=== PATIENT | female | born 1970 | race Caucasian/White ===

== ENCOUNTER 2018-03-29 09:56 | Inpatient (IN) | payer SELFPAY ==
[~2018-03-29] VITALS: Ht 162.6 cm; Wt 135.3 kg
[2018-03-29 11:10] VITALS: BP 153/59
[2018-03-29] MEDS ORDERED: DOCUSATE SODIUM 100 MG CAPSULE. PO PRN (12:00)
[2018-03-29] MEDS ORDERED: ONDANSETRON PF 4 MG/2 ML VIAL. IV PRN (12:00)
[2018-03-29] MEDS ORDERED: ACETAMINOPHEN 325 MG TABLET. PO PRN (12:00)
[2018-03-29] MEDS ORDERED: MORPHINE SULFATE 2 MG/ML VIAL. IV PRN (12:00)
[2018-03-29] MEDS ORDERED: traMADol 50 MG TABLET PO PRN (12:00)
[2018-03-29] MEDS ORDERED: LIDO700A39 TP (12:09)
[2018-03-29] MEDS ORDERED: CLON1PAT TD (12:09)
[2018-03-29] MEDS ORDERED: DIPH25CA58 PO (12:09)
[2018-03-29] MEDS ORDERED: LOSA50TA7 PO (12:09)
[2018-03-29] MEDS ORDERED: FERR325T14 PO (12:09)
[2018-03-29] MEDS ORDERED: L. R1CAP2 PO (12:09)
[2018-03-29] MEDS ORDERED: ONDA4TAB12 PO (12:09)
[2018-03-29] MEDS ORDERED: LACT1CAP19 PO (12:09)
[2018-03-29 12:53] LABS: BASO # 0.1 x10^3/uL (0.0-0.2); BASO % 1 % (0-3); EOS # 0.2 x10^3/uL (0.0-0.7); EOS % 1 % (0-3); HEMATOCRIT 30.6 % (36.0-47.0); HEMOGLOBIN 10.2 g/dL (12.0-15.5); LYMPH # 1.9 x10^3/uL (1.0-4.8); LYMPH % 18 % (24-48); MEAN CORPUSCULAR HEMOGLOBIN 26 pg (25-35); MEAN CORPUSCULAR HGB CONC 33 g/dL (31-37); MEAN CORPUSCULAR VOLUME 77 fL (79-100); MONO # 0.7 x10^3/uL (0.0-1.1); MONO % 7 % (0-9); NEUT # 7.6 x10^3uL (1.8-7.7); NEUT % 72 % (31-73); PLATELET COUNT 245 x10^3/uL (140-400); RED BLOOD COUNT 3.98 x10^6/uL (3.50-5.40); RED CELL DISTRIBUTION WIDTH 18.2 % (11.5-14.5); WHITE BLOOD COUNT 10.5 x10^3/uL (4.0-11.0)
[2018-03-29] MEDS ORDERED: VANCOMYCIN 2 GM in IV NORMAL SALINE 500ML BAG 500 ML IV SCH (13:00)
[2018-03-29] MEDS ORDERED: PIP/TAZO PER PHARMACY MC PRN (13:00)
[2018-03-29] MEDS ORDERED: DEXTROSE 50% 25 GM / 50ML DISP.SYRIN. IV PRN (13:00)
[2018-03-29] MEDS ORDERED: VANCOMYCIN PER PHARMACY MC PRN (13:00)
[2018-03-29] MEDS ORDERED: LABETALOL 20 MG/4 ML DISP.SYRIN. IVP PRN (13:00)
[2018-03-29] MEDS ORDERED: ALBUTEROL SULFATE 2.5 MG/3 ML NEBU. NEB PRN (13:00)
--- NOTE | 2018-03-29 13:01 | PDOC1 ---
History and Physical Date of Admission Date of Admission 03/29/18 Identification/Chief Complaint Chief Complaint AMS Source Source: Chart review, Patient History of Present Illness History of Present Illness 47yO f, WITH dm2, was transferred from [facility] for possible stroke or seizure. Pt is a poor historian. She said she lives a lone, walks ok, not on insulin for dm2. Last , she fell off her bed, could not get up for 5 hours 2/2 weakness. Her sister came to check her that day and called EMS. pt was sent to [facility], was found DKA, bl lower lobe PE, started insulin and lovenox bid. yesterday, as per nurse from [facility], pt became unresponsive, eyes rolling up. But pt doesnot remember and cannot tell me anything. She denies ext weakness or numbness, but during PE pt could not move left leg much. BL hands strengh ok, can move rt leg a little bit, but also very weak. PT DENIEs stroke history, CT showed chronic stroke. She also said she had sob, denies chest pain, fever, chill, cough. She also said low po intake for the past week in [facility], had N/V. [facility] doc didnot tell me that she had PE, i was told by nurse and found + bcx on the transfer paper. Past Medical History Endocrine: Diabetes Past Surgical History Past Surgical History: Hernia Repair Family History Family History: Hypertension Social History Smoke: No ALCOHOL: none Drugs: None Current Medications Current Medications Current Medications Medications (Trade) Dose Ordered Sig/Emmy Start Time Stop Time Status Last Admin Dose Admin Acetaminophen (Tylenol) 650 mg PRN Q6HRS PRN 03/29/18 12:00 UNV Docusate Sodium (Colace) 100 mg PRN DAILY PRN 03/29/18 12:00 UNV Morphine Sulfate (Morphine Sulfate) 2 mg PRN Q2HR PRN 03/29/18 12:00 UNV Ondansetron HCl (Zofran) 4 mg PRN Q6HRS PRN 03/29/18 12:00 UNV Tramadol HCl (Ultram) 50 mg PRN Q6HRS PRN 03/29/18 12:00 UNV ROS Review of System CONSTITUTIONAL: No fever or chills EYES: No recent changes SKIN: No rash or itching CARDIOVASCULAR: No chest pain, syncope, palpitations, or edema RESPIRATORY: No SOB or cough GASTROINTESTINAL: No nausea, vomiting or abdominal pain NEUROLOGICAL: No headaches or weakness ENDOCRINE: No cold or heat intolerance GENITOURINARY: No urgency or frequency of urination MUSCULOSKELETAL: No back pain or joint pain LYMPHATICS: No enlarged lymph nodes PSYCHIATRIC: No anxiety or depression Physical Exam Physical Exam GEN.: No apparent distress. Alert and oriented. forgetful. HEENT: Head is normocephalic, atraumatic NECK: Supple. LUNGS: Clear to auscultation. HEART: RRR, S1, S2 present. Peripheral pulses intact ABDOMEN: Soft, nontender. Positive bowel sounds. ventral hernia reducible no tenderness. EXTREMITIES: Without any cyanosis. bl hands strength 5/5. rt leg strength 3 /5, left leg 2/5. NEUROLOGIC: Normal speech, normal tone PSYCHIATRIC: Normal affect, normal mood. SKIN: No ulcerations Vitals Vitals Vital Signs Date Time Temp Pulse Resp B/P (MAP) Pulse Ox O2 Delivery O2 Flow Rate FiO2 03/29/18 11:10 96.6 61 18 153/59 (90) 96 Room Air 96.6 VTE Prophylaxis Ordered VTE Prophylaxis Devices: Yes VTE Pharmacological Prophylaxi: No Assessment/Plan Assessment/Plan AMS, unresponsiveness at [facility], possible seizure DKA RESOlved BL lower lobe PE bacteremia dm2 uncontrolled, Hba1c >9 morbid obesity ventral hernia LAZARO generalized weakness plan: neuro, id, pulm consult brain MRI cont some home meds, ssi for now ivf ada diet if can tolerate check bcx, add vanco, zosyn for now, asked nurse to see if can get bcx at [facility] PTOT add eliquis bid for PE sw pt may need to go to rehab MARICHUY ESCALERA MD Mar 29, 2018 13:01
[2018-03-29 13:04] LABS: CALCIUM 8.6 mg/dL (8.5-10.1); CREATININE 0.7 mg/dL (0.6-1.0); GFR 89.7; POTASSIUM 3.4 mmol/L (3.5-5.1)
--- NOTE | 2018-03-29 13:43 | RAD ---
EXAM: Chest, single view. HISTORY: Pulmonary embolism. COMPARISON: CT angiogram dated 03/25/2018. FINDINGS: A frontal view of the chest obtained. There is bilateral lower lobe atelectasis or interstitial infiltrate with suspected trace to small pleural effusions. There is a prominent cardiac silhouette. There is no pneumothorax. There is a left PICC with the tip near the junction of the left brachiocephalic vein and superior vena cava. IMPRESSION: 1. Left greater than right lower lobe atelectasis or infiltrate with suspected trace to small pleural effusions. 2. Left PICC with the tip overlying the junction of the left brachiocephalic vein and superior vena cava. Electronically signed by: Blossom Boo MD (03/29/2018 1:39 PM) [place] [id number]
[2018-03-29 14:00] LABS: % BANDS 4 % (0-9); % EOS 2 % (0-5); % LYMPHS 20 % (24-48); % METAS 3 % (0-0); % MONOS 6 % (0-10); % MYELOS 1 % (0-0); % SEGS 64 % (35-66); ANISOCYTOSIS SLIGHT; PLT ESTIMATE ADEQUATE (ADEQUATE)
--- NOTE | 2018-03-29 14:22 | PDOC ---
Provider Note Provider Note pt seen examined [id number] SEBASTIAN NAIDU MD Mar 29, 2018 14:22
[2018-03-29 15:00] VITALS: BP 165/78
[2018-03-29] MEDS: IV NORMAL SALINE 1000ML BAG 1,000 ML IV SCH (15:44)
[2018-03-29] MEDS: PIPERACILLIN/TAZOBACTAM 4.5 GM in IV NORMAL SALINE 100ML 100 ML IV SCH ×2 (15:44→20:05)
[2018-03-29] MEDS: LIDOCAINE (700MG/PATCH) PATCH. TD SCH (15:50)
[2018-03-29] MEDS: INSULIN LISPRO 300 UNITS/3 ML INSULN.PEN. SQ SCH (17:00)
--- NOTE | 2018-03-29 17:33 | RAD ---
MRI Brain without contrast History: Left leg weakness Technique: Multiplanar, multisequential noncontrast MR imaging was performed of the brain. Contrast: None Comparison: None Findings: There 5 foci of restricted diffusion on the right involving the right frontal white matter as well as the right oh radiata and basal ganglia as well as right extreme capsule and insula. There is associated T2 and FLAIR hyperintense signal. There are other old lacunar infarcts of the bilateral basal ganglia and oh radiata and also the right frontal parietal deep white matter. There is degree of exvacuo dilatation of the left lateral ventricle. There is mild generalized supratentorial involutional change. There is other scattered mild T2 and FLAIR hyperintense abnormality of the supratentorial white matter. There is focus of old microhemorrhage along the cortical surface left frontal lobe, also mild hemosiderin deposition associated with dominant old left basal ganglia lacunar infarct. There is preservation of the major arterial intracranial flow voids at the skull base. Cerebellar tonsils are normal in location. There is nonspecific heterogeneous signal of the clivus. Impression: 1. There are foci of recent subacute infarcts on the right involving the right frontal white matter, oh radiata and basal ganglia as well as right extreme capsule and insula. There are several old lacunar infarcts bilaterally as stated. FOR INTERNAL CODING PURPOSES Critical result: Findings discussed with patient's nurse Kayla at 03/29/2018 5:27 PM. RESULT CODE: (C) Electronically signed by: Gautam Kaur MD (03/29/2018 5:30 PM) [id number]
--- NOTE | 2018-03-29 18:22 | CONS ---
DATE OF CONSULTATION: REFERRING PHYSICIAN: Dr. Martinez. REASON FOR CONSULTATION: Gram-positive cocci bacteremia. HISTORY OF PRESENT ILLNESS: A 47-year-old female with history of diabetes mellitus type 2, was transferred from [facility] where she presented on with complaints of not feeling well. The patient has a history of diabetes mellitus, noncompliance. She said that she had not taken her medications for quite some time. She lives alone. She was found on the floor for more than 4 hours per family. Glucose reading by paramedics was high. The patient was found to be in DKA. She had blood cultures done, which are reported 1 out of 2 bottles positive for gram-positive cocci. ID and MALGORZATA is pending from [facility]. She had leukocytosis. Working diagnosis was DKA, sepsis, likely urosepsis. She was given ceftriaxone. She also had elevated BUN and creatinine, dehydration, hyponatremia from DKA, elevated lactate at 5.3, elevated CK from rhabdo, morbid obesity, mental status changes. She had a CT, which did not show any acute changes, but she has a history of previous bibasilar ganglia infarcts, probably chronic. She also had metabolic abnormalities with hypokalemia, which was thought to be from diabetic ketoacidosis with abnormal LFTs, generalized weakness, deconditioning, iron deficiency anemia and protein-calorie malnutrition. She was started on empiric ceftriaxone. She had a CTA, which showed bilateral PE. Today, the patient is not able to tell us anything. She is more alert and awake, answers a few questions, does say that she lives alone at home. Denies any fevers, chills, sore throat, difficulty swallowing, nausea, vomiting, diarrhea, abdominal pain. The patient had sustained a history of fall and has some superficial abrasions. The patient has been started on empiric IV vancomycin and Zosyn here and ID consult has been requested for antibiotic management. PAST MEDICAL HISTORY: Diabetes, noncompliance, history of previous infarct, morbid obesity, DKA at [facility], hypokalemia, hyponatremia, elevated CK, possible UTI, mental status changes. PAST SURGICAL HISTORY: Hernia repair. FAMILY HISTORY: As per HPI. SOCIAL HISTORY: Denies smoking, ETOH or illicit drug use. Lives alone at home. CURRENT MEDICATIONS: IV vancomycin and Zosyn. REVIEW OF SYSTEMS: Limited, but essentially as above in the HPI. PHYSICAL EXAMINATION: VITAL SIGNS: Temperature 96.6, pulse 61, respiratory rate 18, blood pressure 153/59, oxygen saturation 96% on room air. GENERAL: Alert, awake, somewhat confused female in no acute distress, cooperative, answers a few questions in yes and no. HEENT: Normocephalic, atraumatic, anicteric. No thrush. NECK: Supple. LUNGS: Clear bilaterally. HEART: S1, S2. ABDOMEN: Soft, obese. Bowel sounds present. Ventral hernia reducible. No tenderness. EXTREMITIES: No cyanosis, no clubbing. NEUROLOGIC: Alert, awake. Normal speech. PSYCHIATRIC: Normal affect. Cooperative. DERMATOLOGIC: No generalized rash. LABORATORY DATA: WBC 10.5, hemoglobin 10.2, hematocrit 30.6, platelets 245, neutrophils 72. Sodium 142, potassium 3.4, chloride 104, bicarbonate 30, BUN 23, creatinine 0.7, glucose 172, calcium 8.6. MICROBIOLOGY: Blood culture from [facility] on 03/23/2018, 1 out of 2 bottles positive for methicillin-sensitive Staphylococcus epidermidis, oxacillin sensitive. IMPRESSION: 1. Altered mental status, likely from diabetic ketoacidosis, improving. 2. Diabetic ketoacidosis, resolved. 3. Bilateral lower pulmonary embolism. 4. Staphylococcus epidermidis, methicillin-sensitive, Staphylococcus bacteremia, 1 out of 2 bottles on 03/23/2018, likely contaminant. 5. Morbid obesity. 6. Diabetes mellitus 2, uncontrolled. 7. Ventral hernia, stable, reducible 8. Obstructive sleep apnea. 9. Generalized weakness. 10. Rhabdomyolysis. 11. History of urinary tract infection at outside hospital. I do not have the details on the same. RECOMMENDATIONS: 1. We will discontinue IV vancomycin. 2. Continue empiric Zosyn for now. 3. Follow up blood culture results. 4. Continue supportive care. 5. Follow up labs in the a.m. and cultures. Thank you, Dr. Martinez for consulting Infectious Disease to participate in this patient's care. If you have any questions, do not hesitate to contact me. SEBASTIAN NAIDU MD DR: SAV/camille JOB#: [id number] / [id number]
--- NOTE | 2018-03-29 18:53 | PDOC2 ---
NEUROLOGY CONSULT Date of Admission Date of Admission DATE: 03/29/18 TIME: 18:36 Reason for Consult Reason for Consult: IMPRESSION: Subacute right frontal WM, oh radiata, BG, insular, and external capsule infracts, embolic etiology. Metabolic encephalopathy. PE. Hyperglycemia, glucose 573. DKA. DM, poorly controlled. UTI. Lactic acidosis. Old bilateral hemisphere lacunar infarcts. Morbid obesity. RECOMMENDATIONS/PLAN: Continue Eliquis. Carotid A US + Doppler. Echo + bubble study. Lab: see orders, including fasting lipids panel. Treat medical diseases. Control hyperglycemia. OT/PT. Weight reduction. HISTORY OF THE PRESENT ILLNESS: 47-y-old patient with above medical diseases fell over the bed and was unable to get up. She was on the floor for about 5 hours until her sister went to her place to check on her. She was brought to the ER of [facility] by EMS, and was eventually transferred to [facility]. Her glucose level was 473. She had confusional episodes, so neurology was requested for consultation. PAST MEDICAL HISTORY: Diabetes, noncompliance. Stroke. Morbid obesity. DKA at [facility], hypokalemia, hyponatremia, elevated CK, possible UTI , mental status changes. PAST SURGICAL HISTORY: Hernia repair. ALLERGY: Reviewed. MEDICATIONS: Refer to [facility] FAMILY HISTORY: Unknown. SOCIAL HISTORY: Lives alone. Denies current smoking, drinking, and illicit drug use. REVIEW OF SYSTEMS: Constitutional: Morbid obesity. Head: No traumatic brain or head injury. Skin: No edema, or rash. Ear: No infection. Eyes: No vision loss or color blindness. Nose: No bleeding or purulent discharges. Hearing: No hearing decrease. Neck: No injury. Breast: No history of cancer, masses,or discharges. Cardiac: No ND, arrhythmia. Pulmonary: No COPD. GI: No GI ulcer, GI bleeding. Urinary/genital: UTI. Endocrinologic: Diabetes Mellitus, morbid obesity. Skeletomuscular: No muscular atrophy, deformity. Neurological: see HP. Psychiatric: Denies drug use/abuse. Otherwise, not [id number] review of systems. PHYSICAL EXAMINATION: General appearance is in subacute distress. HEENT: Normocephalic and nontraumatic. Eyes, nose, ears, and throat are unremarkable. Neck is supple. No lymphadenopathy. No crepitus. Cardiovascular: S1, S2, regular rate and rhythm. Pulmonary: Clear to auscultation bilaterally. Abdomen: Bowel sounds are positive. Extremities: No rash, lesions, or edema. No restriction of range of motion NEUROLOGICAL EXAMINATION: Awake. Not oriented to time, but knew place and person. PERRL. EOMI. CN: no focal findings. Muscle tone: decreased. Muscle strength: 4+ UE, 3- LE? DTR: 0-1 due to obesity. Plantar reflex: Flexor response bilaterally Gait: Not able to walk. Sensory exam: no acute abnormal findings. No cerebellar signs elicited. F-T-N test fine. Current Medications Current Medications Current Medications Acetaminophen (Tylenol) 650 mg PRN Q6HRS PRN PO FEVER; Start 03/29/18 at 12:00 Ondansetron HCl (Zofran) 4 mg PRN Q6HRS PRN IV NAUSEA/VOMITING; Start 03/29/18 at 12:00 Morphine Sulfate (Morphine Sulfate) 2 mg PRN Q2HR PRN IV MODERATE TO SEVERE PAIN; Start 03/29/18 at 12:00 Tramadol HCl (Ultram) 50 mg PRN Q6HRS PRN PO MILD TO MODERATE PAIN; Start 03/29 at 12:00 Docusate Sodium (Colace) 100 mg PRN DAILY PRN PO CONSTIPATION; Start 03/29/18 at 12:00 Clonidine HCl (Catapres Tts-1) 1 patch We TD ; Start 04/04/18 at 09:00 Ferrous Sulfate (Feosol) 325 mg DAILY08 PO ; Start 03/30/18 at 08:00 Losartan Potassium (Cozaar) 50 mg DAILY PO ; Start 03/30/18 at 09:00 Lidocaine (Lidoderm) 1 patch DAILY TD Last administered on 03/29/18at 15:50; Start 03/29/18 at 15:00 Vancomycin HCl (Vanco Per Pharmacy) 1 each PRN DAILY PRN MC SEE COMMENTS; Start 03/29/18 at 13:00; Stop 03/29/18 at 14:23; Status DC Vancomycin HCl 2 gm/Sodium Chloride 500 ml @ 250 mls/hr Q12H IV ; Start at 13:00; Stop 03/29/18 at 14:23; Status DC Piperacillin Sod/ Tazobactam Sod 4.5 gm/Sodium Chloride 100 ml @ 200 mls/hr Q6HRS IV Last administered on 03/29/18at 15:44; Start 03/29/18 at 15:00 Piperacillin Sod/ Tazobactam Sod (Zosyn Per Pharmacy) 1 each PRN DAILY PRN MC SEE COMMENTS; Start 03/29/18 at 13:00 Apixaban (Eliquis) 10 mg BID PO ; Start 03/29/18 at 21:00 Insulin Human Lispro (HumaLOG) 0-9 UNITS TIDWMEALS SQ ; Start 03/29/18 at 17:00 Dextrose (Dextrose 50%-Water Syringe) 12.5 gm PRN Q15MIN PRN IV SEE COMMENTS; Start 03/29/18 at 13:00 Sodium Chloride 1,000 ml @ 75 mls/hr [id number] IV Last administered on at 15:44; Start 03/29/18 at 13:00 Albuterol Sulfate (Ventolin Neb Soln) 2.5 mg PRN Q4HRS PRN NEB SHORTNESS OF BREATH; Start 03/29/18 at 13:00 Labetalol HCl (Normodyne Iv Push) 20 mg PRN Q2HR PRN IVP HYPERTENSION, SEE COMMENTS; Start 03/29/18 at 13:00 Active Scripts Active Reported Benadryl (Diphenhydramine Hcl) 25 Mg Capsule 50 Mg PO HS Clonidine Tts-1 (Clonidine) 1 Each Patch.tdwk 1 Patch TD WEEKLY Ondansetron Odt (Ondansetron) 4 Mg Tab.rapdis 4 Mg PO BID PRN Losartan Potassium 50 Mg Tablet 50 Mg PO DAILY Lidocaine 1 Each Adh..patch 1 Each TP DAILY Culturelle (Lactobacillus Rhamnosus Gg) 1 Each Cap.sprink 1 Each PO BID Culturelle Capsule (L. Rhamnosus GG/Inulin) 1 Each Cap.sprink 1 Each PO Ferrous Sulfate 325 Mg Tablet 1 Tab PO DAILY Allergies Allergies: Allergies Coded Allergies Type Severity Reaction Last Updated Verified No Known Drug Allergies 03/29/18 No ROS Review of System The patient denies any associated fevers, chills, headache, ear pain, rhinorrhea , sore throat, stiff neck, productive cough, chest pain, shortness of breath, back or flank pain, abdominal pain, nausea, vomiting, diarrhea, constipation, dysuria, rash, numbness, weakness, tingling, incontinence, difficulty ambulating, or diaphoresis. Physical Exam Physical Exam General: Well developed, well nourished, no acute distress, well appearing HEENT: Pupils equally round and reactive to light, EOMI, no discharge, normal conjunctiva Neck: Supple, no nuchal rigidity, no JVD, trachea midline, no tenderness Cardiac: RRR, no murmurs, no gallops, no rubs Chest/Lungs: CTAB, no wheeze, no rhonchi, no crackles Abdomen: soft, non-distended, no guarding, no peritoneal signs, non-tender Back: No tenderness Extremities: no edema, pulses intact, non-tender,capillary refill <3 sec bilateral upper and lower extremities, Neuro: Alert and oriented x 4, no focal deficits, normal speech Vitals Vitals: Vital Signs Date Time Temp Pulse Resp B/P (MAP) Pulse Ox O2 Delivery O2 Flow Rate FiO2 03/29/18 15:00 98.5 80 18 165/78 (107) 96 Room Air 98.5 Labs Labs Laboratory Tests Test 03/29/18 12:40 03/29/18 17:36 White Blood Count 10.5 x10^3/uL (4.0-11.0) Red Blood Count 3.98 x10^6/uL (3.50-5.40) Hemoglobin 10.2 g/dL (12.0-15.5) Hematocrit 30.6 % (36.0-47.0) Mean Corpuscular Volume 77 fL (79-100) Mean Corpuscular Hemoglobin 26 pg (25-35) Mean Corpuscular Hemoglobin Concent 33 g/dL (31-37) Red Cell Distribution Width 18.2 % (11.5-14.5) Platelet Count 245 x10^3/uL (140-400) Neutrophils (%) (Auto) 72 % (31-73) Lymphocytes (%) (Auto) 18 % (24-48) Monocytes (%) (Auto) 7 % (0-9) Eosinophils (%) (Auto) 1 % (0-3) Basophils (%) (Auto) 1 % (0-3) Neutrophils # (Auto) 7.6 x10^3uL (1.8-7.7) Lymphocytes # (Auto) 1.9 x10^3/uL (1.0-4.8) Monocytes # (Auto) 0.7 x10^3/uL (0.0-1.1) Eosinophils # (Auto) 0.2 x10^3/uL (0.0-0.7) Basophils # (Auto) 0.1 x10^3/uL (0.0-0.2) Segmented Neutrophils % 64 % (35-66) Band Neutrophils % 4 % (0-9) Lymphocytes % 20 % (24-48) Monocytes % 6 % (0-10) Eosinophils % 2 % (0-5) Metamyelocytes % 3 % (0-0) Myelocytes % 1 % (0-0) Platelet Estimate Adequate (ADEQUATE) Giant Platelets Occ Anisocytosis Slight Sodium Level 142 mmol/L (136-145) Potassium Level 3.4 mmol/L (3.5-5.1) Chloride Level 104 mmol/L (98-107) Carbon Dioxide Level 30 mmol/L (21-32) Anion Gap 8 (6-14) Blood Urea Nitrogen 23 mg/dL (7-20) Creatinine 0.7 mg/dL (0.6-1.0) Estimated GFR (Cockcroft-Gault) 89.7 Glucose Level 172 mg/dL (70-99) Calcium Level 8.6 mg/dL (8.5-10.1) Glucose (Fingerstick) 156 mg/dL (70-99) Laboratory Tests Test 03/29/18 12:40 03/29/18 17:36 White Blood Count 10.5 x10^3/uL (4.0-11.0) Red Blood Count 3.98 x10^6/uL (3.50-5.40) Hemoglobin 10.2 g/dL (12.0-15.5) Hematocrit 30.6 % (36.0-47.0) Mean Corpuscular Volume 77 fL (79-100) Mean Corpuscular Hemoglobin 26 pg (25-35) Mean Corpuscular Hemoglobin Concent 33 g/dL (31-37) Red Cell Distribution Width 18.2 % (11.5-14.5) Platelet Count 245 x10^3/uL (140-400) Neutrophils (%) (Auto) 72 % (31-73) Lymphocytes (%) (Auto) 18 % (24-48) Monocytes (%) (Auto) 7 % (0-9) Eosinophils (%) (Auto) 1 % (0-3) Basophils (%) (Auto) 1 % (0-3) Neutrophils # (Auto) 7.6 x10^3uL (1.8-7.7) Lymphocytes # (Auto) 1.9 x10^3/uL (1.0-4.8) Monocytes # (Auto) 0.7 x10^3/uL (0.0-1.1) Eosinophils # (Auto) 0.2 x10^3/uL (0.0-0.7) Basophils # (Auto) 0.1 x10^3/uL (0.0-0.2) Segmented Neutrophils % 64 % (35-66) Band Neutrophils % 4 % (0-9) Lymphocytes % 20 % (24-48) Monocytes % 6 % (0-10) Eosinophils % 2 % (0-5) Metamyelocytes % 3 % (0-0) Myelocytes % 1 % (0-0) Platelet Estimate Adequate (ADEQUATE) Giant Platelets Occ Anisocytosis Slight Sodium Level 142 mmol/L (136-145) Potassium Level 3.4 mmol/L (3.5-5.1) Chloride Level 104 mmol/L (98-107) Carbon Dioxide Level 30 mmol/L (21-32) Anion Gap 8 (6-14) Blood Urea Nitrogen 23 mg/dL (7-20) Creatinine 0.7 mg/dL (0.6-1.0) Estimated GFR (Cockcroft-Gault) 89.7 Glucose Level 172 mg/dL (70-99) Calcium Level 8.6 mg/dL (8.5-10.1) Glucose (Fingerstick) 156 mg/dL (70-99) GOVIND DUMONT MD Mar 29, 2018 18:52
[2018-03-29 19:00] VITALS: BP 171/83
[2018-03-29] MEDS ORDERED: APIXABAN 5 MG TABLET. PO SCH (21:00)
[2018-03-29 23:00] VITALS: BP 170/83
[2018-03-30] MEDS: PIPERACILLIN/TAZOBACTAM 4.5 GM in IV NORMAL SALINE 100ML 100 ML IV SCH ×2 (00:18→05:09)
[2018-03-30] MEDS: IV NORMAL SALINE 1000ML BAG 1,000 ML IV SCH ×2 (02:20→15:33)
[2018-03-30 03:00] VITALS: BP 149/74
[2018-03-30 04:45] LABS: BASO # 0.1 x10^3/uL (0.0-0.2); BASO % 1 % (0-3); EOS # 0.2 x10^3/uL (0.0-0.7); EOS % 2 % (0-3); HEMATOCRIT 30.3 % (36.0-47.0); HEMOGLOBIN 9.6 g/dL (12.0-15.5); LYMPH # 1.6 x10^3/uL (1.0-4.8); LYMPH % 17 % (24-48); MEAN CORPUSCULAR HEMOGLOBIN 25 pg (25-35); MEAN CORPUSCULAR HGB CONC 32 g/dL (31-37); MEAN CORPUSCULAR VOLUME 80 fL (79-100); MONO # 0.7 x10^3/uL (0.0-1.1); MONO % 8 % (0-9); NEUT # 7.1 x10^3uL (1.8-7.7); NEUT % 73 % (31-73); PLATELET COUNT 199 x10^3/uL (140-400); RED BLOOD COUNT 3.78 x10^6/uL (3.50-5.40); WHITE BLOOD COUNT 9.8 x10^3/uL (4.0-11.0)
[2018-03-30 05:35] LABS: CALCIUM 8.2 mg/dL (8.5-10.1); CREATININE 0.8 mg/dL (0.6-1.0); GFR 76.9; POTASSIUM 3.6 mmol/L (3.5-5.1)
[2018-03-30 06:23] LABS: CHOLESTEROL/HDL RATIO 8.5
[2018-03-30 07:00] VITALS: BP 160/50
--- NOTE | 2018-03-30 08:23 | RAD ---
Carotid ultrasound, 03/29/2018: HISTORY: CVA, left-sided weakness, diabetes Duplex evaluation of the carotid arteries and neck was performed including grayscale, color-flow and spectral Doppler analysis. There is mild intimal thickening bilaterally. No prominent plaque formation is seen. The peak systolic velocity in the proximal right common carotid artery is 170 cm/s and on the left is 186 cm/s at this level. These relatively high velocities may be related to hypertension. No stenosis is seen. The peak systolic velocity in the right internal carotid artery is 68 cm per sec with an end-diastolic velocity of 26 cm/s. The peak systolic velocity in the left internal carotid artery is 84 cm per sec with an end-diastolic velocity of 34 cm/s. These Doppler findings do not suggest significant stenosis. Antegrade flow is present in both vertebral arteries in the neck. IMPRESSION: No duplex evidence of a significant stenosis at either carotid bifurcation. Note: Stenosis calculations for CT, MRA and conventional angiography are based upon determination of the distal ICA diameter in accordance with the NASCET methodology. Stenosis calculations for Doppler studies are derived from validated velocity criteria which are known to correlate with NASCET methodology of determining stenosis. Electronically signed by: Chriss Neri MD (03/30/2018 8:20 AM) [facility]
--- NOTE | 2018-03-30 10:00 | CONS ---
DATE OF CONSULTATION: ATTENDING PHYSICIAN: Dr. Martinez. REASON FOR CONSULTATION: Pulmonary embolism. HISTORY OF PRESENT ILLNESS: The patient is a 47-year-old female who is obese with a BMI of 51.8. The patient lives alone, and she is not fully active, but does ambulate. She has diabetes as well. She says that she fell off her bed. She could not get up for 5 hours and had weakness. Her sister who came to check on her called EMS. She went to [facility], she was found to be in DKA and also had a CT angiogram which was reviewed by me and had bilateral lower lobe pulmonary embolism and no central pulmonary emboli seen. She was started on Lovenox and yesterday she became unresponsive and could not remember what happened. The patient's venous Dopplers were negative. She was transferred for further evaluation. Neurology saw the patient. The patient underwent MRI of the brain and was found to have foci of recent subacute infarcts involving the right frontal matter as well as a basal ganglia and oh radiata. There are also several lacunar infarcts seen. I have been asked to see her for further evaluation. The patient denies any history of malignancy. Denies any history of hypercoagulable disorders. She has been on Eliquis. PAST MEDICAL HISTORY: Significant for history of diabetes. No significant history of tobacco use. No prior history of pulmonary embolism. PAST SURGICAL HISTORY: Hernia repair. FAMILY HISTORY: Hypertension. No hypercoagulable state in the family. SOCIAL HISTORY: Nonsmoker, nonalcoholic. ALLERGIES: None. MEDICATIONS: All reviewed as listed in the MRAD including Eliquis and antibiotics. PHYSICAL EXAMINATION: GENERAL: She is awake, in no obvious respiratory distress. VITAL SIGNS: Reviewed. Blood pressure on the high side 160/50, afebrile, pulse ox 93% on room air. NECK: Supple. LUNGS: With diminished breath sounds. CARDIOVASCULAR: Regular rate and rhythm. ABDOMEN: Soft. She has a large inguinal hernia. EXTREMITIES: Nonpitting edema. LABORATORY DATA: Reviewed. White cell count 9.8, hemoglobin 9.6 and platelets of 199. BUN 19, creatinine 0.8. Echocardiogram has been ordered and pending. Venous Dopplers were negative. IMPRESSION: 1. Acute pulmonary embolism in a patient who is morbidly obese with a BMI of 51.8 and fell off her bed last week. Her morbid obesity and immobilization appeared to be likely risk factors. However, she should be ruled out for hypercoagulable state. Venous Dopplers were negative. The patient should also be ruled out for any intracardiac shunt as she has developed embolic lacunar infarcts. 2. Recent encephalopathy and brain MRI showing recent subacute infarcts as well as several old lacunar infarcts. 3. No significant history of tobacco use. 4. No known malignancy and no known hypercoagulable state. RECOMMENDATIONS: 1. From a pulmonary standpoint, she is hemodynamically stable and currently on room air. I will continue with Eliquis for a minimum of 3-6 months. 2. Obtain hypercoagulable panel. 3. Obtain echocardiogram to rule out any right to left shunt. 4. Antibiotics per Infectious Disease. 5. She will have a repeat CT angiogram in 6 weeks. BANDAR BENOIT MD DR: CARLINE/camille JOB#: [id number] / [id number]
[2018-03-30 11:00] VITALS: BP 133/86
--- NOTE | 2018-03-30 11:00 | CARD ---
MR#: [id number] Date of Study: 03/30/2018 Ordering Physician: GOVIND DUMONT, Referring Physician: MARICHUY ESCALERA Tech: Petty Rashid RDCS APPROVED REPORT EXAM: Two-dimensional and M-mode echocardiogram with Doppler and color Doppler. Other Information Quality : Good INDICATION CVA/TIA Echo Enhancing Agent Agent/Amount Used: Agitated Saline 24mL 2D DIMENSIONS RVDd2.7 (2.9-3.5cm)Left Atrium(2D)4.2 (1.6-4.0cm) IVSd1.6 (0.7-1.1cm)Aortic Root(2D)3.2 (2.0-3.7cm) LVDd4.8 (3.9-5.9cm)LVOT Diameter2.4 (1.8-2.4cm) PWd1.5 (0.7-1.1cm)LVDs2.6 (2.5-4.0cm) FS (%) 30.0 %SV82.1 ml LVEF(%)60.0 (>50%) Aortic Valve AoV Peak Danilo.164.8cm/sAoV VTI30.7cm AO Peak GR.10.9mmHgLVOT VTI 23.02cm AO Mean GR.6mmHgAVA (VTI)3.30cm2 AI P 1/2 [id number] Mitral Valve MV E Xyomrluq28.3cm/sMV DECEL [id number] MV A Uorihjuc83.2cm/sE/A Ratio1.1 TDI Lateral E' P. V8.04cm/sMedial E' P. V7.21cm/s E/Lateral E'10.9E/Medial E'12.1 Pulmonary Vein S1 Wmqnpegj32.7cm/sS2 Bvetkvqc85.72cm/s D2 Dyprbihh11.7cm/s LEFT VENTRICLE The left ventricle is normal size. There is mild to moderate concentric left ventricular hypertrophy. The left ventricular systolic function is normal . The Ejection Fraction is 60-65%. There is normal LV segmental wall motion. The left ventricular diastolic function and filling is normal for age. RIGHT VENTRICLE The right ventricle is normal size. The right ventricular systolic function is normal. ATRIA The left atrium is mildly dilated. The right atrium is mildly dilated. The interatrial septum is inta ct with no evidence for an atrial septal defect or patent foramen ovale as noted on 2-D or Doppler im aging. Injection of bubbles documented no interatrial shunt. AORTIC VALVE The aortic valve is calcified but opens well. Doppler and Color Flow revealed trace aortic regurgitat ion. There is no significant aortic valvular stenosis. MITRAL VALVE The mitral valve is normal in structure and function. There is no evidence of mitral valve prolapse. There is no mitral valve stenosis. Doppler and Color-flow revealed trace mitral regurgitation. TRICUSPID VALVE The tricuspid valve is normal in structure and function. Doppler and Color Flow revealed no tricuspid valve regurgitation noted. There is no tricuspid valve stenosis. PULMONIC VALVE The pulmonic valve is not well visualized. Doppler and Color Flow revealed mild pulmonic valvular reg urgitation. There is no pulmonic valvular stenosis. GREAT VESSELS The aortic root is normal in size. The ascending aorta is mildly dilated at 3.7 cm. The IVC is dilate d and collapses >50% with inspiration. PERICARDIAL EFFUSION There is no evidence of significant pericardial effusion. Critical Notification Critical Value: No <Conclusion> The left ventricular systolic function is normal . The Ejection Fraction is 60-65%. There is normal LV segmental wall motion. Doppler and Color-flow revealed trace mitral regurgitation. There is no evidence of significant pericardial effusion. Injection of bubbles documented no interatrial shunt. Signed by : Fred Amato, Electronically Approved : 03/30/2018 10:59:47
[2018-03-30] MEDS: INSULIN LISPRO 300 UNITS/3 ML INSULN.PEN. SQ SCH ×3 (12:30→17:00)
[2018-03-30] MEDS: FERROUS SULFATE 325 MG TABLET. PO SCH (12:32)
[2018-03-30] MEDS: LOSARTAN POTASSIUM 50 MG TABLET. PO SCH (12:32)
[2018-03-30] MEDS: LIDOCAINE (700MG/PATCH) PATCH. TD SCH (12:33)
--- NOTE | 2018-03-30 12:33 | PDOC ---
PROGRESS NOTES Chief Complaint Chief Complaint Subacute right frontal stroke Obesity, BMI 52 Negative carotids Left-sided weakness Huge abd hernia, chronic History of Present Illness History of Present Illness sHe came for left-sided weakness and some difficulty swallowing-but did pass TIME [employer] on regular diet Left-side still weak Unfortunately self-pay Does have subacute stroke on MRI Claims was not any blood thinners at home CArotids neg Plan: Echo, start aspirin if not yet on aspirin Lipid panel PT OT while here Self-pay neuro consulted Vitals Vitals Vital Signs Date Time Temp Pulse Resp B/P (MAP) Pulse Ox O2 Delivery O2 Flow Rate FiO2 03/30/18 07:00 96.6 77 18 160/50 (86) 93 Room Air 96.6 Physical Exam General: Oriented X3, Cooperative, No acute distress, Other (no dysarthria appreciable) Heart: Regular rate, Normal S1, Normal S2 Lungs: Clear Abdomen: Normal bowel sounds, Soft Extremities: No clubbing, No cyanosis Skin: No rashes, No breakdown Labs LABS Laboratory Tests Test 03/29/18 12:40 03/29/18 17:36 03/29/18 20:57 03/30/18 04:15 White Blood Count 10.5 x10^3/uL (4.0-11.0) 9.8 x10^3/uL (4.0-11.0) Red Blood Count 3.98 x10^6/uL (3.50-5.40) 3.78 x10^6/uL (3.50-5.40) Hemoglobin 10.2 g/dL (12.0-15.5) 9.6 g/dL (12.0-15.5) Hematocrit 30.6 % (36.0-47.0) 30.3 % (36.0-47.0) Mean Corpuscular Volume 77 fL (79-100) 80 fL (79-100) Mean Corpuscular Hemoglobin 26 pg (25-35) 25 pg (25-35) Mean Corpuscular Hemoglobin Concent 33 g/dL (31-37) 32 g/dL (31-37) Red Cell Distribution Width 18.2 % (11.5-14.5) 18.0 % (11.5-14.5) Platelet Count 245 x10^3/uL (140-400) 199 x10^3/uL (140-400) Neutrophils (%) (Auto) 72 % (31-73) 73 % (31-73) Lymphocytes (%) (Auto) 18 % (24-48) 17 % (24-48) Monocytes (%) (Auto) 7 % (0-9) 8 % (0-9) Eosinophils (%) (Auto) 1 % (0-3) 2 % (0-3) Basophils (%) (Auto) 1 % (0-3) 1 % (0-3) Neutrophils # (Auto) 7.6 x10^3uL (1.8-7.7) 7.1 x10^3uL (1.8-7.7) Lymphocytes # (Auto) 1.9 x10^3/uL (1.0-4.8) 1.6 x10^3/uL (1.0-4.8) Monocytes # (Auto) 0.7 x10^3/uL (0.0-1.1) 0.7 x10^3/uL (0.0-1.1) Eosinophils # (Auto) 0.2 x10^3/uL (0.0-0.7) 0.2 x10^3/uL (0.0-0.7) Basophils # (Auto) 0.1 x10^3/uL (0.0-0.2) 0.1 x10^3/uL (0.0-0.2) Segmented Neutrophils % 64 % (35-66) Band Neutrophils % 4 % (0-9) Lymphocytes % 20 % (24-48) Monocytes % 6 % (0-10) Eosinophils % 2 % (0-5) Metamyelocytes % 3 % (0-0) Myelocytes % 1 % (0-0) Platelet Estimate Adequate (ADEQUATE) Giant Platelets Occ Anisocytosis Slight Sodium Level 142 mmol/L (136-145) 142 mmol/L (136-145) Potassium Level 3.4 mmol/L (3.5-5.1) 3.6 mmol/L (3.5-5.1) Chloride Level 104 mmol/L (98-107) 105 mmol/L (98-107) Carbon Dioxide Level 30 mmol/L (21-32) 24 mmol/L (21-32) Anion Gap 8 (6-14) 13 (6-14) Blood Urea Nitrogen 23 mg/dL (7-20) 19 mg/dL (7-20) Creatinine 0.7 mg/dL (0.6-1.0) 0.8 mg/dL (0.6-1.0) Estimated GFR (Cockcroft-Gault) 89.7 76.9 Glucose Level 172 mg/dL (70-99) 201 mg/dL (70-99) Calcium Level 8.6 mg/dL (8.5-10.1) 8.2 mg/dL (8.5-10.1) Glucose (Fingerstick) 156 mg/dL (70-99) 231 mg/dL (70-99) Triglycerides Level 288 mg/dL (0-150) Cholesterol Level 195 mg/dL (0-200) LDL Cholesterol, Calculated 114 mg/dL (0-100) VLDL Cholesterol, Calculated 58 mg/dL (0-40) Non-HDL Cholesterol Calculated 172 mg/dL (0-129) HDL Cholesterol 23 mg/dL (40-60) Cholesterol/HDL Ratio 8.5 Test 03/30/18 08:04 03/30/18 11:22 Glucose (Fingerstick) 204 mg/dL (70-99) 242 mg/dL (70-99) Review of Systems Review of Systems As per history of present illness, the rest of ROS 14 point negative Comment Review of Relevant I have reviewed the following items rex (where applicable) has been applied. Labs Laboratory Tests Test 03/29/18 12:40 03/29/18 17:36 03/29/18 20:57 03/30/18 04:15 White Blood Count 10.5 x10^3/uL (4.0-11.0) 9.8 x10^3/uL (4.0-11.0) Red Blood Count 3.98 x10^6/uL (3.50-5.40) 3.78 x10^6/uL (3.50-5.40) Hemoglobin 10.2 g/dL (12.0-15.5) 9.6 g/dL (12.0-15.5) Hematocrit 30.6 % (36.0-47.0) 30.3 % (36.0-47.0) Mean Corpuscular Volume 77 fL (79-100) 80 fL (79-100) Mean Corpuscular Hemoglobin 26 pg (25-35) 25 pg (25-35) Mean Corpuscular Hemoglobin Concent 33 g/dL (31-37) 32 g/dL (31-37) Red Cell Distribution Width 18.2 % (11.5-14.5) 18.0 % (11.5-14.5) Platelet Count 245 x10^3/uL (140-400) 199 x10^3/uL (140-400) Neutrophils (%) (Auto) 72 % (31-73) 73 % (31-73) Lymphocytes (%) (Auto) 18 % (24-48) 17 % (24-48) Monocytes (%) (Auto) 7 % (0-9) 8 % (0-9) Eosinophils (%) (Auto) 1 % (0-3) 2 % (0-3) Basophils (%) (Auto) 1 % (0-3) 1 % (0-3) Neutrophils # (Auto) 7.6 x10^3uL (1.8-7.7) 7.1 x10^3uL (1.8-7.7) Lymphocytes # (Auto) 1.9 x10^3/uL (1.0-4.8) 1.6 x10^3/uL (1.0-4.8) Monocytes # (Auto) 0.7 x10^3/uL (0.0-1.1) 0.7 x10^3/uL (0.0-1.1) Eosinophils # (Auto) 0.2 x10^3/uL (0.0-0.7) 0.2 x10^3/uL (0.0-0.7) Basophils # (Auto) 0.1 x10^3/uL (0.0-0.2) 0.1 x10^3/uL (0.0-0.2) Segmented Neutrophils % 64 % (35-66) Band Neutrophils % 4 % (0-9) Lymphocytes % 20 % (24-48) Monocytes % 6 % (0-10) Eosinophils % 2 % (0-5) Metamyelocytes % 3 % (0-0) Myelocytes % 1 % (0-0) Platelet Estimate Adequate (ADEQUATE) Giant Platelets Occ Anisocytosis Slight Sodium Level 142 mmol/L (136-145) 142 mmol/L (136-145) Potassium Level 3.4 mmol/L (3.5-5.1) 3.6 mmol/L (3.5-5.1) Chloride Level 104 mmol/L (98-107) 105 mmol/L (98-107) Carbon Dioxide Level 30 mmol/L (21-32) 24 mmol/L (21-32) Anion Gap 8 (6-14) 13 (6-14) Blood Urea Nitrogen 23 mg/dL (7-20) 19 mg/dL (7-20) Creatinine 0.7 mg/dL (0.6-1.0) 0.8 mg/dL (0.6-1.0) Estimated GFR (Cockcroft-Gault) 89.7 76.9 Glucose Level 172 mg/dL (70-99) 201 mg/dL (70-99) Calcium Level 8.6 mg/dL (8.5-10.1) 8.2 mg/dL (8.5-10.1) Glucose (Fingerstick) 156 mg/dL (70-99) 231 mg/dL (70-99) Triglycerides Level 288 mg/dL (0-150) Cholesterol Level 195 mg/dL (0-200) LDL Cholesterol, Calculated 114 mg/dL (0-100) VLDL Cholesterol, Calculated 58 mg/dL (0-40) Non-HDL Cholesterol Calculated 172 mg/dL (0-129) HDL Cholesterol 23 mg/dL (40-60) Cholesterol/HDL Ratio 8.5 Test 03/30/18 08:04 03/30/18 11:22 Glucose (Fingerstick) 204 mg/dL (70-99) 242 mg/dL (70-99) Laboratory Tests Test 03/29/18 12:40 03/29/18 17:36 03/29/18 20:57 03/30/18 04:15 White Blood Count 10.5 x10^3/uL (4.0-11.0) 9.8 x10^3/uL (4.0-11.0) Red Blood Count 3.98 x10^6/uL (3.50-5.40) 3.78 x10^6/uL (3.50-5.40) Hemoglobin 10.2 g/dL (12.0-15.5) 9.6 g/dL (12.0-15.5) Hematocrit 30.6 % (36.0-47.0) 30.3 % (36.0-47.0) Mean Corpuscular Volume 77 fL (79-100) 80 fL (79-100) Mean Corpuscular Hemoglobin 26 pg (25-35) 25 pg (25-35) Mean Corpuscular Hemoglobin Concent 33 g/dL (31-37) 32 g/dL (31-37) Red Cell Distribution Width 18.2 % (11.5-14.5) 18.0 % (11.5-14.5) Platelet Count 245 x10^3/uL (140-400) 199 x10^3/uL (140-400) Neutrophils (%) (Auto) 72 % (31-73) 73 % (31-73) Lymphocytes (%) (Auto) 18 % (24-48) 17 % (24-48) Monocytes (%) (Auto) 7 % (0-9) 8 % (0-9) Eosinophils (%) (Auto) 1 % (0-3) 2 % (0-3) Basophils (%) (Auto) 1 % (0-3) 1 % (0-3) Neutrophils # (Auto) 7.6 x10^3uL (1.8-7.7) 7.1 x10^3uL (1.8-7.7) Lymphocytes # (Auto) 1.9 x10^3/uL (1.0-4.8) 1.6 x10^3/uL (1.0-4.8) Monocytes # (Auto) 0.7 x10^3/uL (0.0-1.1) 0.7 x10^3/uL (0.0-1.1) Eosinophils # (Auto) 0.2 x10^3/uL (0.0-0.7) 0.2 x10^3/uL (0.0-0.7) Basophils # (Auto) 0.1 x10^3/uL (0.0-0.2) 0.1 x10^3/uL (0.0-0.2) Segmented Neutrophils % 64 % (35-66) Band Neutrophils % 4 % (0-9) Lymphocytes % 20 % (24-48) Monocytes % 6 % (0-10) Eosinophils % 2 % (0-5) Metamyelocytes % 3 % (0-0) Myelocytes % 1 % (0-0) Platelet Estimate Adequate (ADEQUATE) Giant Platelets Occ Anisocytosis Slight Sodium Level 142 mmol/L (136-145) 142 mmol/L (136-145) Potassium Level 3.4 mmol/L (3.5-5.1) 3.6 mmol/L (3.5-5.1) Chloride Level 104 mmol/L (98-107) 105 mmol/L (98-107) Carbon Dioxide Level 30 mmol/L (21-32) 24 mmol/L (21-32) Anion Gap 8 (6-14) 13 (6-14) Blood Urea Nitrogen 23 mg/dL (7-20) 19 mg/dL (7-20) Creatinine 0.7 mg/dL (0.6-1.0) 0.8 mg/dL (0.6-1.0) Estimated GFR (Cockcroft-Gault) 89.7 76.9 Glucose Level 172 mg/dL (70-99) 201 mg/dL (70-99) Calcium Level 8.6 mg/dL (8.5-10.1) 8.2 mg/dL (8.5-10.1) Glucose (Fingerstick) 156 mg/dL (70-99) 231 mg/dL (70-99) Triglycerides Level 288 mg/dL (0-150) Cholesterol Level 195 mg/dL (0-200) LDL Cholesterol, Calculated 114 mg/dL (0-100) VLDL Cholesterol, Calculated 58 mg/dL (0-40) Non-HDL Cholesterol Calculated 172 mg/dL (0-129) HDL Cholesterol 23 mg/dL (40-60) Cholesterol/HDL Ratio 8.5 Test 03/30/18 08:04 03/30/18 11:22 Glucose (Fingerstick) 204 mg/dL (70-99) 242 mg/dL (70-99) Medications Current Medications Acetaminophen (Tylenol) 650 mg PRN Q6HRS PRN PO FEVER; Start 03/29/18 at 12:00 Ondansetron HCl (Zofran) 4 mg PRN Q6HRS PRN IV NAUSEA/VOMITING; Start 03/29/18 at 12:00 Morphine Sulfate (Morphine Sulfate) 2 mg PRN Q2HR PRN IV MODERATE TO SEVERE PAIN; Start 03/29/18 at 12:00 Tramadol HCl (Ultram) 50 mg PRN Q6HRS PRN PO MILD TO MODERATE PAIN; Start 03/29 at 12:00 Docusate Sodium (Colace) 100 mg PRN DAILY PRN PO CONSTIPATION; Start 03/29/18 at 12:00 Clonidine HCl (Catapres Tts-1) 1 patch We TD ; Start 04/04/18 at 09:00 Ferrous Sulfate (Feosol) 325 mg DAILY08 PO ; Start 03/30/18 at 08:00 Losartan Potassium (Cozaar) 50 mg DAILY PO ; Start 03/30/18 at 09:00 Lidocaine (Lidoderm) 1 patch DAILY TD Last administered on 03/29/18at 15:50; Start 03/29/18 at 15:00 Vancomycin HCl (Vanco Per Pharmacy) 1 each PRN DAILY PRN MC SEE COMMENTS; Start 03/29/18 at 13:00; Stop 03/29/18 at 14:23; Status DC Vancomycin HCl 2 gm/Sodium Chloride 500 ml @ 250 mls/hr Q12H IV ; Start at 13:00; Stop 03/29/18 at 14:23; Status DC Piperacillin Sod/ Tazobactam Sod 4.5 gm/Sodium Chloride 100 ml @ 200 mls/hr Q6HRS IV Last administered on 03/30/18at 05:09; Start 03/29/18 at 15:00 Piperacillin Sod/ Tazobactam Sod (Zosyn Per Pharmacy) 1 each PRN DAILY PRN MC SEE COMMENTS; Start 03/29/18 at 13:00 Apixaban (Eliquis) 10 mg BID PO Last administered on 03/29/18at 21:35; Start at 21:00 Insulin Human Lispro (HumaLOG) 0-9 UNITS TIDWMEALS SQ ; Start 03/29/18 at 17:00 Dextrose (Dextrose 50%-Water Syringe) 12.5 gm PRN Q15MIN PRN IV SEE COMMENTS; Start 03/29/18 at 13:00 Sodium Chloride 1,000 ml @ 75 mls/hr [id number] IV Last administered on at 15:44; Start 03/29/18 at 13:00 Albuterol Sulfate (Ventolin Neb Soln) 2.5 mg PRN Q4HRS PRN NEB SHORTNESS OF BREATH; Start 03/29/18 at 13:00 Labetalol HCl (Normodyne Iv Push) 20 mg PRN Q2HR PRN IVP HYPERTENSION, SEE COMMENTS; Start 03/29/18 at 13:00 Atorvastatin Calcium (Lipitor) 40 mg QHS PO ; Start 03/30/18 at 21:00 Active Scripts Active Reported Benadryl (Diphenhydramine Hcl) 25 Mg Capsule 50 Mg PO HS Clonidine Tts-1 (Clonidine) 1 Each Patch.tdwk 1 Patch TD WEEKLY Ondansetron Odt (Ondansetron) 4 Mg Tab.rapdis 4 Mg PO BID PRN Losartan Potassium 50 Mg Tablet 50 Mg PO DAILY Lidocaine 1 Each Adh..patch 1 Each TP DAILY Culturelle (Lactobacillus Rhamnosus Gg) 1 Each Cap.sprink 1 Each PO BID Culturelle Capsule (L. Rhamnosus GG/Inulin) 1 Each Cap.sprink 1 Each PO Ferrous Sulfate 325 Mg Tablet 1 Tab PO DAILY Vitals/I & O Vital Sign - Last 24 Hours 03/29/18 03/29/18 03/29/18 03/29/18 15:00 19:00 20:00 23:00 Temp 98.5 97.9 98.1 98.5 97.9 98.1 Pulse 80 83 85 Resp 18 18 18 B/P (MAP) 165/78 (107) 171/83 (112) 170/83 (112) Pulse Ox 96 94 94 O2 Delivery Room Air Room Air Room Air Room Air 03/30/18 03/30/18 03:00 07:00 Temp 98.4 96.6 98.4 96.6 Pulse 80 77 Resp 16 18 B/P (MAP) 149/74 (99) 160/50 (86) Pulse Ox 93 93 O2 Delivery Room Air Room Air Intake and Output 03/29/18 03/29/18 03/30/18 15:00 23:00 07:00 Intake Total 720 ml 480 ml Output Total 2 ml Balance 718 ml 480 ml RADHA MIRANDA MD Mar 30, 2018 12:33
--- NOTE | 2018-03-30 13:11 | PDOC ---
Infectious Disease Note Subjective: Subjective Pt says feels ok lethargic no pain no headache ROS: ROS Negative except for above. Vital Signs: Vital Signs Vital Signs Date Time Temp Pulse Resp B/P (MAP) Pulse Ox O2 Delivery O2 Flow Rate FiO2 03/30/18 12:32 77 160/50 03/30/18 11:00 98.2 16 94 Room Air 98.2 Physical Exam: PHYSICAL EXAM GENERAL: Alert, awake, somewhat confused female in no acute distress, cooperative, answers a few questions in yes and no. HEENT: Normocephalic, atraumatic, anicteric. No thrush. NECK: Supple. LUNGS: Clear bilaterally. HEART: S1, S2. ABDOMEN: Soft, obese. Bowel sounds present. Ventral hernia reducible. No tenderness. EXTREMITIES: No cyanosis, no clubbing. NEUROLOGIC: Alert, awake. Normal speech. PSYCHIATRIC: Normal affect. Cooperative. DERMATOLOGIC: No generalized rash. Medications: Inpatient Meds: Current Medications Medications (Trade) Dose Ordered Sig/Emmy Start Time Stop Time Status Last Admin Dose Admin Acetaminophen (Tylenol) 650 mg PRN Q6HRS PRN 03/29/18 12:00 Albuterol Sulfate (Ventolin Neb Soln) 2.5 mg PRN Q4HRS PRN 03/29/18 13:00 Apixaban (Eliquis) 10 mg BID 03/29/18 21:00 03/30/18 12:37 DC 03/29/18 21:35 10 MG Aspirin (Ecotrin) 325 mg [id number] 03/30/18 13:00 Atorvastatin Calcium (Lipitor) 40 mg QHS 03/30/18 21:00 Clonidine HCl (Catapres Tts-1) 1 patch We 04/04/18 09:00 Dextrose (Dextrose 50%-Water Syringe) 12.5 gm PRN Q15MIN PRN 03/29/18 13:00 Docusate Sodium (Colace) 100 mg PRN DAILY PRN 03/29/18 12:00 Ferrous Sulfate (Feosol) 325 mg DAILY08 03/30/18 08:00 03/30/18 12:32 325 MG Insulin Human Lispro (HumaLOG) 0-9 UNITS TIDWMEALS 03/29/18 17:00 03/30/18 12:39 5 UNITS Labetalol HCl (Normodyne Iv Push) 20 mg PRN Q2HR PRN 03/29/18 13:00 Lidocaine (Lidoderm) 1 patch DAILY 03/29/18 15:00 03/30/18 12:33 1 PATCH Losartan Potassium (Cozaar) 50 mg DAILY 03/30/18 09:00 03/30/18 12:32 50 MG Morphine Sulfate (Morphine Sulfate) 2 mg PRN Q2HR PRN 03/29/18 12:00 Ondansetron HCl (Zofran) 4 mg PRN Q6HRS PRN 03/29/18 12:00 Piperacillin Sod/ Tazobactam Sod (Zosyn Per Pharmacy) 1 each PRN DAILY PRN 03/29/18 13:00 03/30/18 12:36 DC Piperacillin Sod/ Tazobactam Sod 4.5 gm/Sodium Chloride 100 ml @ 200 mls/hr Q6HRS 03/29/18 15:00 03/30/18 12:35 DC 03/30/18 05:09 200 MLS/HR Sodium Chloride 1,000 ml @ 75 mls/hr [id number] 03/29/18 13:00 03/29/18 15:44 75 MLS/HR Tramadol HCl (Ultram) 50 mg PRN Q6HRS PRN 03/29/18 12:00 Vancomycin HCl (Vanco Per Pharmacy) 1 each PRN DAILY PRN 03/29/18 13:00 03/29/18 14:23 DC Vancomycin HCl 2 gm/Sodium Chloride 500 ml @ 250 mls/hr Q12H 03/29/18 13:00 03/29/18 14:23 DC Labs: Lab Laboratory Tests Test 03/29/18 17:36 03/29/18 20:57 03/30/18 04:15 03/30/18 08:04 Glucose (Fingerstick) 156 mg/dL (70-99) 231 mg/dL (70-99) 204 mg/dL (70-99) White Blood Count 9.8 x10^3/uL (4.0-11.0) Red Blood Count 3.78 x10^6/uL (3.50-5.40) Hemoglobin 9.6 g/dL (12.0-15.5) Hematocrit 30.3 % (36.0-47.0) Mean Corpuscular Volume 80 fL (79-100) Mean Corpuscular Hemoglobin 25 pg (25-35) Mean Corpuscular Hemoglobin Concent 32 g/dL (31-37) Red Cell Distribution Width 18.0 % (11.5-14.5) Platelet Count 199 x10^3/uL (140-400) Neutrophils (%) (Auto) 73 % (31-73) Lymphocytes (%) (Auto) 17 % (24-48) Monocytes (%) (Auto) 8 % (0-9) Eosinophils (%) (Auto) 2 % (0-3) Basophils (%) (Auto) 1 % (0-3) Neutrophils # (Auto) 7.1 x10^3uL (1.8-7.7) Lymphocytes # (Auto) 1.6 x10^3/uL (1.0-4.8) Monocytes # (Auto) 0.7 x10^3/uL (0.0-1.1) Eosinophils # (Auto) 0.2 x10^3/uL (0.0-0.7) Basophils # (Auto) 0.1 x10^3/uL (0.0-0.2) Sodium Level 142 mmol/L (136-145) Potassium Level 3.6 mmol/L (3.5-5.1) Chloride Level 105 mmol/L (98-107) Carbon Dioxide Level 24 mmol/L (21-32) Anion Gap 13 (6-14) Blood Urea Nitrogen 19 mg/dL (7-20) Creatinine 0.8 mg/dL (0.6-1.0) Estimated GFR (Cockcroft-Gault) 76.9 Glucose Level 201 mg/dL (70-99) Calcium Level 8.2 mg/dL (8.5-10.1) Triglycerides Level 288 mg/dL (0-150) Cholesterol Level 195 mg/dL (0-200) LDL Cholesterol, Calculated 114 mg/dL (0-100) VLDL Cholesterol, Calculated 58 mg/dL (0-40) Non-HDL Cholesterol Calculated 172 mg/dL (0-129) HDL Cholesterol 23 mg/dL (40-60) Cholesterol/HDL Ratio 8.5 Test 03/30/18 11:22 Glucose (Fingerstick) 242 mg/dL (70-99) Objective: Assessment: 1. Altered mental status, likely from diabetic ketoacidosis, improving. 2. Diabetic ketoacidosis, resolved. 3. Bilateral lower pulmonary embolism. 4. Staphylococcus epidermidis, methicillin-sensitive, Staphylococcus bacteremia, 1 out of 2 bottles on 03/23/2018, likely contaminant. 5. Morbid obesity. 6. Diabetes mellitus 2, uncontrolled. 7. Ventral hernia, stable, reducible 8. Obstructive sleep apnea. 9. Generalized weakness. 10. Rhabdomyolysis. 11. History of urinary tract infection at outside hospital. I do not have the details on the same. Plan: Plan of Care Continue empiric Zosyn for now. Follow up blood culture results. Continue supportive care. Follow up labs in the a.m. and cultures. SEBASTIAN NAIDU MD Mar 30, 2018 13:11
[2018-03-30 15:00] VITALS: BP 161/50
[2018-03-30] MEDS: ASPIRIN ENTERIC COATED 325 MG TABLET.DR. PO SCH (15:33)
--- NOTE | 2018-03-30 18:25 | PDOC ---
PROGRESS NOTES Assessment Assessment Subacute right frontal WM, oh radiata, BG, insular, and external capsule infracts, embolic etiology. Metabolic encephalopathy. PE. Hyperglycemia, glucose 573. DKA. DM, poorly controlled. HLD. UTI. Lactic acidosis. Old bilateral hemisphere lacunar infarcts. Morbid obesity. RECOMMENDATIONS/PLAN: Continue Eliquis. Lipitor 40 mg HS. Treat medical diseases. Control hyperglycemia. OT/PT. Weight reduction. Carotid A US + Doppler: No high grade stenosis. Echo + Bubble study: Unremarkable. HISTORY OF THE PRESENT ILLNESS: 47-y-old patient with above medical diseases fell over the bed and was unable to get up. She was on the floor for about 5 hours until her sister went to her place to check on her. She was brought to the ER of [facility] by EMS, and was eventually transferred to [facility]. Her glucose level was 473. She had confusional episodes, so neurology was requested for consultation. PAST MEDICAL HISTORY: Diabetes, noncompliance. Stroke. Morbid obesity. DKA at [facility], hypokalemia, hyponatremia, elevated CK, possible UTI , mental status changes. PAST SURGICAL HISTORY: Hernia repair. ALLERGY: Reviewed. MEDICATIONS: Refer to [facility] FAMILY HISTORY: Unknown. SOCIAL HISTORY: Lives alone. Denies current smoking, drinking, and illicit drug use. REVIEW OF SYSTEMS: Constitutional: Morbid obesity. Head: No traumatic brain or head injury. Skin: No edema, or rash. Ear: No infection. Eyes: No vision loss or color blindness. Nose: No bleeding or purulent discharges. Hearing: No hearing decrease. Neck: No injury. Breast: No history of cancer, masses,or discharges. Cardiac: No MA, arrhythmia. Pulmonary: No COPD. GI: No GI ulcer, GI bleeding. Urinary/genital: UTI. Endocrinologic: Diabetes Mellitus, morbid obesity. Skeletomuscular: No muscular atrophy, deformity. Neurological: see HP. Psychiatric: Denies drug use/abuse. Otherwise, not [id number] review of systems. PHYSICAL EXAMINATION: General appearance is in subacute distress. HEENT: Normocephalic and nontraumatic. Eyes, nose, ears, and throat are unremarkable. Neck is supple. No lymphadenopathy. No crepitus. Cardiovascular: S1, S2, regular rate and rhythm. Pulmonary: Clear to auscultation bilaterally. Abdomen: Bowel sounds are positive. Extremities: No rash, lesions, or edema. No restriction of range of motion NEUROLOGICAL EXAMINATION: Awake. Not oriented to time, but knew place and person. PERRL. EOMI. CN: no focal findings. Muscle tone: decreased. Muscle strength: 4+ UE, 3- LE DTR: 0-1 due to obesity. Plantar reflex: Flexor response bilaterally Gait: Not able to walk. Sensory exam: no acute abnormal findings. No cerebellar signs elicited. F-T-N test fine. Objective Objective Vital Signs Date Time Temp Pulse Resp B/P (MAP) Pulse Ox O2 Delivery O2 Flow Rate FiO2 03/30/18 15:00 97.1 91 18 161/50 (87) 93 Room Air 97.1 Intake and Output 03/30/18 07:00 Intake Total 1200 ml Output Total 2 ml Balance 1198 ml Intake Oral 1200 ml Output Urine Total 2 ml # Voids 4 Vitals Signs Vitals VS - Last 72 Hours, by Label Date Time Temp Pulse Resp B/P (MAP) Pulse Ox O2 Delivery O2 Flow Rate FiO2 03/30/18 15:00 97.1 91 18 161/50 (87) 93 Room Air 97.1 03/30/18 12:32 77 160/50 03/30/18 11:00 98.2 90 16 133/86 (102) 94 Room Air 98.2 03/30/18 08:00 Room Air 03/30/18 07:00 96.6 77 18 160/50 (86) 93 Room Air 96.6 03/30/18 03:00 98.4 80 16 149/74 (99) 93 Room Air 98.4 03/29/18 23:00 98.1 85 18 170/83 (112) 94 Room Air 98.1 03/29/18 20:00 Room Air 03/29/18 19:00 97.9 83 18 171/83 (112) 94 Room Air 97.9 03/29/18 15:00 98.5 80 18 165/78 (107) 96 Room Air 98.5 03/29/18 12:00 Room Air 03/29/18 11:10 96.6 61 18 153/59 (90) 96 Room Air 96.6 Laboratory Laboratory Laboratory Tests Test 03/29/18 20:57 03/30/18 04:15 03/30/18 08:04 03/30/18 11:22 Glucose (Fingerstick) 231 mg/dL (70-99) 204 mg/dL (70-99) 242 mg/dL (70-99) White Blood Count 9.8 x10^3/uL (4.0-11.0) Red Blood Count 3.78 x10^6/uL (3.50-5.40) Hemoglobin 9.6 g/dL (12.0-15.5) Hematocrit 30.3 % (36.0-47.0) Mean Corpuscular Volume 80 fL (79-100) Mean Corpuscular Hemoglobin 25 pg (25-35) Mean Corpuscular Hemoglobin Concent 32 g/dL (31-37) Red Cell Distribution Width 18.0 % (11.5-14.5) Platelet Count 199 x10^3/uL (140-400) Neutrophils (%) (Auto) 73 % (31-73) Lymphocytes (%) (Auto) 17 % (24-48) Monocytes (%) (Auto) 8 % (0-9) Eosinophils (%) (Auto) 2 % (0-3) Basophils (%) (Auto) 1 % (0-3) Neutrophils # (Auto) 7.1 x10^3uL (1.8-7.7) Lymphocytes # (Auto) 1.6 x10^3/uL (1.0-4.8) Monocytes # (Auto) 0.7 x10^3/uL (0.0-1.1) Eosinophils # (Auto) 0.2 x10^3/uL (0.0-0.7) Basophils # (Auto) 0.1 x10^3/uL (0.0-0.2) Sodium Level 142 mmol/L (136-145) Potassium Level 3.6 mmol/L (3.5-5.1) Chloride Level 105 mmol/L (98-107) Carbon Dioxide Level 24 mmol/L (21-32) Anion Gap 13 (6-14) Blood Urea Nitrogen 19 mg/dL (7-20) Creatinine 0.8 mg/dL (0.6-1.0) Estimated GFR (Cockcroft-Gault) 76.9 Glucose Level 201 mg/dL (70-99) Calcium Level 8.2 mg/dL (8.5-10.1) Triglycerides Level 288 mg/dL (0-150) Cholesterol Level 195 mg/dL (0-200) LDL Cholesterol, Calculated 114 mg/dL (0-100) VLDL Cholesterol, Calculated 58 mg/dL (0-40) Non-HDL Cholesterol Calculated 172 mg/dL (0-129) HDL Cholesterol 23 mg/dL (40-60) Cholesterol/HDL Ratio 8.5 Test 03/30/18 16:48 Glucose (Fingerstick) 152 mg/dL (70-99) Microbiology 03/29/18 Blood Culture - Preliminary, Resulted NO GROWTH AFTER 1 DAY Medication Medications Current Medications Apixaban (Eliquis) 10 mg BID PO Last administered on 03/29/18at 21:35; Start at 21:00; Stop 03/30/18 at 12:37; Status DC Aspirin (Ecotrin) 325 mg DAILYWBKFT PO Last administered on 03/30/18at 15:33; Start 03/30/18 at 13:00 Atorvastatin Calcium (Lipitor) 40 mg QHS PO ; Start 03/30/18 at 21:00 Clonidine HCl (Catapres Tts-1) 1 patch We TD ; Start 04/04/18 at 09:00 Ferrous Sulfate (Feosol) 325 mg DAILY08 PO Last administered on 03/30/18at 12:32 ; Start 03/30/18 at 08:00 Losartan Potassium (Cozaar) 50 mg DAILY PO Last administered on 03/30/18at 12:32 ; Start 03/30/18 at 09:00 Comment Review of Relevant I have reviewed the following items rex (where applicable) has been applied. GOVIND DUMONT MD Mar 30, 2018 18:25
[2018-03-30 19:00] VITALS: BP 186/80
[2018-03-30] MEDS: ATORVASTATIN CALCIUM 40 MG TABLET. PO SCH (21:05)
[2018-03-30 23:00] VITALS: BP 161/78
[2018-03-31 03:00] VITALS: BP 158/70
[2018-03-31] MEDS: IV NORMAL SALINE 1000ML BAG 1,000 ML IV SCH ×2 (04:38→16:43)
[2018-03-31 07:00] VITALS: BP 184/74
[2018-03-31] MEDS: ASPIRIN ENTERIC COATED 325 MG TABLET.DR. PO SCH (08:28)
[2018-03-31] MEDS: FERROUS SULFATE 325 MG TABLET. PO SCH (08:28)
[2018-03-31] MEDS: INSULIN LISPRO 300 UNITS/3 ML INSULN.PEN. SQ SCH ×3 (08:30→16:45)
[2018-03-31] MEDS: LIDOCAINE (700MG/PATCH) PATCH. TD SCH (08:57)
[2018-03-31] MEDS: LOSARTAN POTASSIUM 50 MG TABLET. PO SCH (08:57)
--- NOTE | 2018-03-31 09:02 | PDOC ---
Infectious Disease Note Subjective: Subjective Pt without complaints ROS: ROS Negative except for above. Vital Signs: Vital Signs Vital Signs Date Time Temp Pulse Resp B/P (MAP) Pulse Ox O2 Delivery O2 Flow Rate FiO2 03/31/18 08:57 70 184/74 03/31/18 07:00 99.1 18 96 High Flow Nasal Cannula 2.0 99.1 Physical Exam: PHYSICAL EXAM GENERAL: Alert, awake, somewhat confused female in no acute distress, cooperative, answers a few questions in yes and no. HEENT: Normocephalic, atraumatic, anicteric. No thrush. NECK: Supple. LUNGS: Clear bilaterally. HEART: S1, S2. ABDOMEN: Soft, obese. Bowel sounds present. Ventral hernia reducible. No tenderness. EXTREMITIES: No cyanosis, no clubbing. NEUROLOGIC: Alert, awake. Normal speech. PSYCHIATRIC: Normal affect. Cooperative. DERMATOLOGIC: No generalized rash. Medications: Inpatient Meds: Current Medications Medications (Trade) Dose Ordered Sig/Emmy Start Time Stop Time Status Last Admin Dose Admin Acetaminophen (Tylenol) 650 mg PRN Q6HRS PRN 03/29/18 12:00 Albuterol Sulfate (Ventolin Neb Soln) 2.5 mg PRN Q4HRS PRN 03/29/18 13:00 Apixaban (Eliquis) 10 mg BID 03/31/18 09:00 UNV Aspirin (Ecotrin) 325 mg DAILYWBKFT 03/30/18 13:00 03/31/18 08:28 325 MG Atorvastatin Calcium (Lipitor) 40 mg QHS 03/30/18 21:00 03/30/18 21:05 40 MG Clonidine HCl (Catapres Tts-1) 1 patch We 04/04/18 09:00 Dextrose (Dextrose 50%-Water Syringe) 12.5 gm PRN Q15MIN PRN 03/29/18 13:00 Docusate Sodium (Colace) 100 mg PRN DAILY PRN 03/29/18 12:00 Ferrous Sulfate (Feosol) 325 mg DAILY08 03/30/18 08:00 03/31/18 08:28 325 MG Insulin Human Lispro (HumaLOG) 0-9 UNITS TIDWMEALS 03/29/18 17:00 03/31/18 08:30 4 UNITS Labetalol HCl (Normodyne Iv Push) 20 mg PRN Q2HR PRN 03/29/18 13:00 03/30/18 21:05 20 MG Lidocaine (Lidoderm) 1 patch DAILY 03/29/18 15:00 03/31/18 08:57 1 PATCH Losartan Potassium (Cozaar) 50 mg DAILY 03/30/18 09:00 03/31/18 08:57 50 MG Morphine Sulfate (Morphine Sulfate) 2 mg PRN Q2HR PRN 03/29/18 12:00 Ondansetron HCl (Zofran) 4 mg PRN Q6HRS PRN 03/29/18 12:00 Piperacillin Sod/ Tazobactam Sod (Zosyn Per Pharmacy) 1 each PRN DAILY PRN 03/29/18 13:00 03/30/18 12:36 DC Piperacillin Sod/ Tazobactam Sod 4.5 gm/Sodium Chloride 100 ml @ 200 mls/hr Q6HRS 03/29/18 15:00 03/30/18 12:35 DC 03/30/18 05:09 200 MLS/HR Sodium Chloride 1,000 ml @ 75 mls/hr [id number] 03/29/18 13:00 03/31/18 04:38 75 MLS/HR Tramadol HCl (Ultram) 50 mg PRN Q6HRS PRN 03/29/18 12:00 Vancomycin HCl (Vanco Per Pharmacy) 1 each PRN DAILY PRN 03/29/18 13:00 03/29/18 14:23 DC Vancomycin HCl 2 gm/Sodium Chloride 500 ml @ 250 mls/hr Q12H 03/29/18 13:00 03/29/18 14:23 DC Labs: Lab Laboratory Tests Test 03/30/18 11:22 03/30/18 16:48 03/30/18 20:32 03/31/18 07:35 Glucose (Fingerstick) 242 mg/dL (70-99) 152 mg/dL (70-99) 193 mg/dL (70-99) 167 mg/dL (70-99) Objective: Assessment: 1. Altered mental status, likely from diabetic ketoacidosis, resolved 2. Diabetic ketoacidosis, resolved. 3. Bilateral lower pulmonary embolism. 4. Staphylococcus epidermidis, methicillin-sensitive, Staphylococcus bacteremia, 1 out of 2 bottles on 03/23/2018, likely contaminant. 5. Morbid obesity. 6. Diabetes mellitus 2, uncontrolled. 7. Ventral hernia, stable, reducible 8. Obstructive sleep apnea. 9. Generalized weakness. 10. Rhabdomyolysis. 11. History of urinary tract infection at outside hospital. I do not have the details on the same. Plan: Plan of Care monitor off zosyn Continue supportive care. SEBASTIAN NAIDU MD Mar 31, 2018 09:02
[2018-03-31] MEDS: APIXABAN 5 MG TABLET. PO SCH ×2 (09:33→20:48)
--- NOTE | 2018-03-31 10:03 | PDOC ---
PROGRESS NOTES Chief Complaint Chief Complaint Subacute right frontal stroke morbid Obesity, BMI 52 Pulmonary embolism Left-sided weakness, CVA syndrome, large abd hernia, chronic SIRS, was treated as sepsis syndrome, will wean off abx, no source found DM2, with ketoacidosis on admit, History of Present Illness History of Present Illness left sided hemiplegia, improving subacute stroke on MRI, mult areas noted on neuro noted Plan: Echo, start aspirin if not yet on aspirin Lipid panel PT OT - pt improving, but cannot transfer without assit, Vitals Vitals Vital Signs Date Time Temp Pulse Resp B/P (MAP) Pulse Ox O2 Delivery O2 Flow Rate FiO2 03/31/18 08:57 70 184/74 03/31/18 07:00 99.1 18 96 High Flow Nasal Cannula 2.0 99.1 Physical Exam Physical Exam GENERAL: Alert, awake, somewhat confused female in no acute distress, cooperative, answers a few questions in yes and no. HEENT: Normocephalic, atraumatic, anicteric. No thrush. NECK: Supple. LUNGS: Clear bilaterally. HEART: S1, S2. ABDOMEN: Soft, obese. Bowel sounds present. Ventral hernia reducible. No tenderness. EXTREMITIES: No cyanosis, no clubbing. NEUROLOGIC: Alert, awake. Normal speech. PSYCHIATRIC: Normal affect. Cooperative. DERMATOLOGIC: No generalized rash. General: Oriented X3, Cooperative, No acute distress, Other (no dysarthria appreciable) Heart: Regular rate, Normal S1, Normal S2 Lungs: Clear Abdomen: Normal bowel sounds, Soft Extremities: No clubbing, No cyanosis Skin: No rashes, No breakdown Labs LABS Laboratory Tests Test 03/30/18 11:22 03/30/18 16:48 03/30/18 20:32 03/31/18 07:35 Glucose (Fingerstick) 242 mg/dL (70-99) 152 mg/dL (70-99) 193 mg/dL (70-99) 167 mg/dL (70-99) Review of Systems Review of Systems weakness, no n.v/d slept OK will need some rehab support, Comment Review of Relevant I have reviewed the following items rex (where applicable) has been applied. Labs Laboratory Tests Test 03/29/18 12:40 03/29/18 17:36 03/29/18 20:57 9/21/18 04:15 White Blood Count 10.5 x10^3/uL (4.0-11.0) 9.8 x10^3/uL (4.0-11.0) Red Blood Count 3.98 x10^6/uL (3.50-5.40) 3.78 x10^6/uL (3.50-5.40) Hemoglobin 10.2 g/dL (12.0-15.5) 9.6 g/dL (12.0-15.5) Hematocrit 30.6 % (36.0-47.0) 30.3 % (36.0-47.0) Mean Corpuscular Volume 77 fL (79-100) 80 fL (79-100) Mean Corpuscular Hemoglobin 26 pg (25-35) 25 pg (25-35) Mean Corpuscular Hemoglobin Concent 33 g/dL (31-37) 32 g/dL (31-37) Red Cell Distribution Width 18.2 % (11.5-14.5) 18.0 % (11.5-14.5) Platelet Count 245 x10^3/uL (140-400) 199 x10^3/uL (140-400) Neutrophils (%) (Auto) 72 % (31-73) 73 % (31-73) Lymphocytes (%) (Auto) 18 % (24-48) 17 % (24-48) Monocytes (%) (Auto) 7 % (0-9) 8 % (0-9) Eosinophils (%) (Auto) 1 % (0-3) 2 % (0-3) Basophils (%) (Auto) 1 % (0-3) 1 % (0-3) Neutrophils # (Auto) 7.6 x10^3uL (1.8-7.7) 7.1 x10^3uL (1.8-7.7) Lymphocytes # (Auto) 1.9 x10^3/uL (1.0-4.8) 1.6 x10^3/uL (1.0-4.8) Monocytes # (Auto) 0.7 x10^3/uL (0.0-1.1) 0.7 x10^3/uL (0.0-1.1) Eosinophils # (Auto) 0.2 x10^3/uL (0.0-0.7) 0.2 x10^3/uL (0.0-0.7) Basophils # (Auto) 0.1 x10^3/uL (0.0-0.2) 0.1 x10^3/uL (0.0-0.2) Segmented Neutrophils % 64 % (35-66) Band Neutrophils % 4 % (0-9) Lymphocytes % 20 % (24-48) Monocytes % 6 % (0-10) Eosinophils % 2 % (0-5) Metamyelocytes % 3 % (0-0) Myelocytes % 1 % (0-0) Platelet Estimate Adequate (ADEQUATE) Giant Platelets Occ Anisocytosis Slight Sodium Level 142 mmol/L (136-145) 142 mmol/L (136-145) Potassium Level 3.4 mmol/L (3.5-5.1) 3.6 mmol/L (3.5-5.1) Chloride Level 104 mmol/L (98-107) 105 mmol/L (98-107) Carbon Dioxide Level 30 mmol/L (21-32) 24 mmol/L (21-32) Anion Gap 8 (6-14) 13 (6-14) Blood Urea Nitrogen 23 mg/dL (7-20) 19 mg/dL (7-20) Creatinine 0.7 mg/dL (0.6-1.0) 0.8 mg/dL (0.6-1.0) Estimated GFR (Cockcroft-Gault) 89.7 76.9 Glucose Level 172 mg/dL (70-99) 201 mg/dL (70-99) Calcium Level 8.6 mg/dL (8.5-10.1) 8.2 mg/dL (8.5-10.1) Glucose (Fingerstick) 156 mg/dL (70-99) 231 mg/dL (70-99) Triglycerides Level 288 mg/dL (0-150) Cholesterol Level 195 mg/dL (0-200) LDL Cholesterol, Calculated 114 mg/dL (0-100) VLDL Cholesterol, Calculated 58 mg/dL (0-40) Non-HDL Cholesterol Calculated 172 mg/dL (0-129) HDL Cholesterol 23 mg/dL (40-60) Cholesterol/HDL Ratio 8.5 Test 03/30/18 08:04 03/30/18 11:22 03/30/18 16:48 03/30/18 20:32 Glucose (Fingerstick) 204 mg/dL (70-99) 242 mg/dL (70-99) 152 mg/dL (70-99) 193 mg/dL (70-99) Test 03/31/18 07:35 Glucose (Fingerstick) 167 mg/dL (70-99) Laboratory Tests Test 03/30/18 11:22 03/30/18 16:48 03/30/18 20:32 03/31/18 07:35 Glucose (Fingerstick) 242 mg/dL (70-99) 152 mg/dL (70-99) 193 mg/dL (70-99) 167 mg/dL (70-99) Microbiology 03/29/18 Blood Culture - Preliminary, Resulted NO GROWTH AFTER 1 DAY Medications Current Medications Acetaminophen (Tylenol) 650 mg PRN Q6HRS PRN PO FEVER; Start 03/29/18 at 12:00 Ondansetron HCl (Zofran) 4 mg PRN Q6HRS PRN IV NAUSEA/VOMITING; Start 03/29/18 at 12:00 Morphine Sulfate (Morphine Sulfate) 2 mg PRN Q2HR PRN IV MODERATE TO SEVERE PAIN; Start 03/29/18 at 12:00 Tramadol HCl (Ultram) 50 mg PRN Q6HRS PRN PO MILD TO MODERATE PAIN; Start 03/29 at 12:00 Docusate Sodium (Colace) 100 mg PRN DAILY PRN PO CONSTIPATION; Start 03/29/18 at 12:00 Clonidine HCl (Catapres Tts-1) 1 patch We TD ; Start 04/04/18 at 09:00 Ferrous Sulfate (Feosol) 325 mg DAILY08 PO Last administered on 03/31/18at 08:28 ; Start 03/30/18 at 08:00 Losartan Potassium (Cozaar) 50 mg DAILY PO Last administered on 03/31/18at 08:57 ; Start 03/30/18 at 09:00 Lidocaine (Lidoderm) 1 patch DAILY TD Last administered on 03/31/18at 08:57; Start 03/29/18 at 15:00 Vancomycin HCl (Vanco Per Pharmacy) 1 each PRN DAILY PRN MC SEE COMMENTS; Start 03/29/18 at 13:00; Stop 03/29/18 at 14:23; Status DC Vancomycin HCl 2 gm/Sodium Chloride 500 ml @ 250 mls/hr Q12H IV ; Start at 13:00; Stop 03/29/18 at 14:23; Status DC Piperacillin Sod/ Tazobactam Sod 4.5 gm/Sodium Chloride 100 ml @ 200 mls/hr Q6HRS IV Last administered on 03/30/18at 05:09; Start 03/29/18 at 15:00; Stop at 12:35; Status DC Piperacillin Sod/ Tazobactam Sod (Zosyn Per Pharmacy) 1 each PRN DAILY PRN MC SEE COMMENTS; Start 03/29/18 at 13:00; Stop 03/30/18 at 12:36; Status DC Apixaban (Eliquis) 10 mg BID PO Last administered on 03/29/18at 21:35; Start at 21:00; Stop 03/30/18 at 12:37; Status DC Insulin Human Lispro (HumaLOG) 0-9 UNITS TIDWMEALS SQ Last administered on 03/31at 08:30; Start 03/29/18 at 17:00 Dextrose (Dextrose 50%-Water Syringe) 12.5 gm PRN Q15MIN PRN IV SEE COMMENTS; Start 03/29/18 at 13:00 Sodium Chloride 1,000 ml @ 75 mls/hr [id number] IV Last administered on at 04:38; Start 03/29/18 at 13:00 Albuterol Sulfate (Ventolin Neb Soln) 2.5 mg PRN Q4HRS PRN NEB SHORTNESS OF BREATH; Start 03/29/18 at 13:00 Labetalol HCl (Normodyne Iv Push) 20 mg PRN Q2HR PRN IVP HYPERTENSION, SEE COMMENTS Last administered on 03/30/18at 21:05; Start 03/29/18 at 13:00 Atorvastatin Calcium (Lipitor) 40 mg QHS PO Last administered on 03/30/18at 21: 05; Start 03/30/18 at 21:00 Aspirin (Ecotrin) 325 mg DAILYWBKFT PO Last administered on 03/31/18at 08:28; Start 03/30/18 at 13:00 Apixaban (Eliquis) 10 mg BID PO Last administered on 03/31/18at 09:33; Start at 09:00 Amlodipine Besylate (Norvasc) 2.5 mg DAILY PO ; Start 04/01/18 at 09:00; Status UNV Active Scripts Active Reported Benadryl (Diphenhydramine Hcl) 25 Mg Capsule 50 Mg PO HS Clonidine Tts-1 (Clonidine) 1 Each Patch.tdwk 1 Patch TD WEEKLY Ondansetron Odt (Ondansetron) 4 Mg Tab.rapdis 4 Mg PO BID PRN Losartan Potassium 50 Mg Tablet 50 Mg PO DAILY Lidocaine 1 Each Adh..patch 1 Each TP DAILY Culturelle (Lactobacillus Rhamnosus Gg) 1 Each Cap.sprink 1 Each PO BID Culturelle Capsule (L. Rhamnosus GG/Inulin) 1 Each Cap.sprink 1 Each PO Ferrous Sulfate 325 Mg Tablet 1 Tab PO DAILY Vitals/I & O Vital Sign - Last 24 Hours 03/30/18 03/30/18 03/30/18 03/30/18 11:00 12:32 15:00 19:00 Temp 98.2 97.1 97.5 98.2 97.1 97.5 Pulse 90 77 91 77 Resp 16 18 17 B/P (MAP) 133/86 (102) 160/50 161/50 (87) 186/80 (115) Pulse Ox 94 93 93 O2 Delivery Room Air Room Air Room Air 03/30/18 03/30/18 03/30/18 03/31/18 21:00 21:05 23:00 03:00 Temp 97.5 97.1 97.5 97.1 Pulse 77 76 66 Resp 18 17 B/P (MAP) 186/80 161/78 (105) 158/70 (99) Pulse Ox 94 93 O2 Delivery Room Air Room Air Room Air 03/31/18 03/31/18 07:00 08:57 Temp 99.1 99.1 Pulse 70 70 Resp 18 B/P (MAP) 184/74 (110) 184/74 Pulse Ox 96 O2 Delivery High Flow Nasal Cannula O2 Flow Rate 2.0 Intake and Output 03/30/18 03/30/18 03/31/18 15:00 23:00 07:00 Intake Total 300 ml 2580 ml Output Total 25 ml Balance 275 ml 2580 ml TEO RYDER MD Mar 31, 2018 10:03
--- NOTE | 2018-03-31 10:05 | PDOC ---
PULMONARY PROGRESS NOTES Subjective no soa Vitals Vital Signs Date Time Temp Pulse Resp B/P (MAP) Pulse Ox O2 Delivery O2 Flow Rate FiO2 03/31/18 08:57 70 184/74 03/31/18 07:00 99.1 18 96 High Flow Nasal Cannula 2.0 99.1 General: Alert, No acute distress Lungs: Clear Cardiovascular: S1 Abdomen: Soft, Other (obese) Extremities: Other (1+edema) Labs Laboratory Tests Test 03/29/18 12:40 03/29/18 17:36 03/29/18 20:57 03/30/18 04:15 White Blood Count 10.5 x10^3/uL (4.0-11.0) 9.8 x10^3/uL (4.0-11.0) Red Blood Count 3.98 x10^6/uL (3.50-5.40) 3.78 x10^6/uL (3.50-5.40) Hemoglobin 10.2 g/dL (12.0-15.5) 9.6 g/dL (12.0-15.5) Hematocrit 30.6 % (36.0-47.0) 30.3 % (36.0-47.0) Mean Corpuscular Volume 77 fL (79-100) 80 fL (79-100) Mean Corpuscular Hemoglobin 26 pg (25-35) 25 pg (25-35) Mean Corpuscular Hemoglobin Concent 33 g/dL (31-37) 32 g/dL (31-37) Red Cell Distribution Width 18.2 % (11.5-14.5) 18.0 % (11.5-14.5) Platelet Count 245 x10^3/uL (140-400) 199 x10^3/uL (140-400) Neutrophils (%) (Auto) 72 % (31-73) 73 % (31-73) Lymphocytes (%) (Auto) 18 % (24-48) 17 % (24-48) Monocytes (%) (Auto) 7 % (0-9) 8 % (0-9) Eosinophils (%) (Auto) 1 % (0-3) 2 % (0-3) Basophils (%) (Auto) 1 % (0-3) 1 % (0-3) Neutrophils # (Auto) 7.6 x10^3uL (1.8-7.7) 7.1 x10^3uL (1.8-7.7) Lymphocytes # (Auto) 1.9 x10^3/uL (1.0-4.8) 1.6 x10^3/uL (1.0-4.8) Monocytes # (Auto) 0.7 x10^3/uL (0.0-1.1) 0.7 x10^3/uL (0.0-1.1) Eosinophils # (Auto) 0.2 x10^3/uL (0.0-0.7) 0.2 x10^3/uL (0.0-0.7) Basophils # (Auto) 0.1 x10^3/uL (0.0-0.2) 0.1 x10^3/uL (0.0-0.2) Segmented Neutrophils % 64 % (35-66) Band Neutrophils % 4 % (0-9) Lymphocytes % 20 % (24-48) Monocytes % 6 % (0-10) Eosinophils % 2 % (0-5) Metamyelocytes % 3 % (0-0) Myelocytes % 1 % (0-0) Platelet Estimate Adequate (ADEQUATE) Giant Platelets Occ Anisocytosis Slight Sodium Level 142 mmol/L (136-145) 142 mmol/L (136-145) Potassium Level 3.4 mmol/L (3.5-5.1) 3.6 mmol/L (3.5-5.1) Chloride Level 104 mmol/L (98-107) 105 mmol/L (98-107) Carbon Dioxide Level 30 mmol/L (21-32) 24 mmol/L (21-32) Anion Gap 8 (6-14) 13 (6-14) Blood Urea Nitrogen 23 mg/dL (7-20) 19 mg/dL (7-20) Creatinine 0.7 mg/dL (0.6-1.0) 0.8 mg/dL (0.6-1.0) Estimated GFR (Cockcroft-Gault) 89.7 76.9 Glucose Level 172 mg/dL (70-99) 201 mg/dL (70-99) Calcium Level 8.6 mg/dL (8.5-10.1) 8.2 mg/dL (8.5-10.1) Glucose (Fingerstick) 156 mg/dL (70-99) 231 mg/dL (70-99) Triglycerides Level 288 mg/dL (0-150) Cholesterol Level 195 mg/dL (0-200) LDL Cholesterol, Calculated 114 mg/dL (0-100) VLDL Cholesterol, Calculated 58 mg/dL (0-40) Non-HDL Cholesterol Calculated 172 mg/dL (0-129) HDL Cholesterol 23 mg/dL (40-60) Cholesterol/HDL Ratio 8.5 Test 03/30/18 08:04 03/30/18 11:22 03/30/18 16:48 03/30/18 20:32 Glucose (Fingerstick) 204 mg/dL (70-99) 242 mg/dL (70-99) 152 mg/dL (70-99) 193 mg/dL (70-99) Test 03/31/18 07:35 Glucose (Fingerstick) 167 mg/dL (70-99) Laboratory Tests Test 03/30/18 11:22 03/30/18 16:48 03/30/18 20:32 03/31/18 07:35 Glucose (Fingerstick) 242 mg/dL (70-99) 152 mg/dL (70-99) 193 mg/dL (70-99) 167 mg/dL (70-99) Medications Active Scripts Medications Dose Route/Sig Max Daily Dose Days Date Category Benadryl (Diphenhydramine Hcl) 25 Mg Capsule 50 Mg PO HS 03/29/18 Reported Clonidine Tts-1 (Clonidine) 1 Each Patch.tdwk 1 Patch TD WEEKLY 03/29/18 Reported Ondansetron Odt (Ondansetron) 4 Mg Tab.rapdis 4 Mg PO BID PRN 03/29/18 Reported Losartan Potassium 50 Mg Tablet 50 Mg PO DAILY 03/29/18 Reported Lidocaine 1 Each Adh..patch 1 Each TP DAILY 03/29/18 Reported Culturelle (Lactobacillus Rhamnosus Gg) 1 Each Cap.sprink 1 Each PO BID 03/29/18 Reported Culturelle Capsule (L. Rhamnosus GG/Inulin) 1 Each Cap.sprink 1 Each PO 03/29/18 Reported Ferrous Sulfate 325 Mg Tablet 1 Tab PO DAILY 03/29/18 Reported Impression . 1. Acute pulmonary embolism in a patient who is morbidly obese with a BMI of 51.8 and fell off her bed last week. Her morbid obesity and immobilization appeared to be likely risk factors. However, she should be ruled out for hypercoagulable state. Venous Dopplers were negative. The patient should also be ruled out for any intracardiac shunt as she has developed embolic lacunar infarcts. 2. Recent encephalopathy and brain MRI showing recent subacute infarcts as well as several old lacunar infarcts. 3. No significant history of tobacco use. 4. No known malignancy and no known hypercoagulable state. Plan . 1. From a pulmonary standpoint, she is hemodynamically stable and currently on room air. I will continue with Eliquis for a minimum of 3-6 months. 2. hypercoagulable panel. 3. echocardiogram with no intra cardiac shunt. 4. Antibiotics per Infectious Disease. 5. She will have a repeat CT angiogram in 6 weeks. BANDAR BENOIT MD Mar 31, 2018 10:05
[2018-03-31 11:37] VITALS: BP 189/66
[2018-03-31] MEDS: amLODIPine BESYLATE 2.5 MG TABLET PO SCH (11:48)
--- NOTE | 2018-03-31 14:15 | PDOC ---
PROGRESS NOTES Assessment Assessment Subacute right frontal WM, oh radiata, BG, insular, and external capsule infracts, embolic etiology. Metabolic encephalopathy. PE. Hyperglycemia, glucose 573. DKA. DM, poorly controlled. HLD. UTI. Lactic acidosis. Old bilateral hemisphere lacunar infarcts. Morbid obesity. RECOMMENDATIONS/PLAN: Continue Eliquis. Continue Lipitor 40 mg HS. Treat medical diseases. Control hyperglycemia. OT/PT. Weight reduction. Carotid A US + Doppler: No high grade stenosis. Echo + Bubble study: Unremarkable. HISTORY OF THE PRESENT ILLNESS: 47-y-old patient with above medical diseases fell over the bed and was unable to get up. She was on the floor for about 5 hours until her sister went to her place to check on her. She was brought to the ER of [facility] by EMS, and was eventually transferred to [facility]. Her glucose level was 473. She had confusional episodes, so neurology was requested for consultation. PAST MEDICAL HISTORY: Diabetes, noncompliance. Stroke. Morbid obesity. DKA at [facility], hypokalemia, hyponatremia, elevated CK, possible UTI , mental status changes. PAST SURGICAL HISTORY: Hernia repair. ALLERGY: Reviewed. MEDICATIONS: Refer to [facility] FAMILY HISTORY: Unknown. SOCIAL HISTORY: Lives alone. Denies current smoking, drinking, and illicit drug use. REVIEW OF SYSTEMS: Constitutional: Morbid obesity. Head: No traumatic brain or head injury. Skin: No edema, or rash. Ear: No infection. Eyes: No vision loss or color blindness. Nose: No bleeding or purulent discharges. Hearing: No hearing decrease. Neck: No injury. Breast: No history of cancer, masses,or discharges. Cardiac: No CA, arrhythmia. Pulmonary: No COPD. GI: No GI ulcer, GI bleeding. Urinary/genital: UTI. Endocrinologic: Diabetes Mellitus, morbid obesity. Skeletomuscular: No muscular atrophy, deformity. Neurological: see HP. Psychiatric: Denies drug use/abuse. Otherwise, not [id number] review of systems. PHYSICAL EXAMINATION: General appearance is in subacute distress. HEENT: Normocephalic and nontraumatic. Eyes, nose, ears, and throat are unremarkable. Neck is supple. No lymphadenopathy. No crepitus. Cardiovascular: S1, S2, regular rate and rhythm. Pulmonary: Clear to auscultation bilaterally. Abdomen: Bowel sounds are positive. Extremities: No rash, lesions, or edema. No restriction of range of motion NEUROLOGICAL EXAMINATION: Awake. Not oriented to time, but knew place and person. PERRL. EOMI. CN: no focal findings. Muscle tone: decreased. Muscle strength: 4 DTR: 0-1 due to obesity. Plantar reflex: Flexor response bilaterally Gait: Not able to walk. Sensory exam: no acute abnormal findings. No cerebellar signs elicited. F-T-N test fine. Objective Objective Vital Signs Date Time Temp Pulse Resp B/P (MAP) Pulse Ox O2 Delivery O2 Flow Rate FiO2 03/31/18 11:48 68 189/66 03/31/18 11:37 97.7 18 94 Room Air 97.7 03/31/18 07:00 2.0 Intake and Output 03/31/18 07:00 Intake Total 2880 ml Output Total 25 ml Balance 2855 ml Intake Oral 280 ml IV Total 2600 ml Emesis 25 ml # Voids 7 Vitals Signs Vitals VS - Last 72 Hours, by Label Date Time Temp Pulse Resp B/P (MAP) Pulse Ox O2 Delivery O2 Flow Rate FiO2 03/31/18 11:48 68 189/66 03/31/18 11:37 97.7 68 18 189/66 (107) 94 Room Air 97.7 03/31/18 08:57 70 184/74 03/31/18 08:00 Room Air 03/31/18 07:00 99.1 70 18 184/74 (110) 96 High Flow Nasal Cannula 2.0 99.1 03/31/18 03:00 97.1 66 17 158/70 (99) 93 Room Air 97.1 03/30/18 23:00 97.5 76 18 161/78 (105) 94 Room Air 97.5 03/30/18 21:05 77 186/80 03/30/18 21:00 Room Air 03/30/18 19:00 97.5 77 17 186/80 (115) 93 Room Air 97.5 03/30/18 15:00 97.1 91 18 161/50 (87) 93 Room Air 97.1 03/30/18 12:32 77 160/50 03/30/18 11:00 98.2 90 16 133/86 (102) 94 Room Air 98.2 03/30/18 08:00 Room Air 03/30/18 07:00 96.6 77 18 160/50 (86) 93 Room Air 96.6 Laboratory Laboratory Laboratory Tests Test 03/30/18 16:48 03/30/18 20:32 03/31/18 07:35 03/31/18 11:17 Glucose (Fingerstick) 152 mg/dL (70-99) 193 mg/dL (70-99) 167 mg/dL (70-99) 203 mg/dL (70-99) Microbiology 03/29/18 Blood Culture - Preliminary, Resulted NO GROWTH AFTER 2 DAYS Medication Medications Current Medications Amlodipine Besylate (Norvasc) 2.5 mg DAILY PO Last administered on 03/31/18at 11 :48; Start 03/31/18 at 10:00 Apixaban (Eliquis) 10 mg BID PO Last administered on 03/31/18at 09:33; Start at 09:00 Atorvastatin Calcium (Lipitor) 40 mg QHS PO Last administered on 03/30/18at 21: 05; Start 03/30/18 at 21:00 Clonidine HCl (Catapres Tts-1) 1 patch We TD ; Start 04/04/18 at 09:00 Comment Review of Relevant I have reviewed the following items rex (where applicable) has been applied. GOVIND DUMONT MD Mar 31, 2018 14:15
[2018-03-31 15:33] VITALS: BP 174/66
[2018-03-31 19:00] VITALS: BP 169/78
[2018-03-31] MEDS: ATORVASTATIN CALCIUM 40 MG TABLET. PO SCH (20:48)
[2018-03-31 23:00] VITALS: BP 168/82
[2018-04-01] VITALS (7 sets, daily range): BP systolic 171–193; BP diastolic 69–87
[2018-04-01] MEDS: IV NORMAL SALINE 1000ML BAG 1,000 ML IV SCH (05:16)
[2018-04-01] MEDS: INSULIN LISPRO 300 UNITS/3 ML INSULN.PEN. SQ SCH ×3 (07:51→17:07)
[2018-04-01] MEDS: FERROUS SULFATE 325 MG TABLET. PO SCH (07:51)
[2018-04-01] MEDS: ASPIRIN ENTERIC COATED 325 MG TABLET.DR. PO SCH (07:52)
[2018-04-01] MEDS: APIXABAN 5 MG TABLET. PO SCH ×2 (08:17→20:36)
[2018-04-01] MEDS: amLODIPine BESYLATE 2.5 MG TABLET PO SCH (08:18)
[2018-04-01] MEDS: LIDOCAINE (700MG/PATCH) PATCH. TD SCH (08:19)
[2018-04-01] MEDS: LOSARTAN POTASSIUM 50 MG TABLET. PO SCH (08:19)
--- NOTE | 2018-04-01 08:22 | PDOC ---
Infectious Disease Note Subjective: Subjective Pt without complaints appears lethargic denies any f/c/n/v/d/abdo pain or sob ROS: ROS Negative except for above. Vital Signs: Vital Signs Vital Signs Date Time Temp Pulse Resp B/P (MAP) Pulse Ox O2 Delivery O2 Flow Rate FiO2 04/01/18 03:00 98.7 77 18 180/87 (118) 94 98.7 03/31/18 19:15 Room Air 03/31/18 15:33 2.0 Physical Exam: PHYSICAL EXAM GENERAL: Alert, awake, somewhat confused female in no acute distress, cooperative, answers a few questions in yes and no. HEENT: Normocephalic, atraumatic, anicteric. No thrush. NECK: Supple. LUNGS: Clear bilaterally. HEART: S1, S2. ABDOMEN: Soft, obese. Bowel sounds present. Ventral hernia reducible. No tenderness. EXTREMITIES: No cyanosis, no clubbing. NEUROLOGIC: Alert, awake. Normal speech. PSYCHIATRIC: Normal affect. Cooperative. DERMATOLOGIC: No generalized rash. Medications: Inpatient Meds: Current Medications Medications (Trade) Dose Ordered Sig/Emmy Start Time Stop Time Status Last Admin Dose Admin Acetaminophen (Tylenol) 650 mg PRN Q6HRS PRN 03/29/18 12:00 Albuterol Sulfate (Ventolin Neb Soln) 2.5 mg PRN Q4HRS PRN 03/29/18 13:00 Amlodipine Besylate (Norvasc) 2.5 mg DAILY 03/31/18 10:00 03/31/18 11:48 2.5 MG Apixaban (Eliquis) 10 mg BID 03/31/18 09:00 03/31/18 20:48 10 MG Aspirin (Ecotrin) 325 mg DAILYWBKFT 03/30/18 13:00 04/01/18 07:52 325 MG Atorvastatin Calcium (Lipitor) 40 mg QHS 03/30/18 21:00 03/31/18 20:48 40 MG Clonidine HCl (Catapres Tts-1) 1 patch We 04/04/18 09:00 Dextrose (Dextrose 50%-Water Syringe) 12.5 gm PRN Q15MIN PRN 03/29/18 13:00 Docusate Sodium (Colace) 100 mg PRN DAILY PRN 03/29/18 12:00 Ferrous Sulfate (Feosol) 325 mg DAILY08 03/30/18 08:00 04/01/18 07:51 325 MG Insulin Human Lispro (HumaLOG) 0-9 UNITS TIDWMEALS 03/29/18 17:00 04/01/18 07:51 4 UNITS Labetalol HCl (Normodyne Iv Push) 20 mg PRN Q2HR PRN 03/29/18 13:00 03/30/18 21:05 20 MG Lidocaine (Lidoderm) 1 patch DAILY 03/29/18 15:00 03/31/18 08:57 1 PATCH Losartan Potassium (Cozaar) 50 mg DAILY 03/30/18 09:00 03/31/18 08:57 50 MG Morphine Sulfate (Morphine Sulfate) 2 mg PRN Q2HR PRN 03/29/18 12:00 Ondansetron HCl (Zofran) 4 mg PRN Q6HRS PRN 03/29/18 12:00 Piperacillin Sod/ Tazobactam Sod (Zosyn Per Pharmacy) 1 each PRN DAILY PRN 03/29/18 13:00 03/30/18 12:36 DC Piperacillin Sod/ Tazobactam Sod 4.5 gm/Sodium Chloride 100 ml @ 200 mls/hr Q6HRS 03/29/18 15:00 03/30/18 12:35 DC 03/30/18 05:09 200 MLS/HR Sodium Chloride 1,000 ml @ 75 mls/hr [id number] 03/29/18 13:00 04/01/18 05:16 75 MLS/HR Tramadol HCl (Ultram) 50 mg PRN Q6HRS PRN 03/29/18 12:00 Vancomycin HCl (Vanco Per Pharmacy) 1 each PRN DAILY PRN 03/29/18 13:00 03/29/18 14:23 DC Vancomycin HCl 2 gm/Sodium Chloride 500 ml @ 250 mls/hr Q12H 03/29/18 13:00 03/29/18 14:23 DC Labs: Lab Laboratory Tests Test 03/31/18 11:17 03/31/18 16:28 03/31/18 21:11 04/01/18 07:45 Glucose (Fingerstick) 203 mg/dL (70-99) 212 mg/dL (70-99) 216 mg/dL (70-99) 194 mg/dL (70-99) Objective: Assessment: 1. Altered mental status, likely from diabetic ketoacidosis, resolved 2. Diabetic ketoacidosis, resolved. 3. Bilateral lower pulmonary embolism. 4. Staphylococcus epidermidis, methicillin-sensitive, Staphylococcus bacteremia, 1 out of 2 bottles on 03/23/2018, likely contaminant. 5. Morbid obesity. 6. Diabetes mellitus 2, uncontrolled. 7. Ventral hernia, stable, reducible 8. Obstructive sleep apnea. 9. Generalized weakness. 10. Rhabdomyolysis. 11. History of urinary tract infection at outside hospital. I do not have the details on the same. Plan: Plan of Care monitor off zosyn Continue supportive care. SEBASTIAN NAIDU MD Apr 01, 2018 08:22
--- NOTE | 2018-04-01 10:29 | PDOC ---
PULMONARY PROGRESS NOTES Subjective no soa Vitals Vital Signs Date Time Temp Pulse Resp B/P (MAP) Pulse Ox O2 Delivery O2 Flow Rate FiO2 04/01/18 08:19 74 178/78 04/01/18 08:00 Room Air 04/01/18 07:00 97.5 18 91 97.5 03/31/18 15:33 2.0 General: Alert, No acute distress Lungs: Clear Cardiovascular: S1 Abdomen: Soft, Other (obese) Extremities: Other (1+edema) Labs Laboratory Tests Test 03/30/18 11:22 03/30/18 16:48 03/30/18 20:32 03/31/18 07:35 Glucose (Fingerstick) 242 mg/dL (70-99) 152 mg/dL (70-99) 193 mg/dL (70-99) 167 mg/dL (70-99) Test 03/31/18 11:17 03/31/18 16:28 03/31/18 21:11 04/01/18 07:45 Glucose (Fingerstick) 203 mg/dL (70-99) 212 mg/dL (70-99) 216 mg/dL (70-99) 194 mg/dL (70-99) Laboratory Tests Test 03/31/18 11:17 03/31/18 16:28 03/31/18 21:11 04/01/18 07:45 Glucose (Fingerstick) 203 mg/dL (70-99) 212 mg/dL (70-99) 216 mg/dL (70-99) 194 mg/dL (70-99) Medications Active Scripts Medications Dose Route/Sig Max Daily Dose Days Date Category Benadryl (Diphenhydramine Hcl) 25 Mg Capsule 50 Mg PO HS 03/29/18 Reported Clonidine Tts-1 (Clonidine) 1 Each Patch.tdwk 1 Patch TD WEEKLY 03/29/18 Reported Ondansetron Odt (Ondansetron) 4 Mg Tab.rapdis 4 Mg PO BID PRN 03/29/18 Reported Losartan Potassium 50 Mg Tablet 50 Mg PO DAILY 03/29/18 Reported Lidocaine 1 Each Adh..patch 1 Each TP DAILY 03/29/18 Reported Culturelle (Lactobacillus Rhamnosus Gg) 1 Each Cap.sprink 1 Each PO BID 03/29/18 Reported Culturelle Capsule (L. Rhamnosus GG/Inulin) 1 Each Cap.sprink 1 Each PO 03/29/18 Reported Ferrous Sulfate 325 Mg Tablet 1 Tab PO DAILY 03/29/18 Reported Impression . 1. Acute pulmonary embolism in a patient who is morbidly obese with a BMI of 51.8 and fell off her bed last week. Her morbid obesity and immobilization appeared to be likely risk factors. However, she should be ruled out for hypercoagulable state. Venous Dopplers were negative. The patient should also be ruled out for any intracardiac shunt as she has developed embolic lacunar infarcts. 2. Recent encephalopathy and brain MRI showing recent subacute infarcts as well as several old lacunar infarcts. 3. No significant history of tobacco use. 4. No known malignancy and no known hypercoagulable state. Plan . 1. From a pulmonary standpoint, she is doing well and on room air. I will continue with Eliquis for a minimum of 3-6 months. 2. hypercoagulable panel. 3. echocardiogram with no intra cardiac shunt. 4. Antibiotics per Infectious Disease. 5. She will have a repeat CT angiogram in 6 weeks. BANDAR BENOIT MD Apr 01, 2018 10:29
[2018-04-01] MEDS ORDERED: amLODIPine BESYLATE 2.5 MG TABLET PO SCH (12:45)
[2018-04-01] MEDS ORDERED: amLODIPine BESYLATE 5 MG TABLET PO ONE (12:45)
--- NOTE | 2018-04-01 12:58 | PDOC ---
PROGRESS NOTES Chief Complaint Chief Complaint Subacute right frontal stroke w weakness, CVA syndrome, confusion yesterday, better today morbid Obesity, BMI 52 Pulmonary embolism Left-sided weakness, CVA syndrome, large abd hernia, chronic SIRS, was treated as sepsis syndrome, will wean off abx, no source found DM2, with ketoacidosis on admit, History of Present Illness History of Present Illness left sided hemiplegia, improving subacute stroke on MRI, mult areas noted on neuro noted PT OT - pt improving, Vitals Vitals Vital Signs Date Time Temp Pulse Resp B/P (MAP) Pulse Ox O2 Delivery O2 Flow Rate FiO2 04/01/18 12:52 76 193/69 04/01/18 11:55 98.1 18 92 Room Air 98.1 03/31/18 15:33 2.0 Physical Exam Physical Exam GENERAL: Alert, awake, somewhat confused female in no acute distress, cooperative, answers a few questions in yes and no. HEENT: Normocephalic, atraumatic, anicteric. No thrush. NECK: Supple. LUNGS: Clear bilaterally. HEART: S1, S2. ABDOMEN: Soft, obese. Bowel sounds present. Ventral hernia reducible. No tenderness. EXTREMITIES: No cyanosis, no clubbing. NEUROLOGIC: Alert, awake. Normal speech. PSYCHIATRIC: Normal affect. Cooperative. DERMATOLOGIC: No generalized rash. General: Oriented X3, Cooperative, No acute distress, Other (no dysarthria appreciable) Heart: Regular rate, Normal S1, Normal S2 Lungs: Clear Abdomen: Normal bowel sounds, Soft Extremities: No clubbing, No cyanosis Skin: No rashes, No breakdown Labs LABS Laboratory Tests Test 03/31/18 16:28 03/31/18 21:11 04/01/18 07:45 04/01/18 11:24 Glucose (Fingerstick) 212 mg/dL (70-99) 216 mg/dL (70-99) 194 mg/dL (70-99) 248 mg/dL (70-99) Comment Review of Relevant I have reviewed the following items rex (where applicable) has been applied. Labs Laboratory Tests Test 03/30/18 16:48 03/30/18 20:32 03/31/18 07:35 03/31/18 11:17 Glucose (Fingerstick) 152 mg/dL (70-99) 193 mg/dL (70-99) 167 mg/dL (70-99) 203 mg/dL (70-99) Test 03/31/18 16:28 03/31/18 21:11 04/01/18 07:45 04/01/18 11:24 Glucose (Fingerstick) 212 mg/dL (70-99) 216 mg/dL (70-99) 194 mg/dL (70-99) 248 mg/dL (70-99) Laboratory Tests Test 03/31/18 16:28 03/31/18 21:11 04/01/18 07:45 04/01/18 11:24 Glucose (Fingerstick) 212 mg/dL (70-99) 216 mg/dL (70-99) 194 mg/dL (70-99) 248 mg/dL (70-99) Microbiology 03/29/18 Blood Culture - Preliminary, Resulted NO GROWTH AFTER 2 DAYS Medications Current Medications Acetaminophen (Tylenol) 650 mg PRN Q6HRS PRN PO FEVER; Start 03/29/18 at 12:00 Ondansetron HCl (Zofran) 4 mg PRN Q6HRS PRN IV NAUSEA/VOMITING; Start 03/29/18 at 12:00 Morphine Sulfate (Morphine Sulfate) 2 mg PRN Q2HR PRN IV MODERATE TO SEVERE PAIN; Start 03/29/18 at 12:00 Tramadol HCl (Ultram) 50 mg PRN Q6HRS PRN PO MILD TO MODERATE PAIN; Start 03/29 at 12:00 Docusate Sodium (Colace) 100 mg PRN DAILY PRN PO CONSTIPATION; Start 03/29/18 at 12:00 Clonidine HCl (Catapres Tts-1) 1 patch We TD ; Start 04/04/18 at 09:00 Ferrous Sulfate (Feosol) 325 mg DAILY08 PO Last administered on 04/01/18at 07:51 ; Start 03/30/18 at 08:00 Losartan Potassium (Cozaar) 50 mg DAILY PO Last administered on 04/01/18at 08:19 ; Start 03/30/18 at 09:00 Lidocaine (Lidoderm) 1 patch DAILY TD Last administered on 04/01/18at 08:19; Start 03/29/18 at 15:00 Vancomycin HCl (Vanco Per Pharmacy) 1 each PRN DAILY PRN MC SEE COMMENTS; Start 03/29/18 at 13:00; Stop 03/29/18 at 14:23; Status DC Vancomycin HCl 2 gm/Sodium Chloride 500 ml @ 250 mls/hr Q12H IV ; Start at 13:00; Stop 03/29/18 at 14:23; Status DC Piperacillin Sod/ Tazobactam Sod 4.5 gm/Sodium Chloride 100 ml @ 200 mls/hr Q6HRS IV Last administered on 03/30/18at 05:09; Start 03/29/18 at 15:00; Stop at 12:35; Status DC Piperacillin Sod/ Tazobactam Sod (Zosyn Per Pharmacy) 1 each PRN DAILY PRN MC SEE COMMENTS; Start 03/29/18 at 13:00; Stop 03/30/18 at 12:36; Status DC Apixaban (Eliquis) 10 mg BID PO Last administered on 03/29/18at 21:35; Start at 21:00; Stop 03/30/18 at 12:37; Status DC Insulin Human Lispro (HumaLOG) 0-9 UNITS TIDWMEALS SQ Last administered on 04/01at 11:35; Start 03/29/18 at 17:00 Dextrose (Dextrose 50%-Water Syringe) 12.5 gm PRN Q15MIN PRN IV SEE COMMENTS; Start 03/29/18 at 13:00 Sodium Chloride 1,000 ml @ 75 mls/hr [id number] IV Last administered on at 05:16; Start 03/29/18 at 13:00; Stop 04/01/18 at 12:39; Status DC Albuterol Sulfate (Ventolin Neb Soln) 2.5 mg PRN Q4HRS PRN NEB SHORTNESS OF BREATH; Start 03/29/18 at 13:00 Labetalol HCl (Normodyne Iv Push) 20 mg PRN Q2HR PRN IVP HYPERTENSION, SEE COMMENTS Last administered on 03/30/18at 21:05; Start 03/29/18 at 13:00 Atorvastatin Calcium (Lipitor) 40 mg QHS PO Last administered on 03/31/18at 20: 48; Start 03/30/18 at 21:00 Aspirin (Ecotrin) 325 mg DAILYWBKFT PO Last administered on 04/01/18at 07:52; Start 03/30/18 at 13:00 Apixaban (Eliquis) 10 mg BID PO Last administered on 04/01/18at 08:17; Start at 09:00 Amlodipine Besylate (Norvasc) 2.5 mg DAILY PO Last administered on 04/01/18at 08 :18; Start 03/31/18 at 10:00; Stop 04/01/18 at 12:38; Status DC Amlodipine Besylate (Norvasc) 5 mg DAILY PO ; Start 04/01/18 at 12:45; Stop at 12:48; Status DC Amlodipine Besylate (Norvasc) 5 mg 1X ONCE PO Last administered on 04/01/18at 12:52; Start 04/01/18 at 12:45; Stop 04/01/18 at 12:46; Status DC Amlodipine Besylate (Norvasc) 5 mg DAILY PO ; Start 04/02/18 at 09:00 Active Scripts Active Reported Benadryl (Diphenhydramine Hcl) 25 Mg Capsule 50 Mg PO HS Clonidine Tts-1 (Clonidine) 1 Each Patch.tdwk 1 Patch TD WEEKLY Ondansetron Odt (Ondansetron) 4 Mg Tab.rapdis 4 Mg PO BID PRN Losartan Potassium 50 Mg Tablet 50 Mg PO DAILY Lidocaine 1 Each Adh..patch 1 Each TP DAILY Culturelle (Lactobacillus Rhamnosus Gg) 1 Each Cap.sprink 1 Each PO BID Culturelle Capsule (L. Rhamnosus GG/Inulin) 1 Each Cap.sprink 1 Each PO Ferrous Sulfate 325 Mg Tablet 1 Tab PO DAILY Vitals/I & O Vital Sign - Last 24 Hours 03/31/18 03/31/18 03/31/18 03/31/18 15:33 19:00 19:15 23:00 Temp 97.9 99.0 98.4 97.9 99.0 98.4 Pulse 76 78 75 Resp 18 22 20 B/P (MAP) 174/66 (102) 169/78 (108) 168/82 (110) Pulse Ox 91 92 96 O2 Delivery Nasal Cannula Room Air O2 Flow Rate 2.0 04/01/18 04/01/18 04/01/18 04/01/18 03:00 07:00 08:00 08:18 Temp 98.7 97.5 98.7 97.5 Pulse 77 74 74 Resp 18 18 B/P (MAP) 180/87 (118) 178/78 (111) 178/78 Pulse Ox 94 91 O2 Delivery Room Air Room Air 04/01/18 04/01/18 04/01/18 08:19 11:55 12:52 Temp 98.1 98.1 Pulse 74 76 76 Resp 18 B/P (MAP) 178/78 193/69 (110) 193/69 Pulse Ox 92 O2 Delivery Room Air Intake and Output 03/31/18 03/31/18 04/01/18 15:00 23:00 07:00 Intake Total 100 ml 1240 ml 1530 ml Balance 100 ml 1240 ml 1530 ml TEO RYDER MD Apr 01, 2018 12:58
--- NOTE | 2018-04-01 14:35 | PDOC ---
PROGRESS NOTES Assessment Assessment Subacute right frontal WM, oh radiata, BG, insular, and external capsule infracts, embolic etiology. Metabolic encephalopathy. PE. Hyperglycemia, glucose 573. DKA. DM, poorly controlled. HLD. UTI. Lactic acidosis. Old bilateral hemisphere lacunar infarcts. Morbid obesity. RECOMMENDATIONS/PLAN: Continue Eliquis. Continue Lipitor 40 mg HS. Treat medical diseases. Control hyperglycemia. OT/PT. Weight reduction. Carotid A US + Doppler: No high grade stenosis. Echo + Bubble study: Unremarkable. Lipid panel: HLD. HISTORY OF THE PRESENT ILLNESS: 47-y-old patient with above medical diseases fell over the bed and was unable to get up. She was on the floor for about 5 hours until her sister went to her place to check on her. She was brought to the ER of [facility] by EMS, and was eventually transferred to [facility]. Her glucose level was 473. She had confusional episodes, so neurology was requested for consultation. PAST MEDICAL HISTORY: Diabetes, noncompliance. Stroke. Morbid obesity. DKA at [facility], hypokalemia, hyponatremia, elevated CK, possible UTI , mental status changes. PAST SURGICAL HISTORY: Hernia repair. ALLERGY: Reviewed. MEDICATIONS: Refer to [facility] FAMILY HISTORY: Unknown. SOCIAL HISTORY: Lives alone. Denies current smoking, drinking, and illicit drug use. REVIEW OF SYSTEMS: Constitutional: Morbid obesity. Head: No traumatic brain or head injury. Skin: No edema, or rash. Ear: No infection. Eyes: No vision loss or color blindness. Nose: No bleeding or purulent discharges. Hearing: No hearing decrease. Neck: No injury. Breast: No history of cancer, masses,or discharges. Cardiac: No SC, arrhythmia. Pulmonary: No COPD. GI: No GI ulcer, GI bleeding. Urinary/genital: UTI. Endocrinologic: Diabetes Mellitus, morbid obesity. Skeletomuscular: No muscular atrophy, deformity. Neurological: see HP. Psychiatric: Denies drug use/abuse. Otherwise, not [id number] review of systems. PHYSICAL EXAMINATION: General appearance is in subacute distress. HEENT: Normocephalic and nontraumatic. Eyes, nose, ears, and throat are unremarkable. Neck is supple. No lymphadenopathy. No crepitus. Cardiovascular: S1, S2, regular rate and rhythm. Pulmonary: Clear to auscultation bilaterally. Abdomen: Bowel sounds are positive. Extremities: No rash, lesions, or edema. No restriction of range of motion NEUROLOGICAL EXAMINATION: Awake. Not fully oriented to time, but knew place and person. PERRL. EOMI. CN: no focal findings. Muscle tone: decreased. Muscle strength: 4+ DTR: 0-1 due to obesity. Plantar reflex: Flexor response bilaterally Gait: Able to walk with a walker. Sensory exam: no acute abnormal findings. No cerebellar signs elicited. F-T-N test fine. Objective Objective Vital Signs Date Time Temp Pulse Resp B/P (MAP) Pulse Ox O2 Delivery O2 Flow Rate FiO2 04/01/18 12:52 76 193/69 04/01/18 11:55 98.1 18 92 Room Air 98.1 03/31/18 15:33 2.0 Intake and Output 04/01/18 07:00 Intake Total 2870 ml Balance 2870 ml Intake Oral 870 ml IV Total 2000 ml # Voids 4 # Bowel Movements 1 Vitals Signs Vitals VS - Last 72 Hours, by Label Date Time Temp Pulse Resp B/P (MAP) Pulse Ox O2 Delivery O2 Flow Rate FiO2 04/01/18 12:52 76 193/69 04/01/18 11:55 98.1 76 18 193/69 (110) 92 Room Air 98.1 04/01/18 08:19 74 178/78 04/01/18 08:18 74 178/78 04/01/18 08:00 Room Air 04/01/18 07:00 97.5 74 18 178/78 (111) 91 Room Air 97.5 04/01/18 03:00 98.7 77 18 180/87 (118) 94 98.7 03/31/18 23:00 98.4 75 20 168/82 (110) 96 98.4 03/31/18 19:15 Room Air 03/31/18 19:00 99.0 78 22 169/78 (108) 92 99.0 03/31/18 15:33 97.9 76 18 174/66 (102) 91 Nasal Cannula 2.0 97.9 03/31/18 11:48 68 189/66 03/31/18 11:37 97.7 68 18 189/66 (107) 94 Room Air 97.7 03/31/18 08:57 70 184/74 03/31/18 08:00 Room Air 03/31/18 07:00 99.1 70 18 184/74 (110) 96 High Flow Nasal Cannula 2.0 99.1 Laboratory Laboratory Laboratory Tests Test 03/31/18 16:28 03/31/18 21:11 04/01/18 07:45 04/01/18 11:24 Glucose (Fingerstick) 212 mg/dL (70-99) 216 mg/dL (70-99) 194 mg/dL (70-99) 248 mg/dL (70-99) Microbiology 03/29/18 Blood Culture - Preliminary, Resulted NO GROWTH AFTER 3 DAYS Medication Medications Current Medications Amlodipine Besylate (Norvasc) 5 mg 1X ONCE PO Last administered on 04/01/18at 12:52; Start 04/01/18 at 12:45; Stop 04/01/18 at 12:46; Status DC Amlodipine Besylate (Norvasc) 5 mg DAILY PO ; Start 04/01/18 at 12:45; Stop at 12:48; Status DC Amlodipine Besylate (Norvasc) 5 mg DAILY PO ; Start 04/02/18 at 09:00 Clonidine HCl (Catapres Tts-1) 1 patch We TD ; Start 04/04/18 at 09:00 Comment Review of Relevant I have reviewed the following items rex (where applicable) has been applied. GOVIND DUMONT MD Apr 01, 2018 14:35
[2018-04-01] MEDS: ATORVASTATIN CALCIUM 40 MG TABLET. PO SCH (20:36)
[2018-04-02 03:05] VITALS: BP 175/77
[2018-04-02 07:00] VITALS: BP 191/70
[2018-04-02] MEDS: LIDOCAINE (700MG/PATCH) PATCH. TD SCH (08:24)
[2018-04-02] MEDS: FERROUS SULFATE 325 MG TABLET. PO SCH (08:26)
[2018-04-02] MEDS: APIXABAN 5 MG TABLET. PO SCH ×2 (08:26→20:27)
[2018-04-02] MEDS: amLODIPine BESYLATE 5 MG TABLET PO SCH (08:26)
[2018-04-02] MEDS: ASPIRIN ENTERIC COATED 325 MG TABLET.DR. PO SCH (08:26)
[2018-04-02] MEDS: LOSARTAN POTASSIUM 50 MG TABLET. PO SCH (08:27)
[2018-04-02] MEDS: INSULIN LISPRO 300 UNITS/3 ML INSULN.PEN. SQ SCH ×3 (08:47→18:41)
[2018-04-02] MEDS ORDERED: AMLO5TAB7 PO (08:54)
[2018-04-02] MEDS ORDERED: ATOR40TA59 PO (08:54)
[2018-04-02] MEDS ORDERED: ASPI325T11 PO (08:54)
--- NOTE | 2018-04-02 09:23 | PDOC ---
PULMONARY PROGRESS NOTES Subjective no soa Vitals Vital Signs Date Time Temp Pulse Resp B/P (MAP) Pulse Ox O2 Delivery O2 Flow Rate FiO2 04/02/18 08:27 73 191/70 04/02/18 07:00 97.9 20 95 Room Air 97.9 General: Alert, No acute distress Lungs: Clear Cardiovascular: S1 Abdomen: Soft, Other (obese) Extremities: Other (1+edema) Labs Laboratory Tests Test 03/31/18 11:17 03/31/18 16:28 03/31/18 21:11 04/01/18 07:45 Glucose (Fingerstick) 203 mg/dL (70-99) 212 mg/dL (70-99) 216 mg/dL (70-99) 194 mg/dL (70-99) Test 04/01/18 11:24 04/01/18 16:35 04/01/18 20:36 04/02/18 08:24 Glucose (Fingerstick) 248 mg/dL (70-99) 181 mg/dL (70-99) 222 mg/dL (70-99) 182 mg/dL (70-99) Laboratory Tests Test 04/01/18 11:24 04/01/18 16:35 04/01/18 20:36 04/02/18 08:24 Glucose (Fingerstick) 248 mg/dL (70-99) 181 mg/dL (70-99) 222 mg/dL (70-99) 182 mg/dL (70-99) Medications Active Scripts Medications Dose Route/Sig Max Daily Dose Days Date Category Benadryl (Diphenhydramine Hcl) 25 Mg Capsule 50 Mg PO HS 03/29/18 Reported Clonidine Tts-1 (Clonidine) 1 Each Patch.tdwk 1 Patch TD WEEKLY 03/29/18 Reported Ondansetron Odt (Ondansetron) 4 Mg Tab.rapdis 4 Mg PO BID PRN 03/29/18 Reported Losartan Potassium 50 Mg Tablet 50 Mg PO DAILY 03/29/18 Reported Lidocaine 1 Each Adh..patch 1 Each TP DAILY 03/29/18 Reported Culturelle (Lactobacillus Rhamnosus Gg) 1 Each Cap.sprink 1 Each PO BID 03/29/18 Reported Culturelle Capsule (L. Rhamnosus GG/Inulin) 1 Each Cap.sprink 1 Each PO 03/29/18 Reported Ferrous Sulfate 325 Mg Tablet 1 Tab PO DAILY 03/29/18 Reported Impression . 1. Acute pulmonary embolism in a patient who is morbidly obese with a BMI of 51.8 and fell off her bed last week. Her morbid obesity and immobilization appeared to be likely risk factors. However, she should be ruled out for hypercoagulable state. Venous Dopplers were negative. The patient should also be ruled out for any intracardiac shunt as she has developed embolic lacunar infarcts. 2. Recent encephalopathy and brain MRI showing recent subacute infarcts as well as several old lacunar infarcts. 3. No significant history of tobacco use. 4. No known malignancy and no known hypercoagulable state. Plan . CONTINUE ANTI COUGULATION FOR 3-6 MONTHS PT TO FOLLOW DR BENOIT ONCE D/C HOME REPEAT CT IN 6 MONTHS FOLLOW OTHER CONSULTANTS INPUT SHANIKA RAPP MD Apr 02, 2018 09:23
--- NOTE | 2018-04-02 10:01 | PDOC3 ---
Discharge Summary Visit Information Date of Admission: Mar 29, 2018 Date of Discharge: Apr 02, 2018 Admitting Diagnosis Comment: Subacute right frontal stroke Obesity, BMI 52 Negative carotids Left-sided weakness Huge abd hernia, chronic Brief Hospital Course Allergies Allergies Coded Allergies Type Severity Reaction Last Updated Verified No Known Drug Allergies 03/29/18 No Vital Signs Vital Signs Date Time Temp Pulse Resp B/P (MAP) Pulse Ox O2 Delivery O2 Flow Rate FiO2 04/02/18 08:27 73 191/70 04/02/18 07:00 97.9 20 95 Room Air 97.9 Lab Results Laboratory Tests Test 03/31/18 11:17 03/31/18 16:28 03/31/18 21:11 04/01/18 07:45 Glucose (Fingerstick) 203 mg/dL (70-99) 212 mg/dL (70-99) 216 mg/dL (70-99) 194 mg/dL (70-99) Test 04/01/18 11:24 04/01/18 16:35 04/01/18 20:36 04/02/18 08:24 Glucose (Fingerstick) 248 mg/dL (70-99) 181 mg/dL (70-99) 222 mg/dL (70-99) 182 mg/dL (70-99) Laboratory Tests Test 04/01/18 11:24 04/01/18 16:35 04/01/18 20:36 04/02/18 08:24 Glucose (Fingerstick) 248 mg/dL (70-99) 181 mg/dL (70-99) 222 mg/dL (70-99) 182 mg/dL (70-99) Brief Hospital Course Ms. Unger is a 47 old obese female, lives at home, admitted because of an acute CVA multiple areas,'s small. She presented with left-sided weakness and some slurred speech. She is self-pay. She was not on any aspirin prior to admission. MRI did show the subacute strokes. We started aspirin and statin. Needed to stay over the weekend because was very weak but unfortunately self-pay. I do agree she needs some form of rehabilitation. Family will pitch in for PT needs. I have left Rx on chart including aspirin and statin etc. Fall risk. Consults performed neurology Carotid Dopplers are negative. Echo is unremarkable. She initially thought she was having difficulty swallowing too, she may have some sort of anxiety. But cleared by [employer] [employer] [facility], has been tolerating regular diet in house. dc 31 minutes, greater than 50% DC education counseling coordination. Discharge Information Condition at Discharge: Improved, Stable Disposition/Orders: D/C to Home Scheduled Amlodipine Besylate (Amlodipine Besylate) 5 Mg Tablet, 5 MG PO DAILY for 30 Days , #30 Prescribed by: RADHA MIRANDA on 04/02/18 0854 Aspirin (Aspirin Ec) 325 Mg Tablet.dr, 325 MG PO DAILYWBKFT for 30 Days, #30 Prescribed by: RADHA MIRANDA on 04/02/18 0854 Atorvastatin Calcium (Atorvastatin Calcium) 40 Mg Tablet, 40 MG PO QHS for 30 Days, #30 Prescribed by: RADHA MIRANDA on 04/02/18 0854 Clonidine (Clonidine Tts-1) 1 Each Patch.tdwk, 1 PATCH TD WEEKLY, (Reported) Entered as Reported by: GLENDY RAWLS on 03/29/181208 Last Taken: Unknown Dose on 03/28/18 Last Action: Continued on 03/29/18 1251 by MARICHUY ESCALERA MD Diphenhydramine Hcl (Benadryl) 25 Mg Capsule, 50 MG PO HS, (Reported) Entered as Reported by: GLENDY RAWLS on 03/29/181208 Last Taken: Unknown Dose on 03/29/18 Last Action: HELD on 03/29/18 1251 by MARICHUY ESCALERA MD Ferrous Sulfate (Ferrous Sulfate) 325 Mg Tablet, 1 TAB PO DAILY, #30 Ref 3 ( Reported) Entered as Reported by: GLENDY RAWLS on 03/29/181208 Last Taken: Unknown Dose on 03/29/18 Last Action: Continued on 03/29/18 1251 by MARICHUY ESCALERA MD Lactobacillus Rhamnosus Gg (Culturelle) 1 Each Cap.sprink, 1 EACH PO BID, ( Reported) Entered as Reported by: GLENDY RAWLS on 03/29/181208 Last Taken: Unknown Dose on 03/29/18 Last Action: HELD on 03/29/18 1251 by MARICHUY ESCALERA MD Lidocaine (Lidocaine) 1 Each Adh..patch, 1 EACH TP DAILY, (Reported) Entered as Reported by: GLENDY RAWLS on 03/29/181208 Last Taken: Unknown Dose on 03/29/18 Last Action: Converted on 03/29/181250 by MARICHUY ESCALERA MD Losartan Potassium (Losartan Potassium) 50 Mg Tablet, 50 MG PO DAILY, (Reported) Entered as Reported by: GLENDY RAWLS on 03/29/181208 Last Taken: Unknown Dose on 03/29/18 Last Action: Continued on 03/29/181250 by MARICHUY ESCALERA MD Scheduled PRN Ondansetron (Ondansetron Odt) 4 Mg Tab.rapdis, 4 MG PO BID PRN for NAUSEA/ VOMITING, (Reported) Entered as Reported by: GLENDY RAWLS on 03/29/181208 Last Taken: Unknown Dose on 03/29/18 Last Action: HELD on 03/29/181250 by MARICHUY ESCALERA MD Miscellaneous Medications L. Rhamnosus GG/Inulin (Culturelle Capsule) 1 Each Cap.sprink, 1 EACH PO, ( Reported) Entered as Reported by: GLENDY RAWLS on 03/29/181208 Last Taken: Unknown Dose on 03/29/18 Last Action: HELD on 03/29/181250 by MD RUTH RIBEIRO CHERRIE Y MD Apr 02, 2018 10:00
--- NOTE | 2018-04-02 12:15 | PDOC ---
PROGRESS NOTES Assessment Subacute right frontal, oh radiata, BG, insular, and external capsule infracts, lacunar versus embolic etiology. Metabolic encephalopathy. PE. Hyperglycemia, glucose 573. DKA. DM, poorly controlled. HLD. UTI. Lactic acidosis. Old bilateral hemisphere lacunar infarcts. Morbid obesity. Diabetic neuropathy Plan Okay for discharge to residential Continue Eliquis. Continue Lipitor 40 mg HS. Treat medical diseases. Control hyperglycemia. OT/PT. Weight reduction. Subjective No complaints, ready to go to rehab Objective Vital Signs Date Time Temp Pulse Resp B/P (MAP) Pulse Ox O2 Delivery O2 Flow Rate FiO2 04/02/18 08:27 73 191/70 04/02/18 07:00 97.9 20 95 Room Air 97.9 Intake and Output 04/02/18 07:00 Intake Total 1630 ml Output Total 0 ml Balance 1630 ml Intake Oral 930 ml IV Total 700 ml Output Urine Total 0 ml # Voids 4 PHYSICAL EXAM Alert. Oriented to time, place and person. PERRL. EOMI. CN: no focal findings. Muscle tone: normal. Muscle strength: 4/5 DTR: 1+ Plantar reflex: flexor Gait: not examined in bed. Sensory exam: Stocking sensory loss. No cerebellar signs elicited. Review of Relevant I have reviewed the following items rex (where applicable) has been applied. Labs Laboratory Tests Test 03/31/18 16:28 03/31/18 21:11 04/01/18 07:45 04/01/18 11:24 Glucose (Fingerstick) 212 mg/dL (70-99) 216 mg/dL (70-99) 194 mg/dL (70-99) 248 mg/dL (70-99) Test 04/01/18 16:35 04/01/18 20:36 04/02/18 08:24 Glucose (Fingerstick) 181 mg/dL (70-99) 222 mg/dL (70-99) 182 mg/dL (70-99) Laboratory Tests Test 04/01/18 16:35 04/01/18 20:36 04/02/18 08:24 Glucose (Fingerstick) 181 mg/dL (70-99) 222 mg/dL (70-99) 182 mg/dL (70-99) Microbiology 03/29/18 Blood Culture - Preliminary, Resulted NO GROWTH AFTER 3 DAYS Medications Current Medications Acetaminophen (Tylenol) 650 mg PRN Q6HRS PRN PO FEVER; Start 03/29/18 at 12:00 Ondansetron HCl (Zofran) 4 mg PRN Q6HRS PRN IV NAUSEA/VOMITING; Start 03/29/18 at 12:00 Morphine Sulfate (Morphine Sulfate) 2 mg PRN Q2HR PRN IV MODERATE TO SEVERE PAIN; Start 03/29/18 at 12:00 Tramadol HCl (Ultram) 50 mg PRN Q6HRS PRN PO MILD TO MODERATE PAIN; Start 03/29 at 12:00 Docusate Sodium (Colace) 100 mg PRN DAILY PRN PO CONSTIPATION; Start 03/29/18 at 12:00 Clonidine HCl (Catapres Tts-1) 1 patch We TD ; Start 04/04/18 at 09:00 Ferrous Sulfate (Feosol) 325 mg DAILY08 PO Last administered on 04/02/18at 08:26 ; Start 03/30/18 at 08:00 Losartan Potassium (Cozaar) 50 mg DAILY PO Last administered on 04/02/18at 08:27 ; Start 03/30/18 at 09:00 Lidocaine (Lidoderm) 1 patch DAILY TD Last administered on 04/02/18at 08:24; Start 03/29/18 at 15:00 Vancomycin HCl (Vanco Per Pharmacy) 1 each PRN DAILY PRN MC SEE COMMENTS; Start 03/29/18 at 13:00; Stop 03/29/18 at 14:23; Status DC Vancomycin HCl 2 gm/Sodium Chloride 500 ml @ 250 mls/hr Q12H IV ; Start at 13:00; Stop 03/29/18 at 14:23; Status DC Piperacillin Sod/ Tazobactam Sod 4.5 gm/Sodium Chloride 100 ml @ 200 mls/hr Q6HRS IV Last administered on 03/30/18at 05:09; Start 03/29/18 at 15:00; Stop at 12:35; Status DC Piperacillin Sod/ Tazobactam Sod (Zosyn Per Pharmacy) 1 each PRN DAILY PRN MC SEE COMMENTS; Start 03/29/18 at 13:00; Stop 03/30/18 at 12:36; Status DC Apixaban (Eliquis) 10 mg BID PO Last administered on 03/29/18at 21:35; Start at 21:00; Stop 03/30/18 at 12:37; Status DC Insulin Human Lispro (HumaLOG) 0-9 UNITS TIDWMEALS SQ Last administered on 04/02at 08:47; Start 03/29/18 at 17:00 Dextrose (Dextrose 50%-Water Syringe) 12.5 gm PRN Q15MIN PRN IV SEE COMMENTS; Start 03/29/18 at 13:00 Sodium Chloride 1,000 ml @ 75 mls/hr [id number] IV Last administered on at 05:16; Start 03/29/18 at 13:00; Stop 04/01/18 at 12:39; Status DC Albuterol Sulfate (Ventolin Neb Soln) 2.5 mg PRN Q4HRS PRN NEB SHORTNESS OF BREATH; Start 03/29/18 at 13:00 Labetalol HCl (Normodyne Iv Push) 20 mg PRN Q2HR PRN IVP HYPERTENSION, SEE COMMENTS Last administered on 03/30/18at 21:05; Start 03/29/18 at 13:00 Atorvastatin Calcium (Lipitor) 40 mg QHS PO Last administered on 04/01/18at 20: 36; Start 03/30/18 at 21:00 Aspirin (Ecotrin) 325 mg DAILYWBKFT PO Last administered on 04/02/18at 08:26; Start 03/30/18 at 13:00 Apixaban (Eliquis) 10 mg BID PO Last administered on 04/02/18at 08:26; Start at 09:00 Amlodipine Besylate (Norvasc) 2.5 mg DAILY PO Last administered on 04/01/18at 08 :18; Start 03/31/18 at 10:00; Stop 04/01/18 at 12:38; Status DC Amlodipine Besylate (Norvasc) 5 mg DAILY PO ; Start 04/01/18 at 12:45; Stop at 12:48; Status DC Amlodipine Besylate (Norvasc) 5 mg 1X ONCE PO Last administered on 04/01/18at 12:52; Start 04/01/18 at 12:45; Stop 04/01/18 at 12:46; Status DC Amlodipine Besylate (Norvasc) 5 mg DAILY PO Last administered on 04/02/18at 08: 26; Start 04/02/18 at 09:00 Active Scripts Active Aspirin Ec (Aspirin) 325 Mg Tablet. 325 Mg PO DAILYWBKFT 30 Days Amlodipine Besylate 5 Mg Tablet 5 Mg PO DAILY 30 Days Atorvastatin Calcium 40 Mg Tablet 40 Mg PO QHS 30 Days Reported Benadryl (Diphenhydramine Hcl) 25 Mg Capsule 50 Mg PO HS Clonidine Tts-1 (Clonidine) 1 Each Patch.tdwk 1 Patch TD WEEKLY Ondansetron Odt (Ondansetron) 4 Mg Tab.rapdis 4 Mg PO BID PRN Losartan Potassium 50 Mg Tablet 50 Mg PO DAILY Lidocaine 1 Each Adh..patch 1 Each TP DAILY Culturelle (Lactobacillus Rhamnosus Gg) 1 Each Cap.sprink 1 Each PO BID Culturelle Capsule (L. Rhamnosus GG/Inulin) 1 Each Cap.sprink 1 Each PO Ferrous Sulfate 325 Mg Tablet 1 Tab PO DAILY Vitals/I & O Vital Sign - Last 24 Hours 04/01/18 04/01/18 04/01/18 04/01/18 12:52 15:28 18:00 19:00 Temp 98.1 98.2 98.1 98.2 Pulse 76 97 94 84 Resp 16 20 B/P (MAP) 193/69 184/80 (114) 171/71 (104) 186/77 (113) Pulse Ox 95 93 O2 Delivery Room Air Room Air 04/01/18 04/01/18 04/01/18 04/02/18 19:10 22:01 23:05 03:05 Temp 96.8 98.0 96.8 98.0 Pulse 84 68 Resp 20 20 B/P (MAP) 177/77 (110) 175/77 (109) Pulse Ox 96 99 O2 Delivery Room Air Room Air Room Air Room Air 04/02/18 04/02/18 04/02/18 07:00 08:26 08:27 Temp 97.9 97.9 Pulse 73 73 73 Resp 20 B/P (MAP) 191/70 (110) 191/70 191/70 Pulse Ox 95 O2 Delivery Room Air Intake and Output 04/01/18 04/01/18 04/02/18 15:00 23:00 07:00 Intake Total 700 ml 430 ml 500 ml Output Total 0 ml Balance 700 ml 430 ml 500 ml GEORGETTE GOOD MD Apr 02, 2018 12:15
[2018-04-02] MEDS: ANTI-COAG MONITOR BY PHARMACY. MC PRN (14:37)
[2018-04-02 15:00] VITALS: BP 187/66
[2018-04-02 19:00] VITALS: BP 163/79
[2018-04-02] MEDS: ATORVASTATIN CALCIUM 40 MG TABLET. PO SCH (20:27)
[2018-04-02 23:00] VITALS: BP 162/69
[2018-04-03 03:00] VITALS: BP 173/76
[2018-04-03 07:00] VITALS: BP 154/68
[2018-04-03] MEDS: FERROUS SULFATE 325 MG TABLET. PO SCH (08:09)
[2018-04-03] MEDS: LOSARTAN POTASSIUM 50 MG TABLET. PO SCH (08:09)
[2018-04-03] MEDS: ASPIRIN ENTERIC COATED 325 MG TABLET.DR. PO SCH (08:09)
[2018-04-03] MEDS: amLODIPine BESYLATE 5 MG TABLET PO SCH (08:10)
[2018-04-03] MEDS: APIXABAN 5 MG TABLET. PO SCH ×2 (08:10→20:25)
[2018-04-03] MEDS: LIDOCAINE (700MG/PATCH) PATCH. TD SCH (08:10)
[2018-04-03] MEDS: INSULIN LISPRO 300 UNITS/3 ML INSULN.PEN. SQ SCH ×3 (08:13→17:09)
--- NOTE | 2018-04-03 09:08 | PDOC ---
PULMONARY PROGRESS NOTES Subjective no soa Vitals Vital Signs Date Time Temp Pulse Resp B/P (MAP) Pulse Ox O2 Delivery O2 Flow Rate FiO2 04/03/18 08:10 69 154/68 04/03/18 07:00 96.4 16 95 Room Air 96.4 General: Alert, No acute distress Lungs: Clear Cardiovascular: S1 Abdomen: Soft, Other (obese) Extremities: Other (1+edema) Labs Laboratory Tests Test 04/01/18 11:24 04/01/18 16:35 04/01/18 20:36 04/02/18 08:24 Glucose (Fingerstick) 248 mg/dL (70-99) 181 mg/dL (70-99) 222 mg/dL (70-99) 182 mg/dL (70-99) Test 04/02/18 13:14 04/02/18 17:29 04/02/18 20:33 04/03/18 07:31 Glucose (Fingerstick) 279 mg/dL (70-99) 171 mg/dL (70-99) 155 mg/dL (70-99) 152 mg/dL (70-99) Laboratory Tests Test 04/02/18 13:14 04/02/18 17:29 04/02/18 20:33 04/03/18 07:31 Glucose (Fingerstick) 279 mg/dL (70-99) 171 mg/dL (70-99) 155 mg/dL (70-99) 152 mg/dL (70-99) Medications Active Scripts Medications Dose Route/Sig Max Daily Dose Days Date Category Benadryl (Diphenhydramine Hcl) 25 Mg Capsule 50 Mg PO HS 03/29/18 Reported Clonidine Tts-1 (Clonidine) 1 Each Patch.tdwk 1 Patch TD WEEKLY 03/29/18 Reported Ondansetron Odt (Ondansetron) 4 Mg Tab.rapdis 4 Mg PO BID PRN 03/29/18 Reported Losartan Potassium 50 Mg Tablet 50 Mg PO DAILY 03/29/18 Reported Lidocaine 1 Each Adh..patch 1 Each TP DAILY 03/29/18 Reported Culturelle (Lactobacillus Rhamnosus Gg) 1 Each Cap.sprink 1 Each PO BID 03/29/18 Reported Culturelle Capsule (L. Rhamnosus GG/Inulin) 1 Each Cap.sprink 1 Each PO 03/29/18 Reported Ferrous Sulfate 325 Mg Tablet 1 Tab PO DAILY 03/29/18 Reported Impression . 1. Acute pulmonary embolism in a patient who is morbidly obese with a BMI of 51.8 and fell off her bed last week. Her morbid obesity and immobilization appeared to be likely risk factors. However, she should be ruled out for hypercoagulable state. Venous Dopplers were negative. The patient should also be ruled out for any intracardiac shunt as she has developed embolic lacunar infarcts. 2. Recent encephalopathy and brain MRI showing recent subacute infarcts as well as several old lacunar infarcts. 3. No significant history of tobacco use. 4. No known malignancy and no known hypercoagulable state. Plan . CONTINUE ANTI COUGULATION FOR 3-6 MONTHS CAN FOLLOW PCP WILL S/O REPEAT CT IN 6 MONTHS SHANIKA RAPP MD Apr 03, 2018 09:08
--- NOTE | 2018-04-03 09:59 | PDOC ---
PROGRESS NOTES Assessment Subacute right frontal, oh radiata, BG, insular, and external capsule infracts, lacunar versus embolic etiology. Metabolic encephalopathy. Old bilateral hemisphere lacunar infarcts. Diabetic neuropathy Plan Okay for discharge to [facility] Continue Eliquis. Continue Lipitor 40 mg HS. Treat medical diseases. Control hyperglycemia. OT/PT. Weight reduction. Subjective Denies complaints Objective Vital Signs Date Time Temp Pulse Resp B/P (MAP) Pulse Ox O2 Delivery O2 Flow Rate FiO2 04/03/18 08:10 69 154/68 04/03/18 07:00 96.4 16 95 Room Air 96.4 Intake and Output 04/03/18 07:00 Intake Total 700 ml Balance 700 ml Intake Oral 700 ml # Voids 5 # Bowel Movements 1 PHYSICAL EXAM Alert. Oriented to time, place and person. PERRL. EOMI. CN: no focal findings. Muscle tone: normal. Muscle strength: 4/5 DTR: 1+ Plantar reflex: flexor Gait: not examined in bed. Sensory exam: stocking sensory loss. No cerebellar signs elicited. Review of Relevant I have reviewed the following items rex (where applicable) has been applied. Labs Laboratory Tests Test 04/01/18 11:24 04/01/18 16:35 04/01/18 20:36 04/02/18 08:24 Glucose (Fingerstick) 248 mg/dL (70-99) 181 mg/dL (70-99) 222 mg/dL (70-99) 182 mg/dL (70-99) Test 04/02/18 13:14 04/02/18 17:29 04/02/18 20:33 04/03/18 07:31 Glucose (Fingerstick) 279 mg/dL (70-99) 171 mg/dL (70-99) 155 mg/dL (70-99) 152 mg/dL (70-99) Laboratory Tests Test 04/02/18 13:14 04/02/18 17:29 04/02/18 20:33 04/03/18 07:31 Glucose (Fingerstick) 279 mg/dL (70-99) 171 mg/dL (70-99) 155 mg/dL (70-99) 152 mg/dL (70-99) Microbiology 03/29/18 Blood Culture - Preliminary, Resulted NO GROWTH AFTER 4 DAYS Medications Current Medications Acetaminophen (Tylenol) 650 mg PRN Q6HRS PRN PO FEVER; Start 03/29/18 at 12:00 Ondansetron HCl (Zofran) 4 mg PRN Q6HRS PRN IV NAUSEA/VOMITING; Start 03/29/18 at 12:00 Morphine Sulfate (Morphine Sulfate) 2 mg PRN Q2HR PRN IV MODERATE TO SEVERE PAIN; Start 03/29/18 at 12:00 Tramadol HCl (Ultram) 50 mg PRN Q6HRS PRN PO MILD TO MODERATE PAIN; Start 03/29 at 12:00 Docusate Sodium (Colace) 100 mg PRN DAILY PRN PO CONSTIPATION; Start 03/29/18 at 12:00 Clonidine HCl (Catapres Tts-1) 1 patch We TD ; Start 04/04/18 at 09:00 Ferrous Sulfate (Feosol) 325 mg DAILY08 PO Last administered on 04/03/18at 08:09 ; Start 03/30/18 at 08:00 Losartan Potassium (Cozaar) 50 mg DAILY PO Last administered on 04/03/18at 08:09 ; Start 03/30/18 at 09:00 Lidocaine (Lidoderm) 1 patch DAILY TD Last administered on 04/03/18at 08:10; Start 03/29/18 at 15:00 Vancomycin HCl (Vanco Per Pharmacy) 1 each PRN DAILY PRN MC SEE COMMENTS; Start 03/29/18 at 13:00; Stop 03/29/18 at 14:23; Status DC Vancomycin HCl 2 gm/Sodium Chloride 500 ml @ 250 mls/hr Q12H IV ; Start at 13:00; Stop 03/29/18 at 14:23; Status DC Piperacillin Sod/ Tazobactam Sod 4.5 gm/Sodium Chloride 100 ml @ 200 mls/hr Q6HRS IV Last administered on 03/30/18at 05:09; Start 03/29/18 at 15:00; Stop at 12:35; Status DC Piperacillin Sod/ Tazobactam Sod (Zosyn Per Pharmacy) 1 each PRN DAILY PRN MC SEE COMMENTS; Start 03/29/18 at 13:00; Stop 03/30/18 at 12:36; Status DC Apixaban (Eliquis) 10 mg BID PO Last administered on 03/29/18at 21:35; Start at 21:00; Stop 03/30/18 at 12:37; Status DC Insulin Human Lispro (HumaLOG) 0-9 UNITS TIDWMEALS SQ Last administered on 04/03at 08:13; Start 03/29/18 at 17:00 Dextrose (Dextrose 50%-Water Syringe) 12.5 gm PRN Q15MIN PRN IV SEE COMMENTS; Start 03/29/18 at 13:00 Sodium Chloride 1,000 ml @ 75 mls/hr [id number] IV Last administered on at 05:16; Start 03/29/18 at 13:00; Stop 04/01/18 at 12:39; Status DC Albuterol Sulfate (Ventolin Neb Soln) 2.5 mg PRN Q4HRS PRN NEB SHORTNESS OF BREATH; Start 03/29/18 at 13:00 Labetalol HCl (Normodyne Iv Push) 20 mg PRN Q2HR PRN IVP HYPERTENSION, SEE COMMENTS Last administered on 03/30/18at 21:05; Start 03/29/18 at 13:00 Atorvastatin Calcium (Lipitor) 40 mg QHS PO Last administered on 04/02/18at 20: 27; Start 03/30/18 at 21:00 Aspirin (Ecotrin) 325 mg DAILYWBKFT PO Last administered on 04/03/18at 08:09; Start 03/30/18 at 13:00 Apixaban (Eliquis) 10 mg BID PO Last administered on 04/03/18at 08:10; Start at 09:00 Amlodipine Besylate (Norvasc) 2.5 mg DAILY PO Last administered on 04/01/18at 08 :18; Start 03/31/18 at 10:00; Stop 04/01/18 at 12:38; Status DC Amlodipine Besylate (Norvasc) 5 mg DAILY PO ; Start 04/01/18 at 12:45; Stop at 12:48; Status DC Amlodipine Besylate (Norvasc) 5 mg 1X ONCE PO Last administered on 04/01/18at 12:52; Start 04/01/18 at 12:45; Stop 04/01/18 at 12:46; Status DC Amlodipine Besylate (Norvasc) 5 mg DAILY PO Last administered on 04/03/18at 08: 10; Start 04/02/18 at 09:00 Info (Anti-Coagulation Monitoring By Pharmacy) 1 each PRN DAILY PRN MC SEE COMMENTS Last administered on 04/02/18at 14:37; Start 04/02/18 at 14:45 Active Scripts Active Aspirin Ec (Aspirin) 325 Mg Tablet.dr 325 Mg PO DAILYWBKFT 30 Days Amlodipine Besylate 5 Mg Tablet 5 Mg PO DAILY 30 Days Atorvastatin Calcium 40 Mg Tablet 40 Mg PO QHS 30 Days Reported Benadryl (Diphenhydramine Hcl) 25 Mg Capsule 50 Mg PO HS Clonidine Tts-1 (Clonidine) 1 Each Patch.tdwk 1 Patch TD WEEKLY Ondansetron Odt (Ondansetron) 4 Mg Tab.rapdis 4 Mg PO BID PRN Losartan Potassium 50 Mg Tablet 50 Mg PO DAILY Lidocaine 1 Each Adh..patch 1 Each TP DAILY Culturelle (Lactobacillus Rhamnosus Gg) 1 Each Cap.sprink 1 Each PO BID Culturelle Capsule (L. Rhamnosus GG/Inulin) 1 Each Cap.sprink 1 Each PO Ferrous Sulfate 325 Mg Tablet 1 Tab PO DAILY Vitals/I & O Vital Sign - Last 24 Hours 04/02/18 04/02/18 04/02/18 04/02/18 15:00 19:00 19:15 23:00 Temp 97.9 98.1 98.1 97.9 98.1 98.1 Pulse 72 78 64 Resp 20 18 16 B/P (MAP) 187/66 (106) 163/79 (107) 162/69 (100) Pulse Ox 95 94 95 O2 Delivery Room Air Room Air Room Air Room Air 04/03/18 04/03/18 04/03/18 04/03/18 03:00 07:00 08:09 08:10 Temp 97.9 96.4 97.9 96.4 Pulse 67 69 69 69 Resp 18 16 B/P (MAP) 173/76 (108) 154/68 (96) 154/68 154/68 Pulse Ox 97 95 O2 Delivery Room Air Room Air Intake and Output 04/02/18 04/02/18 04/03/18 15:00 23:00 07:00 Intake Total 360 ml 90 ml 250 ml Balance 360 ml 90 ml 250 ml GEORGETTE GOOD MD Apr 03, 2018 09:59
[2018-04-03 11:00] VITALS: BP 142/69
--- NOTE | 2018-04-03 11:32 | PDOC ---
PROGRESS NOTES Chief Complaint Chief Complaint Subacute right frontal stroke w weakness, CVA syndrome, confusion yesterday, better today morbid Obesity, BMI 52 Pulmonary embolism Left-sided weakness, CVA syndrome, large abd hernia, chronic SIRS, was treated as sepsis syndrome, will wean off abx, no source found DM2, with ketoacidosis on admit, History of Present Illness History of Present Illness left sided hemiplegia, improving subacute stroke on MRI, mult areas noted on neuro noted PT OT - pt improving, but unable to safely discharged to home Discussed with administration and LOS-they are looking into avenues to help with weakness/physical therapy needs Plan: As above Vitals Vitals Vital Signs Date Time Temp Pulse Resp B/P (MAP) Pulse Ox O2 Delivery O2 Flow Rate FiO2 04/03/18 08:10 69 154/68 04/03/18 08:00 Nasal Cannula 2.0 04/03/18 07:00 96.4 16 95 96.4 Physical Exam Physical Exam GENERAL: Alert, awake, somewhat confused female in no acute distress, cooperative, answers a few questions in yes and no. HEENT: Normocephalic, atraumatic, anicteric. No thrush. NECK: Supple. LUNGS: Clear bilaterally. HEART: S1, S2. ABDOMEN: Soft, obese. Bowel sounds present. Ventral hernia reducible. No tenderness. EXTREMITIES: No cyanosis, no clubbing. NEUROLOGIC: Alert, awake. Normal speech. PSYCHIATRIC: Normal affect. Cooperative. DERMATOLOGIC: No generalized rash. General: Oriented X3, Cooperative, No acute distress, Other (no dysarthria appreciable) Heart: Regular rate, Normal S1, Normal S2 Lungs: Clear Abdomen: Normal bowel sounds, Soft Extremities: No clubbing, No cyanosis Skin: No rashes, No breakdown Labs LABS Laboratory Tests Test 04/02/18 13:14 04/02/18 17:29 04/02/18 20:33 04/03/18 07:31 Glucose (Fingerstick) 279 mg/dL (70-99) 171 mg/dL (70-99) 155 mg/dL (70-99) 152 mg/dL (70-99) Review of Systems Review of Systems Some generalized weakness, no dysphagia, no slurred peaches otherwise rest of 14 point ROS negative Comment Review of Relevant I have reviewed the following items rex (where applicable) has been applied. Labs Laboratory Tests Test 04/01/18 16:35 04/01/18 20:36 04/02/18 08:24 04/02/18 13:14 Glucose (Fingerstick) 181 mg/dL (70-99) 222 mg/dL (70-99) 182 mg/dL (70-99) 279 mg/dL (70-99) Test 04/02/18 17:29 04/02/18 20:33 04/03/18 07:31 Glucose (Fingerstick) 171 mg/dL (70-99) 155 mg/dL (70-99) 152 mg/dL (70-99) Laboratory Tests Test 04/02/18 13:14 04/02/18 17:29 04/02/18 20:33 04/03/18 07:31 Glucose (Fingerstick) 279 mg/dL (70-99) 171 mg/dL (70-99) 155 mg/dL (70-99) 152 mg/dL (70-99) Microbiology 03/29/18 Blood Culture - Preliminary, Resulted NO GROWTH AFTER 4 DAYS Medications Current Medications Acetaminophen (Tylenol) 650 mg PRN Q6HRS PRN PO FEVER; Start 03/29/18 at 12:00 Ondansetron HCl (Zofran) 4 mg PRN Q6HRS PRN IV NAUSEA/VOMITING; Start 03/29/18 at 12:00 Morphine Sulfate (Morphine Sulfate) 2 mg PRN Q2HR PRN IV MODERATE TO SEVERE PAIN; Start 03/29/18 at 12:00 Tramadol HCl (Ultram) 50 mg PRN Q6HRS PRN PO MILD TO MODERATE PAIN; Start 03/29 at 12:00 Docusate Sodium (Colace) 100 mg PRN DAILY PRN PO CONSTIPATION; Start 03/29/18 at 12:00 Clonidine HCl (Catapres Tts-1) 1 patch We TD ; Start 04/04/18 at 09:00 Ferrous Sulfate (Feosol) 325 mg DAILY08 PO Last administered on 04/03/18at 08:09 ; Start 03/30/18 at 08:00 Losartan Potassium (Cozaar) 50 mg DAILY PO Last administered on 04/03/18at 08:09 ; Start 03/30/18 at 09:00 Lidocaine (Lidoderm) 1 patch DAILY TD Last administered on 04/03/18at 08:10; Start 03/29/18 at 15:00 Vancomycin HCl (Vanco Per Pharmacy) 1 each PRN DAILY PRN MC SEE COMMENTS; Start 03/29/18 at 13:00; Stop 03/29/18 at 14:23; Status DC Vancomycin HCl 2 gm/Sodium Chloride 500 ml @ 250 mls/hr Q12H IV ; Start at 13:00; Stop 03/29/18 at 14:23; Status DC Piperacillin Sod/ Tazobactam Sod 4.5 gm/Sodium Chloride 100 ml @ 200 mls/hr Q6HRS IV Last administered on 03/30/18at 05:09; Start 03/29/18 at 15:00; Stop at 12:35; Status DC Piperacillin Sod/ Tazobactam Sod (Zosyn Per Pharmacy) 1 each PRN DAILY PRN MC SEE COMMENTS; Start 03/29/18 at 13:00; Stop 03/30/18 at 12:36; Status DC Apixaban (Eliquis) 10 mg BID PO Last administered on 03/29/18at 21:35; Start at 21:00; Stop 03/30/18 at 12:37; Status DC Insulin Human Lispro (HumaLOG) 0-9 UNITS TIDWMEALS SQ Last administered on 04/03at 08:13; Start 03/29/18 at 17:00 Dextrose (Dextrose 50%-Water Syringe) 12.5 gm PRN Q15MIN PRN IV SEE COMMENTS; Start 03/29/18 at 13:00 Sodium Chloride 1,000 ml @ 75 mls/hr [id number] IV Last administered on at 05:16; Start 03/29/18 at 13:00; Stop 04/01/18 at 12:39; Status DC Albuterol Sulfate (Ventolin Neb Soln) 2.5 mg PRN Q4HRS PRN NEB SHORTNESS OF BREATH; Start 03/29/18 at 13:00 Labetalol HCl (Normodyne Iv Push) 20 mg PRN Q2HR PRN IVP HYPERTENSION, SEE COMMENTS Last administered on 03/30/18at 21:05; Start 03/29/18 at 13:00 Atorvastatin Calcium (Lipitor) 40 mg QHS PO Last administered on 04/02/18at 20: 27; Start 03/30/18 at 21:00 Aspirin (Ecotrin) 325 mg DAILYWBKFT PO Last administered on 04/03/18at 08:09; Start 03/30/18 at 13:00 Apixaban (Eliquis) 10 mg BID PO Last administered on 04/03/18at 08:10; Start at 09:00 Amlodipine Besylate (Norvasc) 2.5 mg DAILY PO Last administered on 04/01/18at 08 :18; Start 03/31/18 at 10:00; Stop 04/01/18 at 12:38; Status DC Amlodipine Besylate (Norvasc) 5 mg DAILY PO ; Start 04/01/18 at 12:45; Stop at 12:48; Status DC Amlodipine Besylate (Norvasc) 5 mg 1X ONCE PO Last administered on 04/01/18at 12:52; Start 04/01/18 at 12:45; Stop 04/01/18 at 12:46; Status DC Amlodipine Besylate (Norvasc) 5 mg DAILY PO Last administered on 04/03/18at 08: 10; Start 04/02/18 at 09:00 Info (Anti-Coagulation Monitoring By Pharmacy) 1 each PRN DAILY PRN MC SEE COMMENTS Last administered on 04/02/18at 14:37; Start 04/02/18 at 14:45 Active Scripts Active Aspirin Ec (Aspirin) 325 Mg Tablet.dr 325 Mg PO DAILYWBKFT 30 Days Amlodipine Besylate 5 Mg Tablet 5 Mg PO DAILY 30 Days Atorvastatin Calcium 40 Mg Tablet 40 Mg PO QHS 30 Days Reported Benadryl (Diphenhydramine Hcl) 25 Mg Capsule 50 Mg PO HS Clonidine Tts-1 (Clonidine) 1 Each Patch.tdwk 1 Patch TD WEEKLY Ondansetron Odt (Ondansetron) 4 Mg Tab.rapdis 4 Mg PO BID PRN Losartan Potassium 50 Mg Tablet 50 Mg PO DAILY Lidocaine 1 Each Adh..patch 1 Each TP DAILY Culturelle (Lactobacillus Rhamnosus Gg) 1 Each Cap.sprink 1 Each PO BID Culturelle Capsule (L. Rhamnosus GG/Inulin) 1 Each Cap.sprink 1 Each PO Ferrous Sulfate 325 Mg Tablet 1 Tab PO DAILY Vitals/I & O Vital Sign - Last 24 Hours 904/02/18 04/02/18 04/02/18 15:00 19:00 19:15 23:00 Temp 97.9 98.1 98.1 97.9 98.1 98.1 Pulse 72 78 64 Resp 20 18 16 B/P (MAP) 187/66 (106) 163/79 (107) 162/69 (100) Pulse Ox 95 94 95 O2 Delivery Room Air Room Air Room Air Room Air 04/03/18 04/03/18 04/03/18 04/03/18 03:00 07:00 08:00 08:09 Temp 97.9 96.4 97.9 96.4 Pulse 67 69 69 Resp 18 16 B/P (MAP) 173/76 (108) 154/68 (96) 154/68 Pulse Ox 97 95 O2 Delivery Room Air Room Air Nasal Cannula O2 Flow Rate 2.0 04/03/18 08:10 Pulse 69 B/P (MAP) 154/68 Intake and Output 04/02/18 04/02/18 04/03/18 15:00 23:00 07:00 Intake Total 360 ml 90 ml 250 ml Balance 360 ml 90 ml 250 ml RADHA MIRANDA MD Apr 03, 2018 11:32
[2018-04-03] MEDS: ANTI-COAG MONITOR BY PHARMACY. MC PRN (14:19)
[2018-04-03 15:00] VITALS: BP 130/70
[2018-04-03 19:00] VITALS: BP 163/76
[2018-04-03] MEDS: ATORVASTATIN CALCIUM 40 MG TABLET. PO SCH (20:25)
[2018-04-03 23:00] VITALS: BP 151/67
[2018-04-04 03:00] VITALS: BP 136/76
[2018-04-04 07:00] VITALS: BP 180/66
[2018-04-04] MEDS: INSULIN LISPRO 300 UNITS/3 ML INSULN.PEN. SQ SCH ×3 (08:00→17:54)
[2018-04-04] MEDS: ASPIRIN ENTERIC COATED 325 MG TABLET.DR. PO SCH (08:23)
[2018-04-04] MEDS: amLODIPine BESYLATE 5 MG TABLET PO SCH (08:24)
[2018-04-04] MEDS: FERROUS SULFATE 325 MG TABLET. PO SCH (08:24)
[2018-04-04] MEDS: APIXABAN 5 MG TABLET. PO SCH ×2 (08:24→21:20)
[2018-04-04] MEDS: LOSARTAN POTASSIUM 50 MG TABLET. PO SCH (08:25)
[2018-04-04] MEDS: LIDOCAINE (700MG/PATCH) PATCH. TD SCH (08:25)
[2018-04-04] MEDS ORDERED: cloNIDine TTS-1 1 PATCH PATCH.TDWK TD SCH (09:00)
--- NOTE | 2018-04-04 10:02 | PDOC ---
Provider Note Provider Note STill waiting for free rehab approval Otherwise, stable - no med needs, just PT needs Rx on chart\ OK to dc later when accepted at rehab dw RN RADHA Manzo MD Apr 04, 2018 10:02
[2018-04-04 11:00] VITALS: BP 191/79
--- NOTE | 2018-04-04 11:51 | DISCH ---
DISCHARGE DISCHARGE INFORMATION: CONDITION ON DISCHARGE: Stable CODE STATUS: Code Status: Full INTERMEDIATE: SNF STAY <30 DAYS: Yes HOSPICE: HOSPICE: No HOSPICE EVAL & TREAT: No LTAC: ADMIT TO LTAC: No POST DISCHARGE ORDERS: ACTIVITY ORDERS: Activity as tolerated WEIGHT BEARING STATUS: No restrictions DIET AFTER DISCHARGE: Regular CHECKS AFTER DISCHARGE: CHECKS AFTER DISCHARGE: Check blood press - daily TREATMENT/EQUIPMENT ORDERS: ADAPTIVE EQUIPMENT NEEDED: [employer] Physical Therapy For: Evalulation/Treatment Occupational Therapy For: Evaluation/Treatment Speech Language Pathology For: Swallow Cognition DISCHARGE MEDICATIONS: Home Meds Active Scripts Aspirin (ASPIRIN EC) 325 Mg Tablet.dr, 325 MG PO DAILYWBKFT for 30 Days, #30 TAB.SR Prov:RADHA MIRANDA MD 04/02/18 Amlodipine Besylate (AMLODIPINE BESYLATE) 5 Mg Tablet, 5 MG PO DAILY for 30 Days , #30 TAB Prov:RADHA MIRANDA MD 04/02/18 Atorvastatin Calcium (ATORVASTATIN CALCIUM) 40 Mg Tablet, 40 MG PO QHS for 30 Days, #30 TAB Prov:RADHA MIRANDA MD 04/02/18 Reported Medications Diphenhydramine Hcl (BENADRYL) 25 Mg Capsule, 50 MG PO HS, CAP 03/29/18 Clonidine (CLONIDINE TTS-1) 1 Each Patch.tdwk, 1 PATCH TD WEEKLY, PATCH 03/29/18 Ondansetron (ONDANSETRON ODT) 4 Mg Tab.rapdis, 4 MG PO BID PRN for NAUSEA/ VOMITING, TAB 03/29/18 Losartan Potassium (LOSARTAN POTASSIUM) 50 Mg Tablet, 50 MG PO DAILY, TAB 03/29/18 Lidocaine (Lidocaine) 1 Each Adh..patch, 1 EACH TP DAILY, PATCH 03/29/18 Lactobacillus Rhamnosus Gg (CULTURELLE) 1 Each Cap.sprink, 1 EACH PO BID, CAP 03/29/18 L. Rhamnosus GG/Inulin (Culturelle Capsule) 1 Each Cap.sprink, 1 EACH PO, CAP 03/29/18 Ferrous Sulfate (FERROUS SULFATE) 325 Mg Tablet, 1 TAB PO DAILY, #30 TAB 3 Refills 03/29/18 RADHA MIRANDA MD Apr 04, 2018 11:51
--- NOTE | 2018-04-04 12:33 | PDOC ---
PROGRESS NOTES Assessment Subacute right frontal, oh radiata, BG, insular, and external capsule infracts, lacunar versus embolic etiology. Metabolic encephalopathy. Old bilateral hemisphere lacunar infarcts. Diabetic neuropathy Plan Okay for discharge to snf Continue Eliquis. Continue Lipitor 40 mg HS. Treat medical diseases. Control hyperglycemia. OT/PT. Weight reduction. Subjective No complaints Objective Vital Signs Date Time Temp Pulse Resp B/P (MAP) Pulse Ox O2 Delivery O2 Flow Rate FiO2 04/04/18 08:25 63 180/66 04/04/18 08:17 95 Nasal Cannula 2.0 04/04/18 07:00 97.5 18 97.5 Intake and Output 04/04/18 07:00 Intake Total 750 ml Balance 750 ml Intake Oral 750 ml PHYSICAL EXAM Alert. Oriented to time, place and person. PERRL. EOMI. CN: no focal findings. Muscle tone: normal. Muscle strength: 4/5 DTR: 1+ Plantar reflex: flexor Gait: not examined in bed. Sensory exam: stocking sensory loss. No cerebellar signs elicited. Review of Relevant I have reviewed the following items rex (where applicable) has been applied. Labs Laboratory Tests Test 04/02/18 13:14 04/02/18 17:29 04/02/18 20:33 04/03/18 07:31 Glucose (Fingerstick) 279 mg/dL (70-99) 171 mg/dL (70-99) 155 mg/dL (70-99) 152 mg/dL (70-99) Test 04/03/18 11:49 04/03/18 16:11 04/03/18 20:29 04/04/18 07:31 Glucose (Fingerstick) 240 mg/dL (70-99) 224 mg/dL (70-99) 185 mg/dL (70-99) 144 mg/dL (70-99) Laboratory Tests Test 04/03/18 16:11 04/03/18 20:29 04/04/18 07:31 Glucose (Fingerstick) 224 mg/dL (70-99) 185 mg/dL (70-99) 144 mg/dL (70-99) Microbiology 03/29/18 Blood Culture - Final, Complete NO GROWTH AFTER 5 DAYS Medications Current Medications Acetaminophen (Tylenol) 650 mg PRN Q6HRS PRN PO FEVER; Start 03/29/18 at 12:00 Ondansetron HCl (Zofran) 4 mg PRN Q6HRS PRN IV NAUSEA/VOMITING; Start 03/29/18 at 12:00 Morphine Sulfate (Morphine Sulfate) 2 mg PRN Q2HR PRN IV MODERATE TO SEVERE PAIN; Start 03/29/18 at 12:00 Tramadol HCl (Ultram) 50 mg PRN Q6HRS PRN PO MILD TO MODERATE PAIN; Start 03/29 at 12:00 Docusate Sodium (Colace) 100 mg PRN DAILY PRN PO CONSTIPATION; Start 03/29/18 at 12:00 Clonidine HCl (Catapres Tts-1) 1 patch We TD Last administered on 04/04/18at 08: 26; Start 04/04/18 at 09:00 Ferrous Sulfate (Feosol) 325 mg DAILY08 PO Last administered on 04/04/18at 08:24 ; Start 03/30/18 at 08:00 Losartan Potassium (Cozaar) 50 mg DAILY PO Last administered on 04/04/18at 08:25 ; Start 03/30/18 at 09:00 Lidocaine (Lidoderm) 1 patch DAILY TD Last administered on 04/04/18at 08:25; Start 03/29/18 at 15:00 Vancomycin HCl (Vanco Per Pharmacy) 1 each PRN DAILY PRN MC SEE COMMENTS; Start 03/29/18 at 13:00; Stop 03/29/18 at 14:23; Status DC Vancomycin HCl 2 gm/Sodium Chloride 500 ml @ 250 mls/hr Q12H IV ; Start at 13:00; Stop 03/29/18 at 14:23; Status DC Piperacillin Sod/ Tazobactam Sod 4.5 gm/Sodium Chloride 100 ml @ 200 mls/hr Q6HRS IV Last administered on 03/30/18at 05:09; Start 03/29/18 at 15:00; Stop at 12:35; Status DC Piperacillin Sod/ Tazobactam Sod (Zosyn Per Pharmacy) 1 each PRN DAILY PRN MC SEE COMMENTS; Start 03/29/18 at 13:00; Stop 03/30/18 at 12:36; Status DC Apixaban (Eliquis) 10 mg BID PO Last administered on 03/29/18at 21:35; Start at 21:00; Stop 03/30/18 at 12:37; Status DC Insulin Human Lispro (HumaLOG) 0-9 UNITS TIDWMEALS SQ Last administered on 04/03at 17:09; Start 03/29/18 at 17:00 Dextrose (Dextrose 50%-Water Syringe) 12.5 gm PRN Q15MIN PRN IV SEE COMMENTS; Start 03/29/18 at 13:00 Sodium Chloride 1,000 ml @ 75 mls/hr [id number] IV Last administered on at 05:16; Start 03/29/18 at 13:00; Stop 04/01/18 at 12:39; Status DC Albuterol Sulfate (Ventolin Neb Soln) 2.5 mg PRN Q4HRS PRN NEB SHORTNESS OF BREATH; Start 03/29/18 at 13:00 Labetalol HCl (Normodyne Iv Push) 20 mg PRN Q2HR PRN IVP HYPERTENSION, SEE COMMENTS Last administered on 03/30/18at 21:05; Start 03/29/18 at 13:00 Atorvastatin Calcium (Lipitor) 40 mg QHS PO Last administered on 04/03/18at 20: 25; Start 03/30/18 at 21:00 Aspirin (Ecotrin) 325 mg DAILYWBKFT PO Last administered on 04/04/18at 08:23; Start 03/30/18 at 13:00 Apixaban (Eliquis) 10 mg BID PO Last administered on 04/04/18at 08:24; Start at 09:00 Amlodipine Besylate (Norvasc) 2.5 mg DAILY PO Last administered on 04/01/18at 08 :18; Start 03/31/18 at 10:00; Stop 04/01/18 at 12:38; Status DC Amlodipine Besylate (Norvasc) 5 mg DAILY PO ; Start 04/01/18 at 12:45; Stop at 12:48; Status DC Amlodipine Besylate (Norvasc) 5 mg 1X ONCE PO Last administered on 04/01/18at 12:52; Start 04/01/18 at 12:45; Stop 04/01/18 at 12:46; Status DC Amlodipine Besylate (Norvasc) 5 mg DAILY PO Last administered on 04/04/18at 08: 24; Start 04/02/18 at 09:00 Info (Anti-Coagulation Monitoring By Pharmacy) 1 each PRN DAILY PRN MC SEE COMMENTS Last administered on 04/03/18at 14:19; Start 04/02/18 at 14:45 Active Scripts Active Aspirin Ec (Aspirin) 325 Mg Tablet.dr 325 Mg PO DAILYWBKFT 30 Days Amlodipine Besylate 5 Mg Tablet 5 Mg PO DAILY 30 Days Atorvastatin Calcium 40 Mg Tablet 40 Mg PO QHS 30 Days Reported Benadryl (Diphenhydramine Hcl) 25 Mg Capsule 50 Mg PO HS Clonidine Tts-1 (Clonidine) 1 Each Patch.tdwk 1 Patch TD WEEKLY Ondansetron Odt (Ondansetron) 4 Mg Tab.rapdis 4 Mg PO BID PRN Losartan Potassium 50 Mg Tablet 50 Mg PO DAILY Lidocaine 1 Each Adh..patch 1 Each TP DAILY Culturelle (Lactobacillus Rhamnosus Gg) 1 Each Cap.sprink 1 Each PO BID Culturelle Capsule (L. Rhamnosus GG/Inulin) 1 Each Cap.sprink 1 Each PO Ferrous Sulfate 325 Mg Tablet 1 Tab PO DAILY Vitals/I & O Vital Sign - Last 24 Hours 04/03/18 04/03/18 04/03/18 04/03/18 15:00 19:00 19:52 23:00 Temp 98.8 97.9 97.9 98.8 97.9 97.9 Pulse 95 84 79 Resp 18 18 18 B/P (MAP) 130/70 (90) 163/76 (105) 151/67 (95) Pulse Ox 94 94 93 O2 Delivery Room Air Room Air Room Air Room Air O2 Flow Rate 2.0 04/04/18 04/04/18 04/04/18 04/04/18 03:00 07:00 08:00 08:17 Temp 97.9 97.5 97.9 97.5 Pulse 75 63 Resp 18 18 B/P (MAP) 136/76 (96) 180/66 (104) Pulse Ox 95 93 95 O2 Delivery Room Air Room Air Room Air Nasal Cannula O2 Flow Rate 2.0 2.0 04/04/18 04/04/18 08:24 08:25 Pulse 63 63 B/P (MAP) 180/66 180/66 Intake and Output 04/03/18 04/03/18 04/04/18 15:00 23:00 07:00 Intake Total 210 ml 300 ml 240 ml Balance 210 ml 300 ml 240 ml GEORGETTE GOOD MD Apr 04, 2018 12:33
[2018-04-04 15:00] VITALS: BP 131/68
[2018-04-04] MEDS: ANTI-COAG MONITOR BY PHARMACY. MC PRN (16:49)
[2018-04-04 19:00] VITALS: BP 140/63
[2018-04-04] MEDS: ATORVASTATIN CALCIUM 40 MG TABLET. PO SCH (21:20)
[2018-04-04 23:00] VITALS: BP 156/76
[2018-04-05 03:00] VITALS: BP 144/79
[2018-04-05 07:00] VITALS: BP 149/81
[2018-04-05] MEDS: ASPIRIN ENTERIC COATED 325 MG TABLET.DR. PO SCH (08:32)
[2018-04-05] MEDS: INSULIN LISPRO 300 UNITS/3 ML INSULN.PEN. SQ SCH (08:32)
[2018-04-05] MEDS: APIXABAN 5 MG TABLET. PO SCH (08:33)
[2018-04-05] MEDS: FERROUS SULFATE 325 MG TABLET. PO SCH (08:33)
[2018-04-05] MEDS: LIDOCAINE (700MG/PATCH) PATCH. TD SCH (08:35)
[2018-04-05] MEDS: LOSARTAN POTASSIUM 50 MG TABLET. PO SCH (08:37)
[2018-04-05 08:38] VITALS: BP 149/81
[2018-04-05] MEDS: amLODIPine BESYLATE 5 MG TABLET PO SCH (08:38)
--- NOTE | 2018-04-05 10:50 | PDOC ---
PROGRESS NOTES Chief Complaint Chief Complaint Subacute right frontal stroke w weakness, CVA syndrome, confusion morbid Obesity, BMI 52 Pulmonary embolism Left-sided weakness, CVA syndrome, large abd hernia, chronic SIRS, was treated as sepsis syndrome, will wean off abx, no source found DM2, with ketoacidosis on admit, left this AM before seen History of Present Illness History of Present Illness left sided hemiplegia, improving subacute stroke on MRI, mult areas noted on neuro noted PT OT - pt improving, but unable to safely discharged to home Discussed with administration and LOS-they are looking into avenues to help with weakness/physical therapy needs Plan: As above Vitals Vitals Vital Signs Date Time Temp Pulse Resp B/P (MAP) Pulse Ox O2 Delivery O2 Flow Rate FiO2 04/05/18 08:38 78 149/81 04/05/18 07:00 97.9 18 90 97.9 04/05/18 03:00 Room Air 04/04/18 08:17 2.0 Physical Exam Physical Exam GENERAL: Alert, awake, somewhat confused female in no acute distress, cooperative, answers a few questions in yes and no. HEENT: Normocephalic, atraumatic, anicteric. No thrush. NECK: Supple. LUNGS: Clear bilaterally. HEART: S1, S2. ABDOMEN: Soft, obese. Bowel sounds present. Ventral hernia reducible. No tenderness. EXTREMITIES: No cyanosis, no clubbing. NEUROLOGIC: Alert, awake. Normal speech. PSYCHIATRIC: Normal affect. Cooperative. DERMATOLOGIC: No generalized rash. General: Oriented X3, Cooperative, No acute distress, Other (no dysarthria appreciable) Heart: Regular rate, Normal S1, Normal S2 Lungs: Clear Abdomen: Normal bowel sounds, Soft Extremities: No clubbing, No cyanosis Skin: No rashes, No breakdown Labs LABS Laboratory Tests Test 04/04/18 12:37 04/04/18 17:26 04/04/18 21:18 04/05/18 07:41 Glucose (Fingerstick) 228 mg/dL (70-99) 209 mg/dL (70-99) 170 mg/dL (70-99) 146 mg/dL (70-99) Comment Review of Relevant I have reviewed the following items rex (where applicable) has been applied. Labs Laboratory Tests Test 04/03/18 11:49 04/03/18 16:11 04/03/18 20:29 04/04/18 07:31 Glucose (Fingerstick) 240 mg/dL (70-99) 224 mg/dL (70-99) 185 mg/dL (70-99) 144 mg/dL (70-99) Test 04/04/18 12:37 04/04/18 17:26 04/04/18 21:18 04/05/18 07:41 Glucose (Fingerstick) 228 mg/dL (70-99) 209 mg/dL (70-99) 170 mg/dL (70-99) 146 mg/dL (70-99) Laboratory Tests Test 04/04/18 12:37 04/04/18 17:26 04/04/18 21:18 04/05/18 07:41 Glucose (Fingerstick) 228 mg/dL (70-99) 209 mg/dL (70-99) 170 mg/dL (70-99) 146 mg/dL (70-99) Microbiology 03/29/18 Blood Culture - Final, Complete NO GROWTH AFTER 5 DAYS Medications Current Medications Acetaminophen (Tylenol) 650 mg PRN Q6HRS PRN PO FEVER; Start 03/29/18 at 12:00 Ondansetron HCl (Zofran) 4 mg PRN Q6HRS PRN IV NAUSEA/VOMITING; Start 03/29/18 at 12:00 Morphine Sulfate (Morphine Sulfate) 2 mg PRN Q2HR PRN IV MODERATE TO SEVERE PAIN; Start 03/29/18 at 12:00 Tramadol HCl (Ultram) 50 mg PRN Q6HRS PRN PO MILD TO MODERATE PAIN; Start 03/29 at 12:00 Docusate Sodium (Colace) 100 mg PRN DAILY PRN PO CONSTIPATION; Start 03/29/18 at 12:00 Clonidine HCl (Catapres Tts-1) 1 patch We TD Last administered on 04/04/18at 08: 26; Start 04/04/18 at 09:00 Ferrous Sulfate (Feosol) 325 mg DAILY08 PO Last administered on 04/05/18at 08:33 ; Start 03/30/18 at 08:00 Losartan Potassium (Cozaar) 50 mg DAILY PO Last administered on 04/05/18at 08:37 ; Start 03/30/18 at 09:00 Lidocaine (Lidoderm) 1 patch DAILY TD Last administered on 04/05/18at 08:35; Start 03/29/18 at 15:00 Vancomycin HCl (Vanco Per Pharmacy) 1 each PRN DAILY PRN MC SEE COMMENTS; Start 03/29/18 at 13:00; Stop 03/29/18 at 14:23; Status DC Vancomycin HCl 2 gm/Sodium Chloride 500 ml @ 250 mls/hr Q12H IV ; Start at 13:00; Stop 03/29/18 at 14:23; Status DC Piperacillin Sod/ Tazobactam Sod 4.5 gm/Sodium Chloride 100 ml @ 200 mls/hr Q6HRS IV Last administered on 03/30/18at 05:09; Start 03/29/18 at 15:00; Stop at 12:35; Status DC Piperacillin Sod/ Tazobactam Sod (Zosyn Per Pharmacy) 1 each PRN DAILY PRN MC SEE COMMENTS; Start 03/29/18 at 13:00; Stop 03/30/18 at 12:36; Status DC Apixaban (Eliquis) 10 mg BID PO Last administered on 03/29/18at 21:35; Start at 21:00; Stop 03/30/18 at 12:37; Status DC Insulin Human Lispro (HumaLOG) 0-9 UNITS TIDWMEALS SQ Last administered on 04/04at 17:54; Start 03/29/18 at 17:00 Dextrose (Dextrose 50%-Water Syringe) 12.5 gm PRN Q15MIN PRN IV SEE COMMENTS; Start 03/29/18 at 13:00 Sodium Chloride 1,000 ml @ 75 mls/hr [id number] IV Last administered on at 05:16; Start 03/29/18 at 13:00; Stop 04/01/18 at 12:39; Status DC Albuterol Sulfate (Ventolin Neb Soln) 2.5 mg PRN Q4HRS PRN NEB SHORTNESS OF BREATH; Start 03/29/18 at 13:00 Labetalol HCl (Normodyne Iv Push) 20 mg PRN Q2HR PRN IVP HYPERTENSION, SEE COMMENTS Last administered on 03/30/18at 21:05; Start 03/29/18 at 13:00 Atorvastatin Calcium (Lipitor) 40 mg QHS PO Last administered on 04/04/18at 21: 20; Start 03/30/18 at 21:00 Aspirin (Ecotrin) 325 mg DAILYWBKFT PO Last administered on 04/05/18at 08:32; Start 03/30/18 at 13:00 Apixaban (Eliquis) 10 mg BID PO Last administered on 04/05/18at 08:33; Start at 09:00 Amlodipine Besylate (Norvasc) 2.5 mg DAILY PO Last administered on 04/01/18at 08 :18; Start 03/31/18 at 10:00; Stop 04/01/18 at 12:38; Status DC Amlodipine Besylate (Norvasc) 5 mg DAILY PO ; Start 04/01/18 at 12:45; Stop at 12:48; Status DC Amlodipine Besylate (Norvasc) 5 mg 1X ONCE PO Last administered on 04/01/18at 12:52; Start 04/01/18 at 12:45; Stop 04/01/18 at 12:46; Status DC Amlodipine Besylate (Norvasc) 5 mg DAILY PO Last administered on 04/05/18at 08: 38; Start 04/02/18 at 09:00 Info (Anti-Coagulation Monitoring By Pharmacy) 1 each PRN DAILY PRN MC SEE COMMENTS Last administered on 04/04/18at 16:49; Start 04/02/18 at 14:45 Active Scripts Active Aspirin Ec (Aspirin) 325 Mg Tablet.dr 325 Mg PO DAILYWBKFT 30 Days Amlodipine Besylate 5 Mg Tablet 5 Mg PO DAILY 30 Days Atorvastatin Calcium 40 Mg Tablet 40 Mg PO QHS 30 Days Reported Benadryl (Diphenhydramine Hcl) 25 Mg Capsule 50 Mg PO HS Clonidine Tts-1 (Clonidine) 1 Each Patch.tdwk 1 Patch TD WEEKLY Ondansetron Odt (Ondansetron) 4 Mg Tab.rapdis 4 Mg PO BID PRN Losartan Potassium 50 Mg Tablet 50 Mg PO DAILY Lidocaine 1 Each Adh..patch 1 Each TP DAILY Culturelle (Lactobacillus Rhamnosus Gg) 1 Each Cap.sprink 1 Each PO BID Culturelle Capsule (L. Rhamnosus GG/Inulin) 1 Each Cap.sprink 1 Each PO Ferrous Sulfate 325 Mg Tablet 1 Tab PO DAILY Vitals/I & O Vital Sign - Last 24 Hours 04/04/18 04/04/18 04/04/18 04/04/18 11:00 15:00 19:00 21:32 Temp 97.9 97.9 98.0 97.9 97.9 98.0 Pulse 82 88 78 Resp 18 B/P (MAP) 191/79 (116) 131/68 (89) 140/63 (88) Pulse Ox 91 92 93 O2 Delivery Room Air Room Air Room Air Room Air 04/04/18 04/05/18 04/05/18 04/05/18 23:00 03:00 07:00 08:37 Temp 97.9 97.9 97.9 97.9 Pulse 77 77 78 77 Resp B/P (MAP) 156/76 (102) 144/79 (100) 149/81 (103) 144/79 Pulse Ox 93 96 90 O2 Delivery Room Air Room Air 04/05/18 08:38 Pulse 78 B/P (MAP) 149/81 Intake and Output 04/04/18 04/04/18 04/05/18 15:00 23:00 07:00 Intake Total 300 ml Balance 300 ml CLARISSE [id number] MD Apr 05, 2018 10:50
--- NOTE | 2018-04-06 14:51 | PDOC3 ---
Discharge Summary Visit Information Date of Admission: Mar 29, 2018 Date of Discharge: Apr 05, 2018 Admitting Diagnosis Comment: Subacute right frontal stroke Obesity, BMI 52 Negative carotids Left-sided weakness Huge abd hernia, chronic Brief Hospital Course Allergies Allergies Coded Allergies Type Severity Reaction Last Updated Verified No Known Drug Allergies 03/29/18 No Vital Signs Vital Signs Date Time Temp Pulse Resp B/P (MAP) Pulse Ox O2 Delivery O2 Flow Rate FiO2 04/05/18 08:38 78 149/81 04/05/18 08:00 Room Air 04/05/18 07:00 97.9 18 90 97.9 Lab Results Laboratory Tests Test 04/04/18 17:26 04/04/18 21:18 04/05/18 07:41 Glucose (Fingerstick) 209 mg/dL (70-99) 170 mg/dL (70-99) 146 mg/dL (70-99) Brief Hospital Course Ms. Unger is a 47 old [sex] who presented with [ ] Brief Hospital Course Ms. Unger is a 47 old obese female, lives at home, admitted because of an acute CVA multiple areas,'s small. She presented with left-sided weakness and some slurred speech. She is self-pay. She was not on any aspirin prior to admission. MRI did show the subacute strokes. We started aspirin and statin. Needed to stay over the weekend because was very weak but unfortunately self-pay. I do agree she needs some form of rehabilitation. Family will pitch in for PT needs. I have left Rx on chart including aspirin and statin etc. Fall risk. Consults performed neurology Carotid Dopplers are negative. Echo is unremarkable. She initially thought she was having difficulty swallowing too, she may have some sort of anxiety. But cleared by UNDERWRITING CLERK, has been tolerating regular diet in house. dc 31 minutes, greater than 50% DC education counseling coordination. Discharge Information Condition at Discharge: Improved, Stable Disposition/Orders: Other (SNU) Scheduled Amlodipine Besylate (Amlodipine Besylate) 5 Mg Tablet, 5 MG PO DAILY for 30 Days , #30 Prescribed by: RADHA IMRANDA on 04/02/18 0854 Aspirin (Aspirin Ec) 325 Mg Tablet.dr 325 MG PO DAILYWBKFT for 30 Days, #30 Prescribed by: RADHA MIRANDA on 04/02/18 0854 Atorvastatin Calcium (Atorvastatin Calcium) 40 Mg Tablet, 40 MG PO QHS for 30 Days, #30 Prescribed by: RADHA MIRANDA on 04/02/18 0854 Clonidine (Clonidine Tts-1) 1 Each Patch.tdwk, 1 PATCH TD WEEKLY, (Reported) Entered as Reported by: GLENDY RAWLS on 03/29/181208 Last Taken: Unknown Dose on 03/28/18 Last Action: Continued on 03/29/18 125 by MARICHUY ESCALERA MD Diphenhydramine Hcl (Benadryl) 25 Mg Capsule, 50 MG PO HS, (Reported) Entered as Reported by: GLENDY RAWLS on 03/29/181208 Last Taken: Unknown Dose on 03/29/18 Last Action: HELD on 03/29/181250 by MARICHUY ESCALERA MD Ferrous Sulfate (Ferrous Sulfate) 325 Mg Tablet, 1 TAB PO DAILY, #30 Ref 3 ( Reported) Entered as Reported by: GLENDY RAWLS on 03/29/181208 Last Taken: Unknown Dose on 03/29/18 Last Action: Continued on 03/29/18 125 by MARICHUY ESCALERA MD Lactobacillus Rhamnosus Gg (Culturelle) 1 Each Cap.sprink, 1 EACH PO BID, ( Reported) Entered as Reported by: GLENDY RAWLS on 03/29/181208 Last Taken: Unknown Dose on 03/29/18 Last Action: HELD on 03/29/181250 by MARICHUY ESCALERA MD Lidocaine (Lidocaine) 1 Each Adh..patch, 1 EACH TP DAILY, (Reported) Entered as Reported by: GLENDY RAWLS on 03/29/181208 Last Taken: Unknown Dose on 03/29/18 Last Action: Converted on 03/29/18 125 by MARICHUY ESCALERA MD Losartan Potassium (Losartan Potassium) 50 Mg Tablet, 50 MG PO DAILY, (Reported) Entered as Reported by: GLENDY RAWLS on 03/29/181208 Last Taken: Unknown Dose on 03/29/18 Last Action: Continued on 03/29/18 1251 by MARICHUY ESCALERA MD Scheduled PRN Ondansetron (Ondansetron Odt) 4 Mg Tab.rapdis, 4 MG PO BID PRN for NAUSEA/ VOMITING, (Reported) Entered as Reported by: GLENDY RAWLS on 03/29/181208 Last Taken: Unknown Dose on 03/29/18 Last Action: HELD on 03/29/18 1251 by MARICHUY ESCALERA MD Miscellaneous Medications L. Rhamnosus GG/Inulin (Culturelle Capsule) 1 Each Cap.sprink, 1 EACH PO, ( Reported) Entered as Reported by: GLENDY RAWLS on 03/29/181208 Last Taken: Unknown Dose on 03/29/18 Last Action: HELD on 03/29/18 1251 by MD RUTH RIBEIRO CHERRIE Y MD Apr 06, 2018 14:51
== END 2018-04-05 09:25 | DRG 64 ==
LOC: 5 NORTH 11:07
PROVIDERS: ADMIT Internal Medicine; ATTEND Internal Medicine
DX: I63.9 Cerebral infarction, unspecified (principal); I26.99 Other pulmonary embolism without acute cor pulmonale; G93.41 Metabolic encephalopathy; Z68.43 Body mass index [BMI] 50.0-59.9, adult; E87.1 Hypo-osmolality and hyponatremia; M62.82 Rhabdomyolysis; N39.0 Urinary tract infection, site not specified; G81.94 Hemiplegia, unspecified affecting left nondominant side; E87.2 Acidosis; E66.01 Morbid (severe) obesity due to excess calories; K43.9 Ventral hernia without obstruction or gangrene; G47.33 Obstructive sleep apnea (adult) (pediatric); E86.0 Dehydration; E87.6 Hypokalemia; B95.8 Unspecified staphylococcus as the cause of diseases classified elsewhere; E11.40 Type 2 diabetes mellitus with diabetic neuropathy, unspecified; E78.5 Hyperlipidemia, unspecified; R13.10 Dysphagia, unspecified; E11.65 Type 2 diabetes mellitus with hyperglycemia; W06.XXXA Fall from bed, initial encounter; Z91.81 History of falling; Y92.003 Bedroom of unspecified non-institutional (private) residence as the place of occurrence of the external cause; Y93.89 Activity, other specified; Z71.9 Counseling, unspecified; Y99.8 Other external cause status; Z91.19 Patient's noncompliance with other medical treatment and regimen; Z79.01 Long term (current) use of anticoagulants; Z87.440 Personal history of urinary (tract) infections; Z86.73 Personal history of transient ischemic attack (TIA), and cerebral infarction without residual deficits; Z82.49 Family history of ischemic heart disease and other diseases of the circulatory system
CPT/HCPCS: 36415; 70551; 71045; 80048; 80061; 82962; 85007; 85025; 86147; 87040; 93880; 94760; C8929; J1815; J2543; J3490; J7030; 92523; 92610; 97110; 97116; 97530; 97535

== ENCOUNTER 2018-05-01 14:06 | Inpatient (IN) | payer SELFPAY ==
[~2018-05-01] VITALS: Ht 162.6 cm; Wt 126.1 kg
[~2018-05-01 14:06] MED LIST: AMLO5TAB7 PO; ASPI325T11 PO; ATOR40TA59 PO; CLON1PAT TD; DIPH25CA58 PO; FERR325T14 PO; L. R1CAP2 PO; LACT1CAP19 PO; LIDO700A39 TP; LOSA50TA7 PO; ONDA4TAB12 PO
[2018-05-01 17:45] VITALS: BP 183/77
[2018-05-01] MEDS ORDERED: DEXTROSE 50% 25 GM / 50ML DISP.SYRIN. IV PRN (18:30)
[2018-05-01] MEDS ORDERED: fentaNYL PF VIAL 100 MCG/2 ML VIAL IV PRN ×2 (18:30)
[2018-05-01] MEDS ORDERED: ONDANSETRON ODT 4 MG TAB.RAPDIS. PO PRN (18:45)
[2018-05-01 19:12] VITALS: BP 179/78
[2018-05-01] MEDS: IV DEXTROSE 5 %-0.45 % NACL 1,000 ML IV SCH (19:55)
[2018-05-01 20:12] LABS: BASO # 0.1 x10^3/uL (0.0-0.2); BASO % 1 % (0-3); EOS # 0.1 x10^3/uL (0.0-0.7); EOS % 1 % (0-3); LYMPH # 1.3 x10^3/uL (1.0-4.8); LYMPH % 16 % (24-48); MEAN CORPUSCULAR HEMOGLOBIN 27 pg (25-35); MEAN CORPUSCULAR HGB CONC 33 g/dL (31-37); MEAN CORPUSCULAR VOLUME 80 fL (79-100); MONO # 0.6 x10^3/uL (0.0-1.1); MONO % 7 % (0-9); NEUT # 5.9 x10^3uL (1.8-7.7); NEUT % 75 % (31-73); PLATELET COUNT 300 x10^3/uL (140-400); RED CELL DISTRIBUTION WIDTH 16.4 % (11.5-14.5); WHITE BLOOD COUNT 7.9 x10^3/uL (4.0-11.0)
[2018-05-01 20:25] LABS: ALBUMIN 3.1 g/dL (3.4-5.0); ALBUMIN/GLOBULIN RATIO 0.8 (1.0-1.7); CALCIUM 9.2 mg/dL (8.5-10.1); GFR 59.2; POTASSIUM 3.7 mmol/L (3.5-5.1); TOTAL BILIRUBIN 0.4 mg/dL (0.2-1.0)
[2018-05-01] MEDS: diphenhydrAMINE HCL 25 MG CAPSULE PO SCH (21:00)
[2018-05-01] MEDS: ATORVASTATIN CALCIUM 40 MG TABLET. PO SCH (21:00)
[2018-05-01] MEDS: LACTOBACILLUS RHAMNOSUS GG 1 CAPSULE. PO SCH (21:00)
[2018-05-01] MEDS: ENOXAPARIN 40 MG/0.4 ML SYRINGE. SQ SCH (22:01)
[2018-05-01] MEDS: NYSTATIN TOPICAL POWDER 15GM BOTTLE. TP SCH (22:02)
[2018-05-01 23:01] VITALS: BP 182/76
[2018-05-02] VITALS (7 sets, daily range): BP systolic 145–178; BP diastolic 55–76
[2018-05-02] MEDS ORDERED: cloNIDine TTS-1 1 PATCH PATCH.TDWK TD ONE
[2018-05-02] MEDS: ASPIRIN ENTERIC COATED 325 MG TABLET.DR. PO SCH (08:00)
[2018-05-02] MEDS: INSULIN LISPRO 300 UNITS/3 ML INSULN.PEN. SQ SCH ×3 (08:07→16:17)
[2018-05-02] MEDS: ENOXAPARIN 40 MG/0.4 ML SYRINGE. SQ SCH (08:34)
[2018-05-02] MEDS: LIDOCAINE (700MG/PATCH) PATCH. TD SCH (08:34)
[2018-05-02] MEDS: IV DEXTROSE 5 %-0.45 % NACL 1,000 ML IV SCH ×2 (08:35→22:50)
[2018-05-02] MEDS: NYSTATIN TOPICAL POWDER 15GM BOTTLE. TP SCH ×2 (08:38→21:37)
[2018-05-02] MEDS: FERROUS SULFATE 325 MG TABLET. PO SCH (09:00)
[2018-05-02] MEDS: LOSARTAN POTASSIUM 50 MG TABLET. PO SCH (09:00)
[2018-05-02] MEDS: amLODIPine BESYLATE 5 MG TABLET PO SCH (09:00)
[2018-05-02] MEDS: LACTOBACILLUS RHAMNOSUS GG 1 CAPSULE. PO SCH ×2 (09:00→21:00)
[2018-05-02] MEDS ORDERED: ANTI-COAG MONITOR BY PHARMACY. MC PRN (09:15)
--- NOTE | 2018-05-02 09:25 | PDOC2 ---
GI CONSULT Reason For Consult: Dysphagia, r/o esophageal stricture HPI: HPI: 48 y/o morbidly obese woman sent to [facility] from [place]. She is not forthcoming w/ information, but tells me she has had issues w/ swallowing for about 1 month. Sometimes food, liquids, or pills get stuck in her throat. Sometimes they eventually pass, but sometimes she has to cough them up. She can't tell me how often this occurs. She's not sure if she ate anything yesterday. Sometimes it hurts to swallow, but not always. Mentions her pills have to be crushed. Thinks she takes iron and ASA. Denies reflux/heartburn, nausea, abdominal pain, diarrhea, constipation, hematochezia, and melena. No previous EGD or colonoscopy. No GB, liver, or pancreas history. D/w Dr. Beckham - h/o multiple strokes, has bilateral PEs. Concern for neurogenic dysphagia, she hasn't been eating or drinking for days, might have had an abnormal swallow eval at the care home, and is open to the idea of a feeding tube if needed. WELLNESS EDUCATOR to see here. PMH: PMH: HTN, CVAs, LAZARO (CPAP), bilateral PEs, DM, UTI, umbilical hernia repair, neck surgery FH: Family History: No pertinent hx (denies GI cancers) Social History: Smoke: No ALCOHOL: none Drugs: None ROS: GEN: Denies fevers, chills, sweats HEENT: Denies blurred vision, sore throat CV: Denies chest pain RESP: Denies shortness of air, cough GI: Per HPI : Denies hematuria, dysuria ENDO: Denies weight changes NEURO: Denies confusion, dizziness MSK: Denies weakness, joint pain/swelling SKIN: Denies jaundice, pruritus Vitals: Vitals: Vital Signs Date Time Temp Pulse Resp B/P (MAP) Pulse Ox O2 Delivery O2 Flow Rate FiO2 05/02/18 07:00 97.7 51 18 145/55 (85) 99 Room Air 97.7 Labs: Labs: Laboratory Tests Test 05/01/18 19:40 05/01/18 21:25 05/02/18 07:32 White Blood Count 7.9 x10^3/uL (4.0-11.0) Red Blood Count 4.50 x10^6/uL (3.50-5.40) Hemoglobin 12.0 g/dL (12.0-15.5) Hematocrit 36.0 % (36.0-47.0) Mean Corpuscular Volume 80 fL (79-100) Mean Corpuscular Hemoglobin 27 pg (25-35) Mean Corpuscular Hemoglobin Concent 33 g/dL (31-37) Red Cell Distribution Width 16.4 % (11.5-14.5) Platelet Count 300 x10^3/uL (140-400) Neutrophils (%) (Auto) 75 % (31-73) Lymphocytes (%) (Auto) 16 % (24-48) Monocytes (%) (Auto) 7 % (0-9) Eosinophils (%) (Auto) 1 % (0-3) Basophils (%) (Auto) 1 % (0-3) Neutrophils # (Auto) 5.9 x10^3uL (1.8-7.7) Lymphocytes # (Auto) 1.3 x10^3/uL (1.0-4.8) Monocytes # (Auto) 0.6 x10^3/uL (0.0-1.1) Eosinophils # (Auto) 0.1 x10^3/uL (0.0-0.7) Basophils # (Auto) 0.1 x10^3/uL (0.0-0.2) Sodium Level 141 mmol/L (136-145) Potassium Level 3.7 mmol/L (3.5-5.1) Chloride Level 103 mmol/L (98-107) Carbon Dioxide Level 28 mmol/L (21-32) Anion Gap 10 (6-14) Blood Urea Nitrogen 15 mg/dL (7-20) Creatinine 1.0 mg/dL (0.6-1.0) Estimated GFR (Cockcroft-Gault) 59.2 BUN/Creatinine Ratio 15 (6-20) Glucose Level 173 mg/dL (70-99) Calcium Level 9.2 mg/dL (8.5-10.1) Total Bilirubin 0.4 mg/dL (0.2-1.0) Aspartate Amino Transf (AST/SGOT) 18 U/L (15-37) Alanine Aminotransferase (ALT/SGPT) 21 U/L (14-59) Alkaline Phosphatase 203 U/L (46-116) Total Protein 7.0 g/dL (6.4-8.2) Albumin 3.1 g/dL (3.4-5.0) Albumin/Globulin Ratio 0.8 (1.0-1.7) Glucose (Fingerstick) 148 mg/dL (70-99) 115 mg/dL (70-99) Allergies: Coded Allergies: No Known Drug Allergies (Unverified , 03/29/18) Medications: Current Medications Medications (Trade) Dose Ordered Sig/Emmy Route PRN Reason Start Time Stop Time Status Last Admin Dose Admin Enoxaparin Sodium (Lovenox 40mg Syringe) 40 mg Q12HR SQ 05/01/18 21:00 05/02/18 09:05 DC 05/02/18 08:34 Dextrose/Sodium Chloride 1,000 ml @ 75 mls/hr [id number] IV 05/01/18 18:30 05/02/18 08:35 Nystatin (Nystop) 1 luis alberto BID TP 05/01/18 21:00 05/02/18 08:38 Lidocaine (Lidoderm) 1 patch DAILY TD 05/02/18 09:00 05/02/18 08:34 Clonidine HCl (Catapres Tts-1) 1 patch ONCE ONCE TD 05/02/18 00:00 05/02/18 00:01 DC 05/02/18 00:00 Imaging: Imaging: - PE: GEN: NAD, morbidly obese HEENT: Atraumatic, PERRL LUNGS: CTAB HEART: RRR ABD: BS+, obese, non-tender SKIN: previous hernia repair - midline scars w/ mild erythema and a small sore NEURO/PSYCH: A & O 3 - slow to answer, keeps eyes on tv, speaks softly A/P: A/P: Dysphagia CRC screen - average risk H/o strokes, bilateral PEs, DM Morbid obesity -- Await WELLNESS EDUCATOR eval - consider EGD based on this. PEG might be difficult w/ obesity. LEONOR CANSECO May 02, 2018 09:25
--- NOTE | 2018-05-02 10:50 | HP ---
ADMIT DATE: 05/01/2018 HISTORY OF PRESENT ILLNESS: The patient is a 48-year-old female patient, a resident at [facility] in [place] whom I have seen yesterday for followup. She apparently has been having dysphagia. She was evaluated by the speech therapy there and she was having difficulty swallowing both solids and liquids and has not been eating or drinking 4 days now. She has also sometimes recurrent bouts of vomiting, has not been able to swallow her medication and therefore, a decision was made to admit her directly to [facility] to consult the speech therapist as well as the tennis professional that she might require evaluation of her esophagus and perhaps even placement of a gastrostomy tube. The patient is not against placement of the gastrostomy tube and that is what needs to be done. PAST MEDICAL HISTORY: Significant for numerous medical problems including type 2 diabetes mellitus and hypertension. She has also pulmonary emboli and multiple CVAs. PAST SURGICAL HISTORY: Significant for ventral hernia repair. FAMILY HISTORY: Positive for hypertension. SOCIAL HISTORY: She is single, never , has no children. She does not smoke, drink alcohol or use any recreational drugs. ALLERGIES: She has no known drug allergies. MEDICATIONS: She is currently on following medications: She is on diphenhydramine 50 mg at bedtime, ferrous sulfate 325 mg once a day, atorvastatin 40 mg at bedtime, clonidine TTS 1 transdermal applied weekly, amlodipine 5 mg once a day, losartan potassium 50 mg daily. She is on aspirin 325 mg once a day, ondansetron 4 mg every 4 hours as needed, Lactobacillus rhamnosus 1 twice a day, and she is also on Eliquis 5 mg p.o. b.i.d. Unfortunately, the patient is unable to swallow it, and I think we started her on Lovenox 130 mg subcutaneously twice a day. She is also on modafinil 100 mg daily and insulin sliding scale. REVIEW OF SYSTEMS: As per history of present illness. PHYSICAL EXAMINATION GENERAL: When I examined her, she looked somewhat pale, not jaundiced, cyanosis or thyromegaly. No jugular venous distention. No limb edema. VITAL SIGNS: Her heart rate was 75, blood pressure was 183/77, temperature was 98.7, respiratory rate was 18 and oxygen saturation was 97%. HEAD, EYES, EARS, NOSE AND THROAT: Showed normocephalic, atraumatic. NECK: Supple. HEART: Showed normal first and second heart sounds with no gallop, rub or murmur. CHEST: Clear to auscultation. No crepitation or rhonchi. ABDOMEN: Distended, soft, nontender. No guarding or rigidity. No organomegaly. All hernial orifices intact. Bowel sounds normal. NEUROLOGIC: She is awake, alert, responding appropriately. All cranial nerves intact. EXTREMITIES: She moves upper extremities to much good extent than lower extremities. She is mostly bedbound, chair bound. LABORATORY DATA: On arrival showed a white cell count of 7900, hemoglobin 12, hematocrit 36, MCV 80 and platelet count of 300,000. Her chemistry showed a serum sodium of 141, potassium 3.7, chloride 103, bicarbonate 28, anion gap of 10, BUN 15, creatinine 1, estimated GFR was 59 mL per minute. Her glucose 173, calcium was 9.2. Total bilirubin, AST, ALT were normal. Alkaline phosphatase slightly elevated. Total protein 7, albumin 3.1. IMPRESSION: In summary, this is a 48-year-old female patient, resident at [facility], was admitted with dysphagia. The patient is known to have foci of recent subacute infarct involving the right frontal white matter, oh radiata, basal ganglia as well as right extreme capsula and insula. She has also several old lacunar infarcts bilaterally. She has left-sided hemiparesis with cognitive and self-care deficit. Other medical problems include: 1. Hypertension. 2. Hyperlipidemia. 3. Type 2 diabetes mellitus. 4. Morbid obesity. 5. Obstructive sleep apnea. 6. Bilateral pulmonary emboli. My plan is to obviously continue with the Lovenox 130 mg subcutaneously twice a day. Continue with IV fluid, continue to monitor her blood sugar. I have consulted the speech therapist as well as the tennis professional. She may ultimately require percutaneous endoscopic colostomy tube placement that she has not been eating for days now. GEOVANNI GOMEZ MD DR: BRITTANY/camille JOB#: [id number] / [id number]
[2018-05-02] MEDS: ATORVASTATIN CALCIUM 40 MG TABLET. PO SCH (21:00)
[2018-05-02] MEDS: diphenhydrAMINE HCL 25 MG CAPSULE PO SCH (21:00)
[2018-05-02] MEDS: PATCH REMOVAL. MC SCH (21:00)
[2018-05-03] VITALS (10 sets, daily range): BP systolic 157–198; BP diastolic 59–90
--- NOTE | 2018-05-03 03:07 | PN ---
DATE: 05/02/2018 SUBJECTIVE: The patient is resting flat, comfortably in bed, in no apparent distress. On questioning her, she denied any complaint. Nursing staff did not voice any concerns that she has an eventful night. PHYSICAL EXAMINATION: GENERAL: When I examined her, she looked pale. No jaundice, cyanosis, or thyromegaly. No jugular venous distension. No limb edema. VITAL SIGNS: Her heart rate was 51, blood pressure was 145/55, temperature was 97.7, respiratory rate was 18 and oxygen saturation was 99%. HEAD, EYES, EARS, NOSE AND THROAT: Showed normocephalic, atraumatic. NECK: Supple. HEART: Showed normal first and second heart sounds. No gallop or murmur. CHEST: Clear to auscultation. No crepitation or rhonchi. ABDOMEN: Distended, soft, nontender. NEUROLOGIC: She is awake, alert, responding appropriately. All cranial nerves intact. She has left-sided hemiparesis. She is mostly bed bound and chair bound. She has intertriginous candidiasis involving the skin folds under the breast and the abdomen, under her apron. Her intake and output are incompletely recorded. LABORATORY DATA: Reviewed and are within normal range. ASSESSMENT AND PLAN: We have consulted the Gastroenterology team as well as the speech therapist. Meanwhile, continue with IV fluid. I increased her Lovenox to 130 mg subcutaneous twice a day as therapeutic as she is unable to swallow her Eliquis. We will await the evaluation by the speech therapist and histology tech. GEOVANNI GOMEZ MD DR: BRITTANY/camille JOB#: [id number] / [id number]
[2018-05-03 05:42] LABS: HEMATOCRIT 33.8 % (36.0-47.0); HEMOGLOBIN 11.2 g/dL (12.0-15.5); RED BLOOD COUNT 4.21 x10^6/uL (3.50-5.40); RED CELL DISTRIBUTION WIDTH 16.6 % (11.5-14.5); WHITE BLOOD COUNT 6.2 x10^3/uL (4.0-11.0)
[2018-05-03 05:49] LABS: CALCIUM 8.3 mg/dL (8.5-10.1); CREATININE 0.9 mg/dL (0.6-1.0); GFR 66.8; POTASSIUM 3.3 mmol/L (3.5-5.1)
[2018-05-03] MEDS ORDERED: LIDOCAINE 1% PF 2 ML VIAL. ID PRN ×2 (07:00→14:00)
[2018-05-03] MEDS ORDERED: HYDROmorphone 2 MG/ML VIAL IV PRN (07:00)
[2018-05-03] MEDS ORDERED: PROCHLORPERAZINE 10 MG/2 ML VIAL. IV PRN (07:00)
[2018-05-03] MEDS ORDERED: fentaNYL PF VIAL 100 MCG/2 ML VIAL IV PRN ×4 (07:00→14:00)
[2018-05-03] MEDS ORDERED: MORPHINE SULFATE 2 MG/ML VIAL. IV PRN (07:00)
[2018-05-03] MEDS ORDERED: ONDANSETRON PF 4 MG/2 ML VIAL. IV PRN (07:00)
[2018-05-03] MEDS ORDERED: IV RINGERS,LACTATED 1000ML 1,000 ML IV SCH ×2 (07:00→13:56)
[2018-05-03] MEDS: ASPIRIN ENTERIC COATED 325 MG TABLET.DR. PO SCH (08:00)
[2018-05-03] MEDS: INSULIN LISPRO 300 UNITS/3 ML INSULN.PEN. SQ SCH ×3 (08:00→17:00)
[2018-05-03] MEDS: LOSARTAN POTASSIUM 50 MG TABLET. PO SCH ×2 (09:00→09:10)
[2018-05-03] MEDS: LACTOBACILLUS RHAMNOSUS GG 1 CAPSULE. PO SCH ×3 (09:00→21:40)
[2018-05-03] MEDS: amLODIPine BESYLATE 5 MG TABLET PO SCH ×2 (09:00→09:11)
[2018-05-03] MEDS: FERROUS SULFATE 325 MG TABLET. PO SCH (09:00)
[2018-05-03] MEDS: LIDOCAINE (700MG/PATCH) PATCH. TD SCH (09:05)
[2018-05-03] MEDS: NYSTATIN TOPICAL POWDER 15GM BOTTLE. TP SCH ×2 (09:05→21:42)
[2018-05-03] MEDS: ENALAPRILAT 1.25 MG/ML VIAL. IVP PRN ×2 (10:02→16:25)
[2018-05-03] MEDS: IV DEXTROSE 5 %-0.45 % NACL 1,000 ML IV SCH (10:07)
[2018-05-03] MEDS ORDERED: MIDAZOLAM HCL/PF 2 MG/2 ML VIAL. IV PRN (14:00)
[2018-05-03] MEDS ORDERED: PROPOFOL 20 ML IV ONE (14:22)
--- NOTE | 2018-05-03 14:32 | PDOC4 ---
PROCEDURE Procedure EGD Indication: "dysphagia" Meds: per anesthesia Findings: E--LA grade A esophagitis at 40cm. G--Normal D--Normal to second portion. Mikey. well. IMP: Reflux esophagitis. No stricture Motility? REC: PPI daily. Barium esophagram. OK to try diet if she will. KLEBER TREJO MD May 03, 2018 14:32
[2018-05-03] MEDS: POTASSIUM CL 40MEQ D5-0.45NACL 1,000 ML IV SCH (17:36)
[2018-05-03] MEDS: PATCH REMOVAL. MC SCH (21:00)
[2018-05-03] MEDS: diphenhydrAMINE HCL 25 MG CAPSULE PO SCH ×2 (21:00→21:40)
[2018-05-03] MEDS: ATORVASTATIN CALCIUM 40 MG TABLET. PO SCH ×2 (21:00→21:40)
[2018-05-04] MEDS: ENALAPRILAT 1.25 MG/ML VIAL. IVP PRN (01:36)
[2018-05-04 01:41] VITALS: BP 189/76
[2018-05-04 03:36] VITALS: BP 186/80
--- NOTE | 2018-05-04 03:53 | PN ---
DATE: 05/03/2018 SUBJECTIVE: The patient underwent yesterday bedside swallow evaluation and they recommended regular diet as tolerated per patient's preference, may need to consider mechanical soft diet. She is actually scheduled for upper GI endoscopy today. On questioning her today, she denied any complaint. PHYSICAL EXAMINATION: GENERAL: When I examined her, she was somewhat pale, but no jaundice, cyanosis, or thyromegaly. No jugular venous distension. No lower limb edema. VITAL SIGNS: Her heart rate was 57, blood pressure was 198/77, temperature was 98.4, respiratory rate was 16, and oxygen saturation was 95%. The rest of clinical examination is unremarkable, has not really changed. LABORATORY DATA: Her white cell count was 6200; hemoglobin 11; hematocrit 33; MCV 80; and platelet count . Her chemistry this morning showed a serum sodium 137, potassium 3.3, chloride 103, bicarbonate 24, anion gap of 10, BUN 10, creatinine 0.9, estimated GFR was 66 mL per minute. Her glucose was high at 365 and calcium was 8.3. According to the Speech Therapy, the patient has some kind of inorganic behavioral bolus holding, isolated thin liquid via cup and straw. PLAN: To continue with IV fluid. Await the Gastroenterology evaluation and the result of upper GI endoscopy. GEOVANNI GOMEZ MD DR: BRITTANY/camille JOB#: [id number] / [id number]
[2018-05-04] MEDS ORDERED: cloNIDine TTS-2 1 PATCH PATCH TD SCH (05:00)
[2018-05-04 07:00] VITALS: BP 164/73
[2018-05-04] MEDS ORDERED: PANTOPRAZOLE 40 MG TABLET.DR. PO SCH (07:30)
[2018-05-04] MEDS ORDERED: SIMETHICONE/SOD BICARB/CITRIC ACID PACKET. PO ONE (08:00)
[2018-05-04] MEDS ORDERED: BARIUM SULFATE 60% 355 ML SUSP PO ONE (08:00)
[2018-05-04] MEDS ORDERED: BARIUM SULFATE 340 GM SUSPENSION. PO ONE (08:00)
[2018-05-04] MEDS: ASPIRIN ENTERIC COATED 325 MG TABLET.DR. PO SCH (08:00)
[2018-05-04] MEDS: INSULIN LISPRO 300 UNITS/3 ML INSULN.PEN. SQ SCH ×3 (08:00→17:00)
[2018-05-04] MEDS: POTASSIUM CL 40MEQ D5-0.45NACL 1,000 ML IV SCH (08:03)
[2018-05-04] MEDS: LACTOBACILLUS RHAMNOSUS GG 1 CAPSULE. PO SCH (09:20)
[2018-05-04] MEDS: FERROUS SULFATE 325 MG TABLET. PO SCH (09:20)
[2018-05-04] MEDS: amLODIPine BESYLATE 5 MG TABLET PO SCH (09:21)
[2018-05-04] MEDS: LOSARTAN POTASSIUM 50 MG TABLET. PO SCH (09:21)
[2018-05-04] MEDS: NYSTATIN TOPICAL POWDER 15GM BOTTLE. TP SCH (09:21)
[2018-05-04] MEDS: LIDOCAINE (700MG/PATCH) PATCH. TD SCH (09:22)
--- NOTE | 2018-05-04 09:52 | RAD ---
Esophagram-canceled exam, 05/04/2018: History: Dysphasia The study was attempted utilizing thin liquid barium. 1.3 minutes of fluoroscopy time was utilized. 2 video fluoroscopic sequences were recorded. The patient ingested a small amount of liquid barium into her mouth but refused to swallow the materials. It was unclear whether she was unable or simply indwelling to swallow. We were therefore unable to evaluate the esophagus at this time. A video dysphasia evaluation by speech pathology is suggested.
[2018-05-04 11:00] VITALS: BP 135/82
--- NOTE | 2018-05-04 14:59 | PDOC ---
Subjective: Subjective: I asked her what happened with the esophagram - "I couldn't swallow that." She doesn't offer much else. Objective: Objective: Reviewed chart and d/w RN. Eats plain sherbet w/o issue, but then refuses to eat sherbet with crushed pills. She takes bites of other foods like mashed potatoes - swallows without difficulty and then says "I can't eat that." Vital Signs: Vital Signs Date Time Temp Pulse Resp B/P (MAP) Pulse Ox O2 Delivery O2 Flow Rate FiO2 05/04/18 11:00 97.7 54 18 135/82 (99) 97 Room Air 97.7 Labs: Laboratory Tests Test 05/03/18 17:03 05/03/18 20:39 05/04/18 07:48 05/04/18 11:18 Glucose (Fingerstick) 119 mg/dL (70-99) 145 mg/dL (70-99) 135 mg/dL (70-99) 141 mg/dL (70-99) Imaging: Esophagram 05/03 The study was attempted utilizing thin liquid barium. 1.3 minutes of fluoroscopy time was utilized. 2 video fluoroscopic sequences were recorded. The patient ingested a small amount of liquid barium into her mouth but refused to swallow the materials. It was unclear whether she was unable or simply indwelling to swallow. We were therefore unable to evaluate the esophagus at this time. A video dysphasia evaluation by speech pathology is suggested. EGD 05/02 E--LA grade A esophagitis at 40cm. G--Normal D--Normal to second portion. IMP: Reflux esophagitis. No stricture Motility? REC: PPI daily. Barium esophagram. OK to try diet if she will. PE: GEN: NAD, laying flat LUNGS: CTAB HEART: RRR ABD: obese NEURO/PSYCH: A & O 3, speaks slowly and quietly, using only a few words A/P: "Dysphagia" - normal bedside swallow eval, no stricture on EGD, not cooperative w/ esophagram GERD - PPI ordered, refusing -- Refusing to swallow? Staff has witnessed her eat sherbet and mashed potatoes. D/w Dr. Beckham - difficult situation - she's not eating well or taking her meds, difficult to discharge her back to facility like this. Will review w/ Dr. Huntley - probably not a good candidate for PEG considering evaluation so far. LEONOR CANSECO May 04, 2018 14:59
[2018-05-04 15:00] VITALS: BP 138/99
[2018-05-04] MEDS ORDERED: ENOX40DI SQ (15:13)
--- NOTE | 2018-05-04 19:57 | DS ---
DATE OF DISCHARGE: 05/04/2018 HOSPITAL COURSE: The patient was admitted from [facility] in [place]. She is having problems with dysphagia. Her intake is poor and she has not been taking her medication. She has history of PE for which she is supposed to be on apixaban. She also has poorly-controlled hypertension. She is not taking her antihypertensive medication. She was seen by the speech therapist and their conclusion is that for all intents and purposes, she is able to swallow both solids and liquids without any problem and their interpretation of the swallowing evaluation is mostly behavioral. She has had upper GI endoscopy, which showed that there is no evidence of any esophageal stricture and she does have reflux esophagitis, but no strictures and Dr. Huntley questioned esophageal dysmotility. Unfortunately, the patient did not cooperate with barium esophagogram and she refused to swallow the barium. Given that her intake is very variable, the nursing staff has seen that she was able to eat and drink without difficulty. I decided to discharge her back to [facility]. I did start her on clonidine patch and her blood pressure has been well controlled. I will continue with Lovenox 1 mg/kg subQ twice a day as therapeutic for pulmonary embolism and we will get a psych consult to see her there. PHYSICAL EXAMINATION: GENERAL: When I examined her this afternoon, she was resting flat, comfortably in bed, in no apparent respiratory distress. No pallor, jaundice, cyanosis, or thyromegaly. No jugular venous distension. No lower limb edema. VITAL SIGNS: Her heart rate was 54, blood pressure was 135/82, temperature was 97.7, respiratory rate was 18 and oxygen saturation was 97%. HEAD, EYES, EARS, NOSE AND THROAT: Showed normocephalic, atraumatic. NECK: Supple. HEART: Showed normal first and second sounds. No gallop, rub or murmur. CHEST: Clear to auscultation. No crepitation or rhonchi. ABDOMEN: Distended, soft, nontender. No guarding or rigidity. No organomegaly. Hernial orifice intact. Bowel sounds normal. NEUROLOGIC: She is awake, alert, responding appropriately, although she seemed to be mostly withdrawn and does not really interact, does seem to be very concerned about all her illnesses. All her cranial nerves intact. She moves extremities without difficulty, although she is mostly bedbound, chair bound. Her intake over the last 24 hours and output were incompletely recorded. LABORATORY DATA: As of yesterday showed a white cell count of 6200, hemoglobin 11, hematocrit 33, MCV 80 and platelet count 239,000. Her chemistry showed her serum sodium was 137, potassium was 3.3, chloride was 103, bicarbonate was 24, anion gap of 10, BUN 10, creatinine 0.9, estimated GFR was 67 mL per minute. Her glucose was 138 and calcium was 8.3. DISPOSITION: She was discharged back to [facility] in [place]. DISCHARGE MEDICATIONS: To continue with Lovenox 130 mg subcutaneously twice a day, amlodipine 5 mg once a day, aspirin 325 mg once a day, atorvastatin calcium 40 mg at bedtime, [id number] once a week, diphenhydramine or Benadryl 50 mg at bedtime, ferrous sulfate 325 mg once a day, lactobacillus rhamnosus 1 capsule twice a day, Lidoderm patch topically once a day, losartan potassium 50 mg once a day and ondansetron 4 mg p.o. b.i.d. for nausea and vomiting. FINAL DISCHARGE DIAGNOSES: 1. Psychological dysphagia as the patient has a quite variable performance. She is able to eat and drink at times. 2. She has type 2 diabetes, hypertension, multiple cerebrovascular accidents and pulmonary emboli. She is also known to have morbid obesity and questionable obstructive sleep apnea. GEOVANNI GOMEZ MD DR: BRITTANY/camille JOB#: [id number] / [id number]
[2018-05-09] MEDS ORDERED: cloNIDine TTS-1 1 PATCH PATCH.TDWK TD SCH (09:00)
== END 2018-05-04 19:21 | DRG 392 ==
LOC: 4 NORTH 17:24
PROVIDERS: ADMIT Internal Medicine; ATTEND Internal Medicine
PROC: 0DJ08ZZ Inspection of Upper Intestinal Tract, Via Natural or Artificial Opening Endoscopic (ICD-10-PCS; principal; 2018-05-03 14:30)
DX: K21.0 Gastro-esophageal reflux disease with esophagitis (principal); I69.354 Hemiplegia and hemiparesis following cerebral infarction affecting left non-dominant side; Z68.42 Body mass index [BMI] 45.0-49.9, adult; R13.19 Other dysphagia; K22.4 Dyskinesia of esophagus; E11.9 Type 2 diabetes mellitus without complications; E66.01 Morbid (severe) obesity due to excess calories; E78.5 Hyperlipidemia, unspecified; G47.33 Obstructive sleep apnea (adult) (pediatric); I10 Essential (primary) hypertension; Z53.29 Procedure and treatment not carried out because of patient's decision for other reasons; Z82.49 Family history of ischemic heart disease and other diseases of the circulatory system; Z86.711 Personal history of pulmonary embolism; Z74.01 Bed confinement status
CPT/HCPCS: 36415; 43235; 74220; 80048; 80053; 82962; 85025; 85027; 87641; J1650; J1815; J2704; J3010; J7042; J7120; Q0163; 92610

== ENCOUNTER 2018-05-10 15:45 | Emergency (ER) | payer SELFPAY ==
[~2018-05-10] VITALS: Ht 165.1 cm; Wt 129.7 kg
[~2018-05-10 15:45] MED LIST changes: +ENOX40DI SQ
--- NOTE | 2018-05-10 16:15 | PHYS DOC ---
Adult General Chief Complaint Chief Complaint: OTHER COMPLAINTS HPI HPI Patient is a 48 year old female with history of hypertension, diabetes type 2, CVA, PEs , who presents today from [facility]. Patient was sent to the ED because she is refusing to swallow. I spoke to patient's PCP Dr. Gomez, he states patient is depressed and needs to go to a psych facility. He states patient was admitted a few days ago and had multiple tests done to see why she cannot swallow including a swallow study as well as an upper GI series, he states all the tests came back negative. He states this patient needs to be taken to a psych facility and be put on psych medications. He is requesting PAT team to facilitate transfer to a psych facility. Patient herself states she can not swallow because he throat hurts. Denies SI or HI Review of Systems Review of Systems Constitutional: Denies fever or chills [] Eyes: Denies change in visual acuity, redness, or eye pain [] HENT: Denies nasal congestion or sore throat [] Respiratory: Denies cough or shortness of breath [] Cardiovascular: No additional information not addressed in HPI [] GI: Denies abdominal pain, nausea, vomiting, bloody stools or diarrhea [] : Denies dysuria or hematuria [] Musculoskeletal: Denies back pain or joint pain [] Integument: Denies rash or skin lesions [] Neurologic: Denies headache, focal weakness or sensory changes [] Psych: Depression, dizzy she cannot swallow All other systems were reviewed and found to be within normal limits, except as documented in this note. Allergies Allergies Allergies Coded Allergies Type Severity Reaction Last Updated Verified No Known Drug Allergies 05/03/18 No Physical Exam Physical Exam Constitutional: Well developed, well nourished, no acute distress, non-toxic appearance. [] HENT: Normocephalic, atraumatic, bilateral external ears normal, oropharynx moist, no oral exudates, nose normal. Tolerating secretions with no difficulties Eyes: PERRLA, EOMI, conjunctiva normal, no discharge. [] Neck: Normal range of motion, no tenderness, supple, no stridor. [] Cardiovascular:Heart rate regular rhythm, no murmur [] Lungs & Thorax: Bilateral breath sounds clear to auscultation [] Abdomen: Rounded abdomen. Bowel sounds normal, soft, no tenderness, no masses, no pulsatile masses. [] Skin: Warm, dry, no erythema, no rash. [] Back: No tenderness, no CVA tenderness. [] Extremities: No tenderness, no cyanosis, no clubbing, ROM intact, no edema. [] Neurologic: Alert and oriented X 3, normal motor function, normal sensory function, no focal deficits noted. [] Psychologic: Flat affect, appears depressed Current Patient Data Vital Signs Vital Signs Date Time Temp Pulse Resp B/P (MAP) Pulse Ox O2 Delivery O2 Flow Rate FiO2 05/10/18 15:55 98.6 74 16 173/92 (119) 95 Room Air 98.6 EKG EKG [] Radiology/Procedures Radiology/Procedures [] Course & Med Decision Making Course & Med Decision Making Pertinent Labs and Imaging studies reviewed. (See chart for details) This is a 48-year-old female patient who presents [facility] ED [facility], I spoke to the PCP, he is requesting patient to be transferred to a psych facility because she is refusing to swallow. See history of present illness. Galo from the PAT team evaluated patient and stated she does not qualify for inpatient psych admission. He spoke with Dr. Gomez who requested we send patient back to the senior living. Dragon Disclaimer Dragon Disclaimer This electronic medical record was generated, in whole or in part, using a voice recognition dictation system. Departure Departure Impression: Primary Impression: Swallowing pain Disposition: 03 TRANSFER SNF Condition: STABLE Referrals: NO PCP (PCP) GEOVANNI GOMEZ MD, Dr. will follow up with you in the senior living. Patient Instructions: Dysphagia Additional Instructions: You were evaluated in the ED with the PAT team. You did not meet criteria for inpatient pysch admission. Dr. Gomez will follow up with you in the senior living. RONALD CAMERON [employer] May 10, 2018 16:15
[2018-05-10 18:00] VITALS: BP 133/80
== END 2018-05-10 19:22 | disposition home or self-care (01) ==
LOC: ER 15:45
DX: R13.10 Dysphagia, unspecified (principal); I10 Essential (primary) hypertension; R42 Dizziness and giddiness; F32.9 Major depressive disorder, single episode, unspecified; E11.9 Type 2 diabetes mellitus without complications; Z86.73 Personal history of transient ischemic attack (TIA), and cerebral infarction without residual deficits
CPT/HCPCS: 99281; 99283